=== PATIENT | male | born 1965 | race Caucasian/White ===

== ENCOUNTER → 2018-05-19 13:05 | Outpatient (REF) | payer MEDICARE, SELFPAY ==
[2018-05-19 14:17] LABS: ALT 19 U/L (12-78); AST 14 U/L (15-37); Albumin 3.2 g/dL (3.4-5.0); Alkaline Phosphatase 99 U/L (46-116); Anion Gap 7.9 mmol/L (3-11); BUN 9 mg/dL (7-18); Bilirubin, Total 0.1 mg/dL (0.2-1.0); CO2 28.1 mmol/L (21.0-32.0); CREATININE 0.96 mg/dL (0.70-1.30); Calcium 8.6 mg/dL (8.5-10.1); Chloride 103 mmol/L (98-107); Glucose 87 mg/dL (70-100); Potassium 4.5 mmol/L (3.5-5.1); Sodium 139 mmol/L (136-145); Total Protein 6.6 g/dL (6.4-8.2)
[2018-05-19 14:21] LABS: VALPROIC ACID 70.5 ug/mL (50-100)
== END ==
LOC: NCHCN 13:05
PROVIDERS: PCP Nurse Practitioner Family; Visit Provider Nurse Practitioner Family
DX: R56.9 Unspecified convulsions (principal); Z51.81 Encounter for therapeutic drug level monitoring; Z79.899 Other long term (current) drug therapy
CPT/HCPCS: 80053; 80164

== ENCOUNTER → 2018-07-23 09:44 | Outpatient (BNVA) | payer MEDICARE, SELFPAY | PROVIDERS: Visit Provider Psychiatry & Neurology Neurology | DX: G44.40 Drug-induced headache, not elsewhere classified, not intractable; G43.709 Chronic migraine without aura, not intractable, without status migrainosus; G40.109 Localization-related (focal) (partial) symptomatic epilepsy and epileptic syndromes with simple partial seizures, not intractable, without status epilepticus; J44.9 Chronic obstructive pulmonary disease, unspecified; F17.210 Nicotine dependence, cigarettes, uncomplicated | CPT/HCPCS: 99205; 99215 ==

== ENCOUNTER 2018-07-29 11:31 | Emergency (ER) | payer MEDICARE, SELFPAY ==
[2018-07-29 11:39] VITALS: BP 100/63; PULSE 70; RESP 16; TEMP 36.3; O2SAT 97
--- NOTE | 2018-07-29 12:44 | W.ED.GENAD ---
Discharge Plan Disposition Patient Disposition: HOME Condition: Good Discharge Details Chief Complaint: Laceration Clinical Impression: Abrasion of scalp Primary Care Provider: Elsie Barrios ED Provider: Efrain Edgar Home Meds and New Rx's Prescriptions: No Action topiramate [Trokendi XR] 200 mg capsule,extended release 24hr 200 mg PO DAILY Qty: 30 RF: 5 gabapentin 800 mg tablet 800 mg PO TID RF: 0 divalproex 500 mg tablet extended release 24 hr 1,500 mg PO DAILY Qty: 90 RF: 11 methadone 40 MG tablet,soluble 105 mg PO DAILY RF: 0 ranitidine HCl 75 MG tablet 75 mg PO 2 tabs daily RF: 0 [id number] [Fiorinal] 1 EACH capsule 1 - 2 tab-cap PO Q4H PRN RF: 0 clotrimazole-betamethasone [Lotrisone] 15 GM cream 15 gm Topical BID RF: 0 acetaminophen 325 MG tablet 975 mg PO QID PRN PRNRF: 0 loperamide 2 MG capsule 2 mg PO Q4H PRN PRNRF: 0 Discharge Instructions Instructions: Acute Wound Care (ED) Additional Instructions: Feel free to return to the emergency department for any further concerns he may have otherwise follow-up with your primary care provider as needed for reassessment Referrals: Elsie Barrios [Primary Care Provider] - (As needed for reassessment) Discharge Data Discharge Date/Time-TO BE ENTERED AT DEPARTURE: 07/29/18 13:08 Medical Decision Making Patient presenting to the emergency department for chief complaint of bleeding from a wound on his head. Patient states years ago he had an injury that healed appropriately but 3 weeks ago he bumped the same area and caused an abrasion to his scalp. Today it was slightly itching and so he accidentally picked the scab off and had mild bleeding. Patient denies any other injury or trauma and states no other complaints at this time. Patient states main concern was possible infection and due to where it is located on his head just wanted somebody to look at it. Visualization of the wound on the right superior parietal aspect of the scalp shows a superficial abrasion with some scabbing still present around the edges but otherwise no concerning findings for infection or other abnormalities are noted. Wound was cleansed and bacitracin was applied to it and patient was given instructions on wound care. After discussion of diagnosis and plan of care patient has no further needs, questions, or concerns and states clear understanding to return to the emergency department for any worsening symptoms. HPI General Mode of arrival: ambulatory. Date/Time Provider Initiated Documentation: 07/29/18 11:55. Limitations to Documentation: no limitations. Information obtained by: patient and RN notes reviewed. History of Present Illness 53 year old M presents to the emergency department with the chief complaint of Head scab, described as mild, with intensity rated at 3. Quality is described as aching, and is localized to the head. Patient started experiencing this week(s) (3) and it has been constant. No relieving factors improve symptom(s), No exacerbating factors reported . Patient notes no other symptoms.. Patient did receive the following treatments prior to arrival, none Related Data Home Medications Medication Instructions Recorded Confirmed acetaminophen 975 mg PO QID PRN PRN 08/15/13 07/23/18 loperamide 2 mg PO Q4H PRN PRN 08/15/13 07/23/18 methadone 105 mg PO DAILY tab-cap 01/13/14 07/29/18 ranitidine HCl 75 mg PO 2 tabs daily tab-cap 01/13/14 07/29/18 [id number]-jabbaal-rldmhdsk 1 - 2 tab-cap PO Q4H PRN tab-cap 06/30/17 07/23/18 [Fiorinal] clotrimazole-betamethasone 15 gm TOPICAL BID 02/05/18 07/23/18 [Lotrisone] divalproex ER 500 mg 1,500 mg PO DAILY #90 tab 07/23/18 07/29/18 tablet,extended release 24 hr gabapentin 800 mg tablet 800 mg PO TID tab-cap 07/23/18 07/29/18 topiramate XR 200 mg 200 mg PO DAILY #30 cap 07/23/18 07/29/18 capsule,extended release 24 hr Previous Rx's Medication Instructions Recorded topiramate XR 200 mg 200 mg PO DAILY #30 cap 07/23/18 capsule,extended release 24 hr Allergies Allergy/AdvReac Type Severity Reaction Status Date / Time paroxetine HCl [From Paxil] AdvReac Intermediate states Unverified 07/29/18 11:43 starts crawling out of skin citalopram AdvReac Mild flushing Verified 07/29/18 11:43 General Stated Complaint: Laceration JESSICA: 4 Review of Systems Constitutional Denies chills and Denies fever(s) Cardiovascular Denies chest pain and Denies syncope Gastrointestinal Denies abdominal pain, Denies nausea and Denies vomiting Integumentary/Breasts Reports as per HPI, Denies changing lesions and Denies rash Neurologic Denies confusion, Denies syncope and Denies sensory deficit Psychiatric Denies confusion PFSH Family History Other Seizure Medical History TBI (traumatic brain injury) (Chronic) Medication overuse headache (Chronic) Headache, chronic migraine without aura (Chronic) Opioid dependence (Chronic) Focal epilepsy (Chronic) Tobacco dependence (Chronic) PTSD (post-traumatic stress disorder) (Chronic) COPD (chronic obstructive pulmonary disease) (Chronic) GERD (gastroesophageal reflux disease) (Chronic) Acute appendicitis with generalized peritonitis (Resolved) Opioid abuse, in remission (Resolved) Seizure disorder (Resolved) Social History household members: children housing: apartment current occupational status: disabled Smoking/Tobacco Use Status: Current every day tobacco type: cigarettes alcohol intake: never substance use type: former substance user Date of last use: benzos, opioids and marijuana additional social history: . Lives with 16 yo son. Has 7 children. Previously incarcerated. Smokes 1/2 ppd. 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 Uses MJ regularly. Surgical History Hx of craniotomy (Acute) History of appendectomy (Chronic) Exam Const General: cooperative, no acute distress and not ill appearing Orientation: alert, awake and oriented x3 HENMT Mouth: moist mucous membranes Resp Effort & Inspection: normal respiratory effort, able to speak in complete sentences and no respiratory distress Skin Trauma: abrasion (To right parietal bone) Neuro General: alert, awake, oriented x3, moves all extremities and no focal motor deficits Sensory Exam: no sensory deficits noted Course Vital Signs Temperature 36.3 C L 07/29/18 11:39 Pulse 70 07/29/18 11:39 Respiratory Rate 16 07/29/18 11:39 Blood Pressure 100/63 07/29/18 11:39 Pulse Oximetry 97 07/29/18 11:39 Temperature 36.3 C L 07/29/18 11:39 Pulse 70 07/29/18 11:39 Respiratory Rate 16 07/29/18 11:39 Respiratory Effort 07/29/18 11:42 Blood Pressure 100/63 07/29/18 11:39 Pulse Oximetry 97 07/29/18 11:39 Oxygen Delivery Method Room Air 07/29/18 11:39 Oxygen Flow Rate 0 07/29/18 11:39 Pain Level 5 07/29/18 11:39
--- NOTE | 2018-07-29 12:50 | ED.GENADUL_ITS ---
Discharge Plan Disposition Patient Disposition: HOME Condition: Good Discharge Details Chief Complaint: Laceration Clinical Impression: Abrasion of scalp Primary Care Provider: Elsie Barrois ED Provider: Efrain Edgar Home Meds and New Rx's Prescriptions: No Action topiramate [Trokendi XR] 200 mg capsule,extended release 24hr 200 mg PO DAILY Qty: 30 RF: 5 gabapentin 800 mg tablet 800 mg PO TID RF: 0 divalproex 500 mg tablet extended release 24 hr 1,500 mg PO DAILY Qty: 90 RF: 11 methadone 40 MG tablet,soluble 105 mg PO DAILY RF: 0 ranitidine HCl 75 MG tablet 75 mg PO 2 tabs daily RF: 0 [id number] [Fiorinal] 1 EACH capsule 1 - 2 tab-cap PO Q4H PRN RF: 0 clotrimazole-betamethasone [Lotrisone] 15 GM cream 15 gm Topical BID RF: 0 acetaminophen 325 MG tablet 975 mg PO QID PRN PRNRF: 0 loperamide 2 MG capsule 2 mg PO Q4H PRN PRNRF: 0 Discharge Instructions Instructions: Acute Wound Care (ED) Additional Instructions: Feel free to return to the emergency department for any further concerns he may have otherwise follow-up with your primary care provider as needed for reassessment Referrals: Elsie Barrios [Primary Care Provider] - (As needed for reassessment) Discharge Data Discharge Date/Time-TO BE ENTERED AT DEPARTURE: 07/29/18 13:08 Medical Decision Making Patient presenting to the emergency department for chief complaint of bleeding from a wound on his head. Patient states years ago he had an injury that healed appropriately but 3 weeks ago he bumped the same area and caused an abrasion to his scalp. Today it was slightly itching and so he accidentally picked the scab off and had mild bleeding. Patient denies any other injury or trauma and states no other complaints at this time. Patient states main concern was possible infection and due to where it is located on his head just wanted somebody to look at it. Visualization of the wound on the right superior parietal aspect of the scalp shows a superficial abrasion with some scabbing still present around the edges but otherwise no concerning findings for infection or other abnormalities are noted. Wound was cleansed and bacitracin was applied to it and patient was given instructions on wound care. After discussion of diagnosis and plan of care patient has no further needs, questions, or concerns and states clear understanding to return to the emergency department for any worsening symptoms. HPI General Mode of arrival: ambulatory . Date/Time Provider Initiated Documentation: 07/29/18 11:55 . Limitations to Documentation: no limitations . Information obtained by: patient and RN notes reviewed . History of Present Illness 53 year old M presents to the emergency department with the chief complaint of Head scab, described as mild, with intensity rated at 3. Quality is described as aching, and is localized to the head. Patient started experiencing this week(s) (3) and it has been constant. No relieving factors improve symptom(s), No exacerbating factors reported . Patient notes no other symptoms.. Patient did receive the following treatments prior to arrival, none Related Data Home Medications Medication Instructions Recorded Confirmed acetaminophen 975 mg PO QID PRN PRN 08/15/13 07/23/18 loperamide 2 mg PO Q4H PRN PRN 08/15/13 07/23/18 methadone 105 mg PO DAILY tab-cap 01/13/14 07/29/18 ranitidine HCl 75 mg PO 2 tabs daily tab-cap 01/13/14 07/29/18 [id number]-glzwwpy-[id number] 1 - 2 tab-cap PO Q4H PRN tab-cap 06/30/17 07/23/18 [Fiorinal] clotrimazole-betamethasone 15 gm TOPICAL BID 02/05/18 07/23/18 [Lotrisone] divalproex ER 500 mg 1,500 mg PO DAILY #90 tab 07/23/18 07/29/18 tablet,extended release 24 hr gabapentin 800 mg tablet 800 mg PO TID tab-cap 07/23/18 07/29/18 topiramate XR 200 mg 200 mg PO DAILY #30 cap 07/23/18 07/29/18 capsule,extended release 24 hr Previous Rx's Medication Instructions Recorded topiramate XR 200 mg 200 mg PO DAILY #30 cap 07/23/18 capsule,extended release 24 hr Allergies Allergy/AdvReac Type Severity Reaction Status Date / Time paroxetine HCl [From Paxil] AdvReac Intermediate states Unverified 07/29/18 11: 43 starts crawling out of skin citalopram AdvReac Mild flushing Verified 07/29/18 11:43 General Stated Complaint: Laceration JESSICA: 4 Review of Systems Constitutional Denies chills and Denies fever(s) Cardiovascular Denies chest pain and Denies syncope Gastrointestinal Denies abdominal pain, Denies nausea and Denies vomiting Integumentary/Breasts Reports as per HPI, Denies changing lesions and Denies rash Neurologic Denies confusion, Denies syncope and Denies sensory deficit Psychiatric Denies confusion PFSH Family History Other Seizure Medical History TBI (traumatic brain injury) (Chronic) Medication overuse headache (Chronic) Headache, chronic migraine without aura (Chronic) Opioid dependence (Chronic) Focal epilepsy (Chronic) Tobacco dependence (Chronic) PTSD (post-traumatic stress disorder) (Chronic) COPD (chronic obstructive pulmonary disease) (Chronic) GERD (gastroesophageal reflux disease) (Chronic) Acute appendicitis with generalized peritonitis (Resolved) Opioid abuse, in remission (Resolved) Seizure disorder (Resolved) Social History household members: children housing: apartment current occupational status: disabled Smoking/Tobacco Use Status: Current every day tobacco type: cigarettes alcohol intake: never substance use type: former substance user Date of last use: benzos, opioids and marijuana additional social history: . Lives with 16 yo son. Has 7 children. Previously incarcerated. Smokes 1/2 ppd. 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 Uses MJ regularly. Surgical History Hx of craniotomy (Acute) History of appendectomy (Chronic) Exam Const General: cooperative, no acute distress and not ill appearing Orientation: alert, awake and oriented x3 HENMT Mouth: moist mucous membranes Resp Effort & Inspection: normal respiratory effort, able to speak in complete sentences and no respiratory distress Skin Trauma: abrasion (To right parietal bone) Neuro General: alert, awake, oriented x3, moves all extremities and no focal motor deficits Sensory Exam: no sensory deficits noted Course Vital Signs Temperature 36.3 C L 07/29/18 11:39 Pulse 70 07/29/18 11:39 Respiratory Rate 16 07/29/18 11:39 Blood Pressure 100/63 07/29/18 11:39 Pulse Oximetry 97 07/29/18 11:39 Temperature 36.3 C L 07/29/18 11:39 Pulse 70 07/29/18 11:39 Respiratory Rate 16 07/29/18 11:39 Respiratory Effort 07/29/18 11:42 Blood Pressure 100/63 07/29/18 11:39 Pulse Oximetry 97 07/29/18 11:39 Oxygen Delivery Method Room Air 07/29/18 11:39 Oxygen Flow Rate 0 07/29/18 11:39 Pain Level 5 07/29/18 11:39
== END 2018-07-29 13:08 | disposition home or self-care (01) ==
PROVIDERS: Emergency Provider Nurse Practitioner Family; PCP Nurse Practitioner Family
DX: S00.01XA Abrasion of scalp, initial encounter (principal); X58.XXXA Exposure to other specified factors, initial encounter; J44.9 Chronic obstructive pulmonary disease, unspecified
CPT/HCPCS: 99282

== ENCOUNTER 2018-09-21 12:55 | Emergency (ER) | payer OTHER, MEDICARE, SELFPAY ==
[2018-09-21] VITALS (10 sets, daily range): BP systolic 110–137; BP diastolic 84–93; PULSE 68–83; RESP 13–25; TEMP 36.6; O2SAT 95–100
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
[2018-09-21 13:19] LABS: Abs Immature Grans 0.03 k/cumm (0.0-0.09); Absolute Basophil Count 0.07 k/cumm (0.0-0.2); Absolute Eosinophil Count 0.13 k/cumm (0.0-0.7); Absolute Lymphocyte Count 3.97 k/cumm (1.2-3.4); Absolute Monocyte Count 0.43 k/cumm (0.11-0.7); Absolute Neutrophil Count 3.75 k/cumm (1.2-6.7); Basophils % 0.8; Eosinophils % 1.6; HGB 12.4 g/dL (13.5-17.5); Immature Grans % 0.4; Lymphocytes % 47.4; Mean Corp. HGB Concentration 31.8 g/dL (32.0-36.0); Mean Corpuscular Hemoglobin 25.7 pg (27.0-33.0); Mean Corpuscular Volume 80.7 fL (80-95); Mean Platelet Volume 8.7 fL (8.0-11.0); Monocytes % 5.1; Neutrophils % 44.7; Platelet Count 339 x1000/uL (130-400); RBC 4.83 m/cumm (4.50-6.00); RBC Distribution Width 15.6 % (11.8-14.1); White Blood Cell Count 8.38 k/cumm (4.4-10.8)
[2018-09-21] MEDS: Lactated Ringers 1,000 ML 150 ML IV (13:33)
[2018-09-21] MEDS: LORazepam 2 MG/ML VIAL 1 MG IVP (13:34)
[2018-09-21 13:57] LABS: ETHANOL BLOOD 163.3 mg/dL (<3)
[2018-09-21 13:58] LABS: ALT 31 U/L (12-78); AST 41 U/L (15-37); Albumin 3.3 g/dL (3.4-5.0); Alkaline Phosphatase 103 U/L (46-116); Anion Gap 9.2 mmol/L (3-11); BUN 10 mg/dL (7-18); Bilirubin, Total 0.2 mg/dL (0.2-1.0); CO2 31.8 mmol/L (21.0-32.0); CREATININE 0.95 mg/dL (0.70-1.30); Calcium 9.4 mg/dL (8.5-10.1); Chloride 101 mmol/L (98-107); Glucose 91 mg/dL (70-100); Magnesium 2.3 mg/dL (1.8-2.4); Potassium 3.6 mmol/L (3.5-5.1); Sodium 142 mmol/L (136-145); Total Protein 7.2 g/dL (6.4-8.2)
[2018-09-21 14:03] LABS: Troponin I < 0.02 ng/mL (0.00-0.06)
[2018-09-21] MEDS: Omnipaque 350 MG/ML 100 ML BTL IV (14:57)
[2018-09-21] MEDS: Ketorolac 30 MG/ML VIAL IVP (15:56)
== END 2018-09-21 16:16 | disposition home or self-care (01) ==
LOC: ER 16:26
PROVIDERS: Emergency Provider Emergency Medicine; PCP Nurse Practitioner Family
DX: S22.31XA Fracture of one rib, right side, initial encounter for closed fracture (principal); S80.211A Abrasion, right knee, initial encounter; V48.6XXA Car passenger injured in noncollision transport accident in traffic accident, initial encounter; F10.129 Alcohol abuse with intoxication, unspecified; Y90.6 Blood alcohol level of 120-199 mg/100 ml; J44.9 Chronic obstructive pulmonary disease, unspecified; F17.210 Nicotine dependence, cigarettes, uncomplicated
CPT/HCPCS: 36415; 74177; 80053; 96361; 96372; 96374; 96375; 99284; 70450; 71260; 72125; 73560; 80320; 83735; 84484; 85025; J1885; J2060; J3490

== ENCOUNTER 2018-11-03 09:21 | Outpatient (REF) | payer MEDICARE, SELFPAY ==
[2018-11-03 14:44] LABS: Cholesterol 267 mg/dL (50-200); HDL Cholesterol 74 mg/dL (40-60); LDL CHOLESTEROL 169 mg/dL (<100); Triglyceride 169 mg/dL (30-150)
== END 2018-11-03 09:41 ==
LOC: NCHCN 09:21
PROVIDERS: PCP Nurse Practitioner Family; Visit Provider Nurse Practitioner Family
DX: E78.89 Other lipoprotein metabolism disorders (principal)
CPT/HCPCS: 80061; 83721

== ENCOUNTER 2018-11-17 18:04 | Emergency (ER) | payer MEDICARE, SELFPAY ==
[2018-11-17] VITALS (63 sets, daily range): BP systolic 103–139; BP diastolic 57–86; PULSE 71–101; RESP 11–24; TEMP 36.8; O2SAT 77–100
--- NOTE | 2018-11-17 18:27 | DI.CT_ITS ---
SYMPTOM/DIAGNOSIS: FELL DOWN STAIRS, TRAUMA, RIB AND BACK PAIN, ALTERED MENTAL STATUS, PAIN NONCONTRAST HEAD CT: No intracranial hemorrhage or skull fracture is seen. There is right frontal scalp soft tissue swelling. There is mild mucosal thickening of the sinuses. The mastoid air cells appear clear. The ventricles are normal in size. IMPRESSION: Right frontal scalp swelling. No skull fracture or acute intracranial abnormality. CERVICAL SPINE CT: There is no evidence of fracture. The alignment appears normal. There are degenerative disc changes. There is no paraspinal hematoma. IMPRESSION: Degenerative disc changes. No acute abnormality. CHEST CT: There are nondisplaced fractures of the right posterior 11th and 12th ribs. No pneumothorax, contusion or pleural or pericardial effusions are seen. There are old right rib fractures seen more superiorly and an old left 1st rib fracture. IMPRESSION: Right 11th and 12th rib fractures. No pneumothorax. ABDOMEN AND PELVIC CT: The liver shows mild fatty infiltration. The gallbladder, spleen, pancreas, kidneys and adrenals are unremarkable. The urinary bladder appears intact. There is no free air or free fluid. There is no bowel dilatation or wall thickening. The spine and pelvis appear intact. IMPRESSION: Mild fatty liver. No acute abnormality in the abdomen or pelvis. THORACIC SPINE CT: There is mild loss of disc height anteriorly and endplate osteophyte formation involving the T 3 vertebral body. The findings are not significantly changed from the previous exam. There is a minimal anterior compression of T 2 with a question of a lucency which could represent an acute fracture. No additional fracture or changes are seen. IMPRESSION: Old mild T 3 compression fracture. Question of a mild acute compression fracture of the anterior superior endplate of T 2. LUMBAR SPINE CT: Comparison is made with chest, abdomen and pelvic CT of 09/12/10. There is no evidence of fracture. The alignment appears normal. There are mild degenerative disc changes. No spondylolysis or spondylolisthesis is seen. IMPRESSION: No acute abnormality.
[2018-11-17 18:48] LABS: Abs Immature Grans 0.02 k/cumm (0.0-0.09); Absolute Basophil Count 0.03 k/cumm (0.0-0.2); Absolute Eosinophil Count 0.02 k/cumm (0.0-0.7); Absolute Monocyte Count 0.71 k/cumm (0.11-0.7); Absolute Neutrophil Count 6.03 k/cumm (1.2-6.7); Basophils % 0.4; Eosinophils % 0.2; HCT 37.2 % (40.0-50.0); HGB 11.5 g/dL (13.5-17.5); Immature Grans % 0.2; Lymphocytes % 18.1; Mean Corp. HGB Concentration 30.9 g/dL (32.0-36.0); Mean Corpuscular Hemoglobin 25.1 pg (27.0-33.0); Mean Corpuscular Volume 81.2 fL (80-95); Mean Platelet Volume 8.9 fL (8.0-11.0); Monocytes % 8.5; Neutrophils % 72.6; Platelet Count 246 x1000/uL (130-400); RBC 4.58 m/cumm (4.50-6.00); RBC Distribution Width 15.6 % (11.8-14.1); White Blood Cell Count 8.31 k/cumm (4.4-10.8)
[2018-11-17 19:02] LABS: Prothrombin Time 9.8 sec (9.3-11.0)
[2018-11-17 19:14] LABS: ALT 33 U/L (12-78); AST 31 U/L (15-37); Alkaline Phosphatase 115 U/L (46-116); Anion Gap 7.5 mmol/L (3-11); BUN 14 mg/dL (7-18); Bilirubin, Total 0.1 mg/dL (0.2-1.0); CO2 29.5 mmol/L (21.0-32.0); CREATININE 1.06 mg/dL (0.70-1.30); Calcium 8.9 mg/dL (8.5-10.1); Chloride 103 mmol/L (98-107); Glucose 134 mg/dL (70-100); Potassium 3.8 mmol/L (3.5-5.1); Sodium 140 mmol/L (136-145); Total Protein 7.3 g/dL (6.4-8.2)
[2018-11-17] MEDS: Omnipaque 350 MG/ML 100 ML BTL IJ (19:14)
[2018-11-17 19:16] LABS: ETHANOL BLOOD < 3.0 mg/dL (<3)
[2018-11-17 19:17] LABS: Troponin I < 0.02 ng/mL (0.00-0.06)
--- NOTE | 2018-11-17 19:17 | ED.GENADUL_ITS ---
Discharge Plan Disposition Patient Disposition: HOME Condition: Good Discharge Details Chief Complaint: Trauma Clinical Impression: Facial laceration, Multiple fractures of ribs of right side, Closed fracture of right distal radius, Abrasion, multiple sites, Fall down stairs Reason For Visit: SHAUNNA Primary Care Provider: Elsie Barrios ED Provider: Dez Marquez [place] Meds and New Rx's Prescriptions: New lidocaine 5 % adhesive patch,medicated 1 patch TP DAILY Qty: 15 RF: 0 ibuprofen 600 mg tablet 600 mg PO TID PRN (Reason: pain) Qty: 20 RF: 0 Continued Trokendi XR 200 mg capsule,extended release 24hr 200 mg PO DAILY Qty: 30 RF: 5 gabapentin 800 mg tablet 800 mg PO TID RF: 0 divalproex 500 mg tablet extended release 24 hr 1,500 mg PO DAILY Qty: 90 RF: 11 methadone 40 MG tablet,soluble 105 mg PO DAILY RF: 0 ranitidine HCl 75 MG tablet 75 mg PO 2 tabs daily RF: 0 clotrimazole-betamethasone [Lotrisone] 15 GM cream 15 gm Topical BID RF: 0 acetaminophen 325 MG tablet 975 mg PO QID PRN PRNRF: 0 loperamide 2 MG capsule 2 mg PO Q4H PRN PRNRF: 0 Discharge Instructions Instructions: How to Use an Incentive Spirometer (ED), Splint Care (ED), Fall Prevention (ED), Facial Laceration (ED) Additional Instructions: Avoid drugs and alcohol. You have a laceration above the right eye with stitches in place. They should come out in 5-7 days. Watch for signs of infection. You have some broken ribs on the right. Use the Lidoderm patch to help. Take Tylenol or Motrin as needed as well. Incentive spirometer as directed. You also have a right wrist fracture. Leave the splint in place and do not get it wet. Keep your arm elevated. You will need to follow-up with orthopedics. You should also follow-up with primary care. Make appointments for both next week. Return to ED for difficulty breathing, fever, neurologic changes, increasing pain, other concerns. Referrals: Elsie Barrios [Primary Care Provider] - Fabrice Salcedo MD [ [facility] STAFF PHYSICIAN] - Discharge Data Discharge Date/Time-TO BE ENTERED AT DEPARTURE: 11/18/18 02:44 Medical Decision Making <Luan Neri MD - Last Filed: 12/15/18 23:21> 19:00 --patient seen immediately on arrival. Patient is a 53-year-old male with history of opioid dependence, on methadone, who used azucena or heroin or some combination and fell down a flight of stairs. Patient is altered -unreliable history and exam. Concerned about potential acute life-threatening traumatic injury. Plan to CT his head, cervical spine, chest and abdomen pelvis. He does have focal tenderness along his low thoracic spine. Consider spinal fracture. I will obtain dedicated images of his thoracic and lumbar spine. Patient has a facial laceration that will require primary closure. Patient is currently obtunded but protecting airway. 20:00 --wound irrigated and closed. Please see lack repair note. CT of the head interpreted by radiology L[place], findings, right frontal scalp swelling associated with small hematoma. CT of the cervical spine interpreted by radiology: No cervical spine fracture, degenerative changes. Nonacute appearing nondisplaced posterior left first rib fracture without significant displacement. CT of chest, abd, pelv, and T and L spines pending. Care signed out to Dr. Marquez. <eDz Marquez MD - Last Filed: 11/18/18 02:30> Lab Data Lab results reviewed: Yes I reviewed the patient's lab results. ECG Data Attestation: I personally reviewed and interpreted this ECG (s) as follows: Prior ECG tracings: not available for review Interpretation: Normal sinus rhythm at 84. Normal axis and intervals. Normal QT segment. HPI <Luan Neri MD - Last Filed: 12/15/18 23:21> General Mode of arrival: ambulatory . Date/Time Provider Initiated Documentation: 11/17/18 18:27 . Limitations to Documentation: altered mental status . Information obtained by: patient and EMS . HPI Narrative: 53-year-old male with multiple medical problems including history of traumatic brain injury, seizure disorder, opioid dependence, on methadone, COPD, presents with EMS after fall down flight of 14 stairs. Patient is altered which limits history and review of systems. EMS note that he did impact his head on the wall at the bottom of the stairs. Patient told EMS that he used heroin. He denies this to me. He states that he used Azucena. Related Data Home Medications Medication Instructions Recorded Confirmed acetaminophen 975 mg PO QID PRN PRN 08/15/13 12/02/18 loperamide 2 mg PO Q4H PRN PRN 08/15/13 12/02/18 methadone 105 mg PO DAILY tab-cap 01/13/14 12/02/18 ranitidine HCl 75 mg PO 2 tabs daily tab-cap 01/13/14 12/02/18 clotrimazole-betamethasone 15 gm TOPICAL BID 02/05/18 12/02/18 [Lotrisone] divalproex ER 500 mg 1,500 mg PO DAILY #90 tab 07/23/18 12/02/18 tablet,extended release 24 hr gabapentin 800 mg tablet 800 mg PO TID tab-cap 07/23/18 12/02/18 topiramate XR 200 mg 200 mg PO DAILY #30 cap 07/23/18 12/02/18 capsule,extended release 24 hr ibuprofen 600 mg PO TID PRN #20 tab 11/18/18 12/02/18 lidocaine 1 patch TP DAILY #15 each 11/18/18 12/02/18 Previous Rx's Medication Instructions Recorded topiramate XR 200 mg 200 mg PO DAILY #30 cap 07/23/18 capsule,extended release 24 hr ibuprofen 600 mg PO TID PRN #20 tab 11/18/18 lidocaine 1 patch TP DAILY #15 each 11/18/18 Allergies Allergy/AdvReac Type Severity Reaction Status Date / Time paroxetine HCl [From Paxil] AdvReac Intermediate states Unverified 12/02/18 09:41 starts crawling out of skin citalopram AdvReac Mild flushing Verified 12/02/18 09:41 General Stated Complaint: Trauma JESSICA: 2 Review of Systems <Luan Neri MD - Last Filed: 12/15/18 23:21> Review of Systems Limited secondary to altered patient -patient notes that he has some back pain, headache, and rib pain PFSH <Luan Neri MD - Last Filed: 12/15/18 23:21> Medical History TBI (traumatic brain injury) (Chronic) Medication overuse headache (Chronic) Headache, chronic migraine without aura (Chronic) Opioid dependence (Chronic) Focal epilepsy (Chronic) Tobacco dependence (Chronic) PTSD (post-traumatic stress disorder) (Chronic) COPD (chronic obstructive pulmonary disease) (Chronic) GERD (gastroesophageal reflux disease) (Chronic) Acute appendicitis with generalized peritonitis (Resolved) Opioid abuse, in remission (Resolved) Seizure disorder (Resolved) Surgical History Hx of craniotomy (Acute) History of appendectomy (Chronic) Family History Other Seizure Social History household members: children housing: apartment current occupational status: disabled Smoking and Tabacco status: Current every day tobacco type: cigarettes alcohol intake: never substance use type: former substance user Date of last use: benzos, opioids and marijuana additional social history: . Lives with 16 yo son. Has 7 children. Previously incarcerated. Smokes 1/2 ppd. 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 Uses MJ regularly. Exam <Luan Neri MD - Last Filed: 12/15/18 23:21> Const General: cooperative HENMT Head: abrasion left frontal, no Patel's sign, laceration (Right forehead), no palpable skull fracture and no raccoon eyes General nose exam: septum normal Mouth: moist mucous membranes Eyes Conjunctivae: normal conjunctivae Sclera: normal sclerae Pupils: PERRL and pupil size bilaterally 40 EOM: EOM intact bilaterally Neck Neck: trachea midline and supple Resp Auscultation: clear to auscultation bilaterally, no rales, no rhonchi and no wheezes Cardio Jugular venous pressure: no JVD Rate: regular rate and not tachycardic Rhythm: regular rhythm GI Palpation: soft, not firm, no guarding, no masses, not rigid and nontender Back/Spine/Pelvis Cervical Spine: other (C-collar intact) Thoracic/Lumbar Spine: thoracic spinal tenderness (No thoracic midline) Skin Trauma: laceration (3 cm right forehead) Neuro General: alert, awake, oriented Patient Orientation: Person, Place and Confused, obtunded and other (Slowed responses) Motor: strength 5/5 throughout Sensory Exam: no sensory deficits noted Extrem General: no edema Psych Affect: blunted Attitude: cooperative Course <Luan Neri MD - Last Filed: 12/15/18 23:21> Vital Signs Temperature 36.8 C 11/17/18 18:05 Pulse 101 H 11/17/18 18:05 Respiratory Rate 18 11/17/18 18:05 Blood Pressure 139/68 11/17/18 18:05 Temperature 36.8 C 11/17/18 18:05 Temperature Source Skin 11/17/18 18:05 Pulse 101 H 11/17/18 18:05 Respiratory Rate 18 11/17/18 18:05 Respiratory Effort Non-Labored 11/17/18 18:19 Respiratory Depth Normal 11/17/18 18:19 Respiratory Pattern Normal 11/17/18 18:19 Blood Pressure 139/68 11/17/18 18:05 Blood Pressure Position Sitting 11/17/18 18:05 Pain Level 6 11/17/18 18:19 Lab/Test Results Lab/Test Results: Laboratory Tests Range/Units 11/17/18 18:35 WBC (4.4-10.8) k/cumm 8.31 RBC (4.50-6.00) m/cumm 4.58 Hgb (13.5-17.5) g/dL 11.5 L Hct (40.0-50.0) % 37.2 L MCV (80-95) fL 81.2 MCH (27.0-33.0) pg 25.1 L MCHC (32.0-36.0) g/dL 30.9 L RDW (11.8-14.1) % 15.6 H Plt Count (130-400) x1000/uL 246 MPV (8.0-11.0) fL 8.9 Immature Gran % 0.2 Neutrophils % 72.6 Lymphocytes % 18.1 Monocytes % 8.5 Eosinophils % 0.2 Basophils % 0.4 Absolute Neutrophils (1.2-6.7) k/cumm 6.03 Absolute Lymphocytes (1.2-3.4) k/cumm 1.50 Absolute Monocytes (0.11-0.7) k/cumm 0.71 H Absolute Eosinophils (0.0-0.7) k/cumm 0.02 Absolute Basophils (0.0-0.2) k/cumm 0.03 Procedures <Luan Neri MD - Last Filed: 12/15/18 23:21> Laceration Laceration 1: Site: face Side (If applicable): right Size (cm): 4 Description: linear Depth: simple, single layer Local Anesthetic: Lidocaine 1% and with Epi Amount of anesthesia used (mL): 3 Skin layer closed with: other (prolene) Size (cm): 5-0 Number of sutures: 4 Technique: horizontal mattress <Dez Marquez MD - Last Filed: 11/18/18 02:30> Orthopedic Splinting/Casting Injury #1: Side: right Upper Extremity Injury Location: wrist Upper Extremity Immobilizer: volar spint and thumb spica Sign Out <Luan Neri MD - Last Filed: 12/15/18 23:21> Sign Out Data: Sign Out Comment: Care signed out to Dr. Marquez. Plan to follow-up on diagnostic testing and reassess patient for disposition. Last updated by Luan Neri MD at 11/17/18 20:04 Post-Handoff Eval: Patient signed out to me pending mental status clearing so we can evaluate for further injury. Of note laboratory studies are unremarkable. He has a mild anemia which is chronic. His alcohol level is 0. Drug screen did come back positive for methadone, benzodiazepines, cocaine, marijuana. Patient's mental status slowly came back to normal. CT of the head and cervical spine are negative. Chest CT shows acute right posterior 11th and 12th rib fractures nondisplaced. Multiple nonacute fractures also noted. Abdominal pelvic CT negative. Thoracic lumbar spine CT negative for acute injury. There are findings at T2 that have been present previously and are not acute. Patient mental status began to clear he began to complain of pain in the ribs in the right wrist. Right wrist does appear swollen. He also woke up and was hav ing difficulty breathing. On reexam he had breath sounds bilaterally but was wheezing throughout. He was given a DuoNeb treatment. Repeat chest x-ray to rule out pneumothorax ordered. Right wrist film ordered. Toradol given for pain. Lidoderm patch applied to the posterior right ribs. Chest x-ray shows no pneumothorax. DuoNeb helped and his saturations came up. His wheezing diminished. Still has rhonchi. Right wrist x-ray shows a distal radius fracture nondisplaced. Questionable scaphoid fracture. Patient began to have nausea. He is on methadone soon EKG is obtained. Sinus rhythm with normal QT intervals. Zofran is given. Because of the distal radius fracture and a questionable scaphoid fracture I elected to place him in a thumb spica splint with reinforcement with a volar short arm splint. Will refer to orthopedics for follow-up. He will be given an incentive spirometer to use for his breathing. He will be asked to use ibuprofen and acetaminophen for pain. Follow-up with primary care next week. Follow-up with orthopedics in 1 week. Return to ED for fever, increasing shortness, increasing pain, neurologic change, abdominal pain, other concerns.
[2018-11-17] MEDS: Lidocaine/Epinephri/Tetracaine Topical Gel 3 ML TP (19:28)
--- NOTE | 2018-11-17 19:49 | DI.VRAD_ITS ---
EXAM: CT Head Without Contrast EXAM DATE/TIME: 11/17/2018 6:30 PM CLINICAL HISTORY: 53 years old, male; Signs and symptoms; Other: Fall down 14 stairs, altered TECHNIQUE: Axial computed tomography images of the head/brain without contrast. All CT scans at this facility use at least one of these dose optimization techniques: automated exposure control; mA and/or kV adjustment per patient size (includes targeted exams where dose is matched to clinical indication); or iterative reconstruction. Coronal and sagittal reformatted images were created and reviewed. COMPARISON: CT HEAD CERVICAL SPINE WO 09/21/2018 2:14 PM FINDINGS: Brain: Mild cerebral atrophy. No edema or hemorrhage. Ventricles: No ventriculomegaly. Bones/joints: No acute fracture. Sinuses: Right frontal, right ethmoid, minimal right maxillary sinus mucosal thickening. Mastoid air cells: No mastoid effusion. Soft tissues: Right frontal scalp swelling associated with a small hematoma. IMPRESSION: 1. No acute intracranial findings. 2. Right frontal scalp swelling associated with a small hematoma. EXAM: CT Cervical Spine Without Contrast EXAM DATE/TIME: 11/17/2018 6:30 PM CLINICAL HISTORY: 53 years old, male; Signs and symptoms; Other: Fall down 14 stairs, altered TECHNIQUE: Axial computed tomography images of the cervical spine without intravenous contrast. All CT scans at this facility use at least one of these dose optimization techniques: automated exposure control; mA and/or kV adjustment per patient size (includes targeted exams where dose is matched to clinical indication); or iterative reconstruction. Coronal and sagittal reformatted images were created and reviewed. COMPARISON: CT HEAD CERVICAL SPINE WO 09/21/2018 2:14 PM FINDINGS: Vertebrae: No acute fracture or subluxation in the cervical spine. Nonacute appearing nondisplaced posterior left first rib fracture without significant displacement. Discs/Spinal canal/Neural foramina: Uncovertebral hypertrophy. Multilevel disc space narrowing. Posterior disc osteophyte complexes, small, most pronounced at C5-C6. Soft tissues: No suspicious lesions. Lungs: No consolidation. IMPRESSION: 1. No cervical spine fracture. Degenerative changes. 2. Nonacute appearing nondisplaced posterior left first rib fracture without significant displacement. Dictated and Authenticated by: Asia Allison MD. Ordering:YASMANY Roland MD
--- NOTE | 2018-11-17 20:00 | DI.VRAD_ITS ---
EXAM: CT Chest With Contrast EXAM DATE/TIME: 11/17/2018 6:30 PM CLINICAL HISTORY: 53 years old, male; Injury or trauma; Fall; Initial encounter; Blunt; Generalized; Blunt trauma (contusions or hematomas); Injury date: 11/17/17; Injury details: Fall down 14 stairs, rib pain and back pain; Patient HX: Fall, back, rib, and neck pain; Additional info: PT unable to give medical HX TECHNIQUE: Axial computed tomography images of the chest with intravenous contrast. All CT scans at this facility use at least one of these dose optimization techniques: automated exposure control; mA and/or kV adjustment per patient size (includes targeted exams where dose is matched to clinical indication); or iterative reconstruction. CONTRAST: 125 ml of Omnipaque 350 administered intravenously. COMPARISON: CT Specials^TRAUMA CAP (Adult) 09/21/2018 2:23 PM FINDINGS: Lungs: Mild centrilobular emphysema. No airspace consolidation. Mild dependent subsegmental atelectasis. Pleural space: No pneumothorax. No pleural effusion. Heart: No cardiomegaly. No pericardial effusion. Aorta: No aortic aneurysm. Lymph nodes: Mildly prominent pretracheal lymph node. Prominent subcarinal lymph node, 11 mm short axis. Bones/joints: Acute nondisplaced right posterior 11th and 12th rib fractures. Nonacute mildly distracted right posterior 10th, nonacute right posterior ninth rib fractures. No acute fracture in the thoracic spine. Nonacute fracture of medial aspect of the right posterior 11th rib. Nonacute appearing left posterior first rib fracture with surrounding periostitis. No significant displacement. Regarding the thoracic spine please see dedicated report below. Soft tissues: No suspicious lesions. IMPRESSION: 1. Acute nondisplaced right posterior 11th and 12th rib fractures. Multiple nonacute rib fractures as described. No pneumothorax. 2. Mild dependent subsegmental atelectasis. 3. Incidental findings as described. EXAM: CT Abdomen and Pelvis With Contrast EXAM DATE/TIME: 11/17/2018 6:30 PM CLINICAL HISTORY: 53 years old, male; Injury or trauma; Fall; Initial encounter; Blunt; Generalized; Blunt trauma (contusions or hematomas); Injury date: 11/17/17; Injury details: Fall down 14 stairs, rib pain and back pain; Patient HX: Fall, back, rib, and neck pain; Additional info: PT unable to give medical HX TECHNIQUE: Axial computed tomography images of the abdomen and pelvis with intravenous contrast. All CT scans at this facility use at least one of these dose optimization techniques: automated exposure control; mA and/or kV adjustment per patient size (includes targeted exams where dose is matched to clinical indication); or iterative reconstruction. CONTRAST: 125 ml of Omnipaque 350 administered intravenously. COMPARISON: CT Specials^TRAUMA CAP (Adult) 09/21/2018 2:23 PM FINDINGS: Lower thorax: Regarding the lung bases, please see same day CT thorax. ABDOMEN: Liver: Mildly fatty liver. No hepatic masses. Gallbladder and bile ducts: No calcified stones. No ductal dilation. Pancreas: No ductal dilation. No masses. Spleen: No splenomegaly or focal lesions. Adrenals: No mass. Kidneys and ureters: No hydronephrosis. No renal masses. Stomach and bowel: No obstruction. No mucosal thickening. Appendix: Appendectomy. PELVIS: Bladder: The urinary bladder is distended. Reproductive: Probable post vasectomy changes bilaterally. ABDOMEN and PELVIS: Intraperitoneal space: No free air. No significant fluid collection. Bones/joints: No acute fracture. No dislocation. Soft tissues: No suspicious lesions. Vasculature: Mild aortoiliac atherosclerosis. No aortic aneurysm. Lymph nodes: No significantly enlarged lymph nodes. IMPRESSION: 1. No acute findings. 2. Incidental findings as described. EXAM: CT Thoracic Spine With Contrast EXAM DATE/TIME: 11/17/2018 6:30 PM CLINICAL HISTORY: 53 years old, male; Injury or trauma; Fall; Initial encounter; Blunt; Generalized; Blunt trauma (contusions or hematomas); Injury date: 11/17/17; Injury details: Fall down 14 stairs, rib pain and back pain; Patient HX: Fall, back, rib, and neck pain; Additional info: PT unable to give medical HX TECHNIQUE: Axial computed tomography images of the thoracic spine with intravenous contrast. COMPARISON: CT Specials^TRAUMA CAP (Adult) 09/21/2018 2:23 PM FINDINGS: Vertebrae: A minor vertical lucency, anterior aspect of the T2 vertebral body, is better seen than on the previous study. However, minimal volume loss at the superior T2 endplate is stable. No definite acute fracture. No listhesis. Loss of height at multiple levels in the upper thoracic spine is mild in severity, generally associated with Schmorl's nodes, and appear similar to the previous study. Discs/Spinal canal/Neural foramina: No spinal stenosis. No neural foraminal narrowing. Soft tissues: No suspicious lesions. IMPRESSION: 1. A minor vertical lucency, anterior aspect of the T2 vertebral body, is better seen than on the previous study. However, minimal volume loss at the superior T2 endplate is stable. Probably nonacute. 2. No displaced fracture. No listhesis. EXAM: CT Lumbar Spine With Contrast EXAM DATE/TIME: 11/17/2018 6:30 PM CLINICAL HISTORY: 53 years old, male; Injury or trauma; Fall; Initial encounter; Blunt; Generalized; Blunt trauma (contusions or hematomas); Injury date: 11/17/17; Injury details: Fall down 14 stairs, rib pain and back pain; Patient HX: Fall, back, rib, and neck pain; Additional info: PT unable to give medical HX TECHNIQUE: Axial computed tomography images of the lumbar spine with intravenous contrast. COMPARISON: CT Specials^TRAUMA CAP (Adult) 09/21/2018 2:23 PM FINDINGS: Vertebrae: No acute fracture or subluxation. Mild anterior hypertrophic endplate changes in the lumbar spine. Mild facet hypertrophy. Minor lower lumbar disc bulges with moderate to severe neuroforaminal stenosis at L5-S1 bilaterally. Discs/Spinal canal/Neural foramina: See Vertebrae Finding. Soft tissues: Unremarkable. IMPRESSION: No acute bony pathology. Dictated and Authenticated by: Asia Allison MD. Ordering:YASMANY Roland MD
[2018-11-17 20:40] LABS: Bilirubin Negative (Negative); Blood Small (Negative); Clarity Clear; Glucose Negative (Negative); Ketones Negative (Negative); Leukocyte Esterase Negative (Negative); Nitrite Negative (Negative); Specific Gravity 1.015 (1.005-1.025); Urobilinogen 0.2 EU/dL (Up TO 0.2)
[2018-11-17 20:53] LABS: Bacteria Few HPF (Negative); C & S Indicated? No; Casts Negative LPF (Negative); Crystals Negative HPF (Negative); Epithelial Cells Rare HPF (Negative); Mucus Negative (Negative); Other Cells Negative (Negative); WBC Negative HPF (0-5)
[2018-11-17 20:53] LABS: *AMPHETAMINES SCREEN URINE Negative (Negative); *BARBITURATES SCREEN URINE Negative (Negative); *BENZODIAZEPINES SCREEN URINE POSITIVE (Negative); Cannabinoids THC POSITIVE (Negative); Cocaine Screen,Urine POSITIVE (Negative); METHADONE URINE SCREEN POSITIVE (Negative); OPIATES URINE SCREEN Negative (Negative)
[2018-11-17 21:07] LABS: Tricyclic Antidepressants Negative (Negative)
[2018-11-18] VITALS (17 sets, daily range): BP systolic 110–127; BP diastolic 59–80; PULSE 75–88; RESP 4–25; TEMP 37.2; O2SAT 87–100
[2018-11-18] MEDS: Albuterol/Ipratropium 3 ML UPD VIAL (00:34)
--- NOTE | 2018-11-18 00:41 | DI.RAD_ITS ---
SYMPTOM/DIAGNOSIS: KNOWN RIB FRACTURES, SOB, DECREASED O2 SATS, TRAUMA, PAIN AP AND LATERAL CHEST: Comparison is made with 05/06/18. The heart size is within normal limits. There is respiratory motion on both views, particularly the lateral view. The lungs are also not well inflated. No infiltrate, effusion or pulmonary edema is visible. IMPRESSION: Limited exam. No acute abnormality. RIGHT WRIST: There is a nondisplaced fracture through the distal radius extending obliquely toward the articular surface. There is no visible separation at the articular surface. The distal ulna appears intact. There is a question of a focal stepoff of the distal pole of the navicular which is likely artifactual. There are mild underlying degenerative changes. There is an old fifth metacarpal fracture. There is a smoothly marginated bony density seen dorsally on the lateral view over the carpal region. This may be related to old trauma. IMPRESSION: Nondisplaced distal radial fracture. Question of artifact versus nondisplaced fracture of the scaphoid.
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
[2018-11-18] MEDS: Lidocaine 5% Patch 1 PATCH TP (01:16)
[2018-11-18] MEDS: Normal Saline Flush 10 ML SYR IVP ×2 (01:16→02:00)
[2018-11-18] MEDS: Ketorolac 15 MG/ML VIAL IVP (01:16)
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
--- NOTE | 2018-11-18 01:42 | DI.VRAD_ITS ---
EXAM: XR Right Wrist Complete, 3 or more Views EXAM DATE/TIME: 11/18/2018 12:42 AM CLINICAL HISTORY: 53 years old, male; Pain; Wrist; Right; Patient HX: Hand pain and swelling. Injury/trauma TECHNIQUE: XR Right wrist 3 or more views. COMPARISON: No relevant prior studies available. FINDINGS: Bones/joints: Acute nondisplaced fracture, distal radial metaphysis. No intra-articular extension is appreciated radiographically. Old, healed fifth metacarpal fracture. Faint lucency along the scaphoid waist, question minimal cortical step-off, seen on a single view only. Minimal degenerative changes, first carpometacarpal joint. Soft tissues: Linear 5 mm calcification overlies the carpus on the lateral view. Medial and dorsal hand soft tissue swelling. Soft tissue swelling about the wrist. IMPRESSION: 1. Acute nondisplaced fracture, distal radial metaphysis. 2. Linear 5 mm calcification overlies the carpus on the lateral view. Could reflect a triquetral fracture acuity difficult to determine on this study. Attention on followup imaging given overlying soft tissue swelling. 3. Faint lucency along the scaphoid waist, question minimal cortical step-off, seen on a single view only. Recommend attention on followup imaging as to the possibility of an acute nondisplaced fracture. Dictated and Authenticated by: Asia Allison MD. Ordering:KAROLINE Garces MD
[2018-11-18] MEDS: Ondansetron 4 MG/2 ML VIAL (02:00)
== END 2018-11-18 02:44 | disposition home or self-care (01) ==
PROVIDERS: Student in an Organized Health Care Education/Training Program; Emergency Provider Emergency Medicine; PCP Nurse Practitioner Family
DX: R41.82 Altered mental status, unspecified (principal); S01.81XA Laceration without foreign body of other part of head, initial encounter; S52.501A Unspecified fracture of the lower end of right radius, initial encounter for closed fracture; S22.41XA Multiple fractures of ribs, right side, initial encounter for closed fracture; R11.0 Nausea; F11.220 Opioid dependence with intoxication, uncomplicated; F19.99 Other psychoactive substance use, unspecified with unspecified psychoactive substance-induced disorder; W10.8XXA Fall (on) (from) other stairs and steps, initial encounter; J44.9 Chronic obstructive pulmonary disease, unspecified; F17.210 Nicotine dependence, cigarettes, uncomplicated
CPT/HCPCS: 12013; 25600; 36415; 51701; 74177; 80053; 80307; 86850; 86900; 86901; 93005; 94640; 96374; 96375; 99285; 70450; 71046; 71260; 72125; 73110; 80320; 81003; 81015; 84484; 85025; 85610; 93010; J1885; J2405; J3490; J7620; L0172

== ENCOUNTER → 2018-12-02 09:18 | Outpatient (BNVA) | payer MEDICARE, SELFPAY | PROVIDERS: PCP Nurse Practitioner Family; Referring Provider Nurse Practitioner Family; Visit Provider Orthopaedic Surgery | DX: S52.501A Unspecified fracture of the lower end of right radius, initial encounter for closed fracture (principal); W10.8XXA Fall (on) (from) other stairs and steps, initial encounter; W17.89XA Other fall from one level to another, initial encounter | CPT/HCPCS: 99201; 99213 ==

== ENCOUNTER 2019-06-17 13:42 | Outpatient (REF) | payer OTHER, SELFPAY ==
[2019-06-17 19:05] LABS: Bilirubin Small (Negative); Blood Trace-intact (Negative); Clarity Clear (Clear); Glucose Negative (Negative); Ketones Trace mg/dL (Negative); Leukocyte Esterase Negative (Negative); Nitrite Negative (Negative); Specific Gravity >= 1.030 (1.005-1.025); Urobilinogen 0.2 EU/dL (Up TO 0.2); pH 5.5 (5-8)
[2019-06-17 19:15] LABS: Bacteria Few HPF (Negative); C & S Indicated? No; Casts Negative LPF (Negative); Crystals Few Amorphous HPF (Negative); Epithelial Cells Moderate HPF (Negative); Mucus Negative (Negative); WBC 0-2 HPF (0-5)
== END 2019-06-17 14:02 ==
LOC: NCHCN 13:42
PROVIDERS: PCP Nurse Practitioner Family; Visit Provider Nurse Practitioner Family
DX: R10.9 Unspecified abdominal pain (principal)
CPT/HCPCS: 81003; 81015

== ENCOUNTER 2019-06-22 00:15 | Outpatient (CLI) | payer OTHER, SELFPAY ==
--- NOTE | 2019-06-22 08:16 | DI.CT_ITS ---
SYMPTOM/DIAGNOSIS: LT FLANK PAIN R10.[address]: 06/22 CT examination of the abdomen and pelvis was performed without contrast administration. The visualized portions of the liver are unremarkable except for very subtle geographic decreased attenuation suggestive of hepatic steatosis. Spleen is unremarkable in appearance. Pancreas appears normal. Gallbladder and bile ducts are CT normal. Adrenals and kidneys are unremarkable in appearance. No urinary tract calcification or obstruction. Urinary bladder is essentially empty. Appendix has been surgically removed. No evidence of bowel obstruction. Abdominal aorta is of normal diameter. No abdominal or pelvic adenopathy. No significant abdominal wall hernia. CONCLUSION: Negative renal colic CT with incidental finding of suspected hepatic steatosis.
== END 2019-06-22 00:35 ==
PROVIDERS: PCP Nurse Practitioner Family; Visit Provider Nurse Practitioner Family
DX: R10.32 Left lower quadrant pain (principal); K76.0 Fatty (change of) liver, not elsewhere classified
CPT/HCPCS: 74176

== ENCOUNTER 2019-06-25 07:50 | Emergency (ER) | payer OTHER, SELFPAY ==
[2019-06-25] VITALS (46 sets, daily range): BP systolic 93–121; BP diastolic 55–79; PULSE 70–152; RESP 5–24; TEMP 37.4; O2SAT 90–97
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
[2019-06-25 08:46] LABS: Abs Immature Grans 0.05 k/cumm (0.0-0.09); Absolute Basophil Count 0.01 k/cumm (0.0-0.2); Absolute Eosinophil Count 0.01 k/cumm (0.0-0.7); Absolute Lymphocyte Count 1.12 k/cumm (1.2-3.4); Absolute Neutrophil Count 11.72 k/cumm (1.2-6.7); Basophils % 0.1; Eosinophils % 0.1; HCT 38.1 % (40.0-50.0); HGB 12.1 g/dL (13.5-17.5); Immature Grans % 0.4; Lymphocytes % 8.1; Mean Corp. HGB Concentration 31.8 g/dL (32.0-36.0); Mean Corpuscular Hemoglobin 24.9 pg (27.0-33.0); Mean Corpuscular Volume 78.6 fL (80-95); Mean Platelet Volume 9.3 fL (8.0-11.0); Monocytes % 6.5; Neutrophils % 84.8; Platelet Count 324 x1000/uL (130-400); RBC 4.85 m/cumm (4.50-6.00); RBC Distribution Width 16.1 % (11.8-14.1); White Blood Cell Count 13.82 k/cumm (4.4-10.8)
[2019-06-25] MEDS: Albuterol/Ipratropium 3 ML UPD VIAL UPD (08:51)
[2019-06-25 09:19] LABS: ALT 17 U/L (16-63); AST 13 U/L (15-37); Albumin 2.9 g/dL (3.4-5.0); Alkaline Phosphatase 83 U/L (46-116); Anion Gap 7.5 mmol/L (3-11); BUN 14 mg/dL (7-18); Bilirubin, Total 0.2 mg/dL (0.2-1.0); CO2 28.5 mmol/L (21.0-32.0); CREATININE 1.14 mg/dL (0.70-1.30); Calcium 8.8 mg/dL (8.5-10.1); Chloride 104 mmol/L (98-107); Glucose 121 mg/dL (70-100); Magnesium 1.7 mg/dL (1.8-2.4); NT-proBNP 337 pg/mL; Potassium 4.4 mmol/L (3.5-5.1); Sodium 140 mmol/L (136-145); Total Protein 6.9 g/dL (6.4-8.2)
[2019-06-25 09:29] LABS: Troponin I < 0.05 ng/mL (0.00-0.06)
--- NOTE | 2019-06-25 09:31 | DI.RAD_ITS ---
SYMPTOM/DIAGNOSIS: COUGH, SOB, CHEST PAIN, R/O PNEUMONIA , CHF PA AND LATERAL CHEST: Comparison is made with 18 Nov 2018. The heart size is normal. There are underlying fibrotic changes. There is a question of increased density in the right mid lung when compared with the previous exam. Thee is also questionable increased densities vs normal vessels seen on the lateral view. No effusions ae seen. The heart size is normal. IMPRESSION: Question of right upper lobe pneumonia.
[2019-06-25] MEDS: Normal Saline 500 ML IV ×2 (10:10→11:17)
[2019-06-25 10:26] LABS: *AMPHETAMINES SCREEN URINE Negative (Negative); *BARBITURATES SCREEN URINE Negative (Negative); *BENZODIAZEPINES SCREEN URINE Negative (Negative); Cannabinoids THC POSITIVE (Negative); Cocaine Screen,Urine Negative (Negative); METHADONE URINE SCREEN POSITIVE (Negative); OPIATES URINE SCREEN Negative (Negative)
[2019-06-25 10:27] LABS: Tricyclic Antidepressants Negative (Negative)
[2019-06-25 10:30] LABS: D-Dimer 496 ng/mlFEU (<500)
[2019-06-25 11:16] LABS: Lactate 1.8 mmol/L (0.6-1.4)
[2019-06-25] MEDS: cefTRIAXone 1 GM/50 ML BAG IVPB (11:16)
[2019-06-25] MEDS: methylPREDNISolone SUCC 125 MG VIAL IVP (11:53)
[2019-06-25] MEDS: DOXYCYCLINE 100 MG in Normal Saline 100 ML IVPB (11:53)
[2019-06-25] MEDS: Acetaminophen 500 MG TAB 1000 MG PO (11:54)
[2019-06-25] MEDS: Albuterol HFA 8 GM 60 PUFF INH IH (13:12)
== END 2019-06-25 13:23 | disposition home or self-care (01) ==
PROVIDERS: Emergency Provider Physician Assistant; PCP Nurse Practitioner Family
DX: J18.9 Pneumonia, unspecified organism (principal); R07.9 Chest pain, unspecified; J44.9 Chronic obstructive pulmonary disease, unspecified; F17.210 Nicotine dependence, cigarettes, uncomplicated
CPT/HCPCS: 36415; 80053; 80307; 87040; 93005; 94640; 96361; 96365; 96367; 96375; 99284; 71046; 83605; 83735; 83880; 84484; 85025; 85379; 93010; 99285; J0696; J2930; J7620

== ENCOUNTER 2019-10-18 09:59 | Emergency (ER) | payer OTHER, SELFPAY ==
[2019-10-18] VITALS (15 sets, daily range): BP systolic 101–130; BP diastolic 63–94; PULSE 59–77; RESP 14–24; TEMP 36.5; O2SAT 93–100
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
[2019-10-18] MEDS: Normal Saline 1,000 ML 1000 ML IV (10:39)
[2019-10-18] MEDS: Albuterol/Ipratropium 3 ML UPD VIAL UPD (10:46)
[2019-10-18 10:54] LABS: Abs Immature Grans 0.03 k/cumm (0.0-0.09); Absolute Basophil Count 0.05 k/cumm (0.0-0.2); Absolute Eosinophil Count 0.16 k/cumm (0.0-0.7); Absolute Lymphocyte Count 3.94 k/cumm (1.2-3.4); Absolute Monocyte Count 0.56 k/cumm (0.11-0.7); Absolute Neutrophil Count 3.06 k/cumm (1.2-6.7); Basophils % 0.6; Eosinophils % 2.1; HCT 36.5 % (40.0-50.0); HGB 11.3 g/dL (13.5-17.5); Immature Grans % 0.4 %; Lymphocytes % 50.5; Mean Corpuscular Hemoglobin 24.7 pg (27.0-33.0); Mean Corpuscular Volume 79.7 fL (80-95); Mean Platelet Volume 9.4 fL (8.0-11.0); Monocytes % 7.2; Neutrophils % 39.2; Platelet Count 363 x1000/uL (130-400); RBC 4.58 m/cumm (4.50-6.00); RBC Distribution Width 16.1 % (11.8-14.1)
[2019-10-18 10:54] LABS: Bilirubin Negative (Negative); Blood Trace-intact (Negative); Clarity Clear (Clear); Glucose Negative (Negative); Ketones Negative (Negative); Leukocyte Esterase Negative (Negative); Nitrite Negative (Negative); Specific Gravity 1.025 (1.005-1.025); Urobilinogen 0.2 EU/dL (Up TO 0.2); pH 7.5 (5-8)
[2019-10-18 11:09] LABS: Bacteria Negative HPF (Negative); Crystals Negative HPF (Negative); Epithelial Cells Few HPF (Negative); Mucus Trace (Negative); WBC 0-2 HPF (0-5)
[2019-10-18 11:09] LABS: Prothrombin Time 9.8 sec (9.3-11.0)
[2019-10-18 11:10] LABS: C & S Indicated? No; Casts Negative LPF (Negative)
[2019-10-18 11:19] LABS: ALT 28 U/L (16-63); AST 23 U/L (15-37); Alkaline Phosphatase 109 U/L (46-116); BUN 11 mg/dL (7-18); Bilirubin, Total 0.1 mg/dL (0.2-1.0); Calcium 8.8 mg/dL (8.5-10.1); Chloride 104 mmol/L (98-107); Glucose 100 mg/dL (74-106); Magnesium 2.2 mg/dL (1.8-2.4); Potassium 4.9 mmol/L (3.5-5.1); Sodium 140 mmol/L (136-145); Total Protein 6.8 g/dL (6.4-8.2)
== END 2019-10-18 11:19 | disposition left against medical advice (07) ==
PROVIDERS: Emergency Provider Student in an Organized Health Care Education/Training Program; PCP Nurse Practitioner Family
DX: K92.0 Hematemesis (principal); K92.1 Melena; M79.604 Pain in right leg; M79.605 Pain in left leg; Z53.29 Procedure and treatment not carried out because of patient's decision for other reasons; J44.9 Chronic obstructive pulmonary disease, unspecified; F17.210 Nicotine dependence, cigarettes, uncomplicated
CPT/HCPCS: 36415; 80053; 93005; 94640; 96360; 99284; 81003; 81015; 83735; 85025; 85610; 93010; J7620

== ENCOUNTER → 2019-10-27 09:38 | Outpatient (BNVA) | payer OTHER, SELFPAY | PROVIDERS: PCP Nurse Practitioner Family; Referring Provider Nurse Practitioner Family; Visit Provider Surgery | DX: K62.5 Hemorrhage of anus and rectum (principal); D64.9 Anemia, unspecified; F17.210 Nicotine dependence, cigarettes, uncomplicated | CPT/HCPCS: 99202; 99213 ==

== ENCOUNTER 2020-04-26 16:35 | Emergency (ER) | payer OTHER, SELFPAY ==
[2020-04-26] VITALS (20 sets, daily range): BP systolic 94–102; BP diastolic 44–72; PULSE 61–73; RESP 8–24; TEMP 36.6; O2SAT 89–99
--- NOTE | 2020-04-26 16:45 | DI.RAD_ITS ---
EXAM: XR PORTABLE CHEST AP CLINICAL HISTORY: cough, sob, r/o acute disease TECHNIQUE: COMPARISON: CT CT CHEST/ABD/PEL W from 11/17/2018 CR XR CHEST 2V PA LATERAL from 11/18/2018 CR XR CHEST 2V PA LATERAL from 06/25/2019 FINDINGS: Heart is not enlarged. Lungs are clear. Question slight pulmonary interstitial prominence, nonspeci fic. No pleural effusion seen. IMPRESSION: Mild interstitial prominence, nonspecific, no evidence of focal consolidation.
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
--- NOTE | 2020-04-26 17:30 | RT.EKG_ITS ---
APPROVED REPORT Exam: Resting ECG Patient Location: E HR:62 bpm ECG Measurements Heart Rate 62 AXIS WA 147 P 16 QRSd 93 QRS 26 QT 464 T 21 QTc 472 <Conclusion> Sinus rhythm...normal P axis, V-rate 60- [address] elevation or depression.
--- NOTE | 2020-04-26 17:43 | DI.VRAD_ITS ---
PROCEDURE INFORMATION: Exam: XR Chest, 1 View Exam date and time: 04/26/2020 5:33 PM Age: 54 years old Clinical indication: Other: Cough, SOB, R/O acute disease TECHNIQUE: Imaging protocol: XR of the chest Views: 1 view. COMPARISON: CR XR CHEST 2V PA LATERAL 06/25/2019 9:27 AM FINDINGS: Lungs: Increased interstitial lung markings suggesting edema, infection or fibrotic changes. Pleural space: Unremarkable. No pleural effusion. No pneumothorax. Heart/Mediastinum: Unremarkable. No cardiomegaly. Bones/joints: Degenerative changes in the spine. IMPRESSION: Increased interstitial lung markings suggesting edema, infection or fibrotic changes. Dictated and Authenticated by: Domenic Peace MD. Ordering:JACK Acosta MD
[2020-04-26] MEDS: predniSONE 20 MG TAB 60 MG PO (17:46)
[2020-04-26] MEDS: Albuterol/Ipratropium 3 ML UPD VIAL UPD (17:46)
[2020-04-26] MEDS: Albuterol HFA 8 GM 60 PUFF INH IH (18:38)
--- NOTE | 2020-04-27 08:56 | PDOC.ERCMACT ---
- If Service Date Differs Date of service: 04/27/20 Time of Service: 08:56 Care Management Activity Note Kaushal was seen in the ED last evening for bronchitis and returned home via RCT upon discharge. This morning, CM completed and faxed transportation authorization form to [facility].
== END 2020-04-26 19:07 | disposition home or self-care (01) ==
PROVIDERS: Emergency Provider Physician Assistant; PCP Nurse Practitioner Family
DX: J44.0 Chronic obstructive pulmonary disease with (acute) lower respiratory infection (principal); J20.9 Acute bronchitis, unspecified; R09.02 Hypoxemia; F17.210 Nicotine dependence, cigarettes, uncomplicated
CPT/HCPCS: 93005; 94640; 99285; 71045; 93010; J7512; J7620

== ENCOUNTER 2020-04-26 21:02 | Outpatient (REF) | payer OTHER, SELFPAY ==
[2020-05-03 19:59] LABS: SARS-CoV-2 RNA Undetected (Undetected); SARS-CoV-2 Specimen Source Nasopharynx
== END 2020-04-26 21:22 ==
LOC: NCHCN 21:02
PROVIDERS: PCP Nurse Practitioner Family; Visit Provider Nurse Practitioner Family
DX: R05 Cough (principal)
CPT/HCPCS: U0003

== ENCOUNTER 2020-10-18 18:49 | Outpatient (REF) | payer OTHER, SELFPAY ==
[2020-10-20 15:56] LABS: COVID-19 RT-PCR UVMMC Result Negative (Negative)
== END 2020-10-18 19:09 ==
LOC: NCHCN 18:49
PROVIDERS: PCP Nurse Practitioner Family; Visit Provider Physician Assistant
DX: Z20.828 Contact with and (suspected) exposure to other viral communicable diseases (principal)
CPT/HCPCS: U0003

== ENCOUNTER 2020-12-07 18:51 | Outpatient (CLI) | payer OTHER, SELFPAY | END 2020-12-07 19:11 | PROVIDERS: PCP Nurse Practitioner Family; Visit Provider Nurse Practitioner Family | DX: R69 Illness, unspecified (principal) ==

== ENCOUNTER 2020-12-07 19:16 | Outpatient (REF) | payer OTHER, SELFPAY ==
[2020-12-07 13:40] LABS: Abs Immature Grans 0.08 10^3/uL (0.0-0.06); Absolute Basophil Count 0.06 10^3/uL (0.0-0.2); Absolute Eosinophil Count 0.17 10^3/uL (0.0-0.7); Absolute Lymphocyte Count 3.47 10^3/uL (1.2-3.4); Absolute Monocyte Count 0.56 10^3/uL (0.1-0.8); Absolute Neutrophil Count 2.58 10^3/uL (1.2-6.7); Basophils % 0.9; Eosinophils % 2.5; HCT 37.6 % (40.0-50.0); HGB 11.7 g/dL (13.5-17.5); Immature Grans % 1.2; Lymphocytes % 50.1; MCH 24.6 pg (27.0-33.0); MCHC 31.1 % (32.0-36.0); MPV 9.5 fL (8.0-11.0); Monocytes % 8.1; Neutrophils % 37.2; Nucleated RBC 0 %; Platelet Count 327 10^3/uL (130-400); RBC 4.76 10^6/uL (4.36-5.78); RDW 16.1 % (11.8-14.1); RDW-SD 46.3 fL; WBC 6.92 10^3/uL (4.4-10.8)
[2020-12-07 14:26] LABS: VALPROIC ACID 33.3 ug/mL (50-100)
[2020-12-08 14:50] LABS: COVID-19 RT-PCR UVMMC Result Negative (Negative)
== END 2020-12-07 19:17 | disposition home or self-care (01) ==
LOC: NCHCN 19:16
PROVIDERS: PCP Nurse Practitioner Family; Visit Provider Nurse Practitioner Family
DX: D64.9 Anemia, unspecified (principal); R56.9 Unspecified convulsions; Z51.81 Encounter for therapeutic drug level monitoring; J06.9 Acute upper respiratory infection, unspecified; Z20.822 Contact with and (suspected) exposure to COVID-19
CPT/HCPCS: U0003; 80164; 85025

== ENCOUNTER 2021-01-12 21:42 | Observation (INO) | payer OTHER, SELFPAY ==
[2021-01-12] VITALS (13 sets, daily range): BP systolic 101–126; BP diastolic 60–79; PULSE 72–103; RESP 17–22; TEMP 36.2–36.4; O2SAT 95–98
--- NOTE | 2021-01-12 21:30 | DI.CT_ITS ---
EXAM: CT HEAD WO CLINICAL HISTORY: Seizure. TECHNIQUE: Imaging Protocol: Axial computed tomography images with coronal and sagittal reformatted images were created and reviewed COMPARISON: CT CT HEAD CERVICAL SPINE WO from 11/17/2018 FINDINGS: The ventricular system is normal in appearance. No evidence of acute intracranial hemorrhage, mass effect, or midline shift. The orbital structures are unremarkable. The temporal bone structures appear intact. Calvarium: Normal. Visualized Paranasal sinuses/Mastoids: Clear. IMPRESSION: Normal cranial CT. RADIATION DOSE DELIVERED: 879.42mGy.cm Total DLP 879.42mGy.cm Total DLP DATA REPOSITORY: All CT scans at this facility are submitted to the National Radiology Data Registry (NRDR) Dose Index Registry (DIR) with the [employer] ([employer]). RADIATION OPTIMIZATION: All CT scans at this facility use at least one of these dose optimization te chniques: automated exposure control; mA and/or kV adjustment per patient size (includes targeted exa ms where dose is matched to clinical indication); or iterative reconstruction.
--- NOTE | 2021-01-12 21:30 | RT.EKG_ITS ---
APPROVED REPORT Exam: Resting ECG Patient Location: E HR:96 bpm ECG Measurements Heart Rate 96 AXIS AK 117 P 33 QRSd 107 QRS 61 QT 394 T 51 QTc 499 Conclusion Sinus rhythm...normal P axis, V-rate 60- 99 Probable anterolateral infarct, old...Q>35mS, abnrm ST-T, V2-V6,I,aVL 2mm ST depression in V3. 1mm ST depression in V2-V4. No STEMI. I have reviewed and interpreted ECG and agree with software generated interpretation.
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
[2021-01-12 22:03] LABS: Abs Immature Grans 0.06 10^3/uL (0.0-0.06); Absolute Basophil Count 0.09 10^3/uL (0.0-0.2); Absolute Lymphocyte Count 4.49 10^3/uL (1.2-3.4); Absolute Monocyte Count 0.92 10^3/uL (0.1-0.8); Basophils % 0.7; Eosinophils % 0.2; HCT 41.4 % (40.0-50.0); HGB 12.5 g/dL (13.5-17.5); Immature Grans % 0.5; Lymphocytes % 36.1; MCH 25.2 pg (27.0-33.0); MCHC 30.2 % (32.0-36.0); MCV 83.3 fL (80-95); MPV 9.2 fL (8.0-11.0); Monocytes % 7.4; Neutrophils % 55.1; Nucleated RBC 0 %; Platelet Count 368 10^3/uL (130-400); RBC 4.97 10^6/uL (4.36-5.78); RDW 16.2 % (11.8-14.1); RDW-SD 49.3 fL; WBC 12.43 10^3/uL (4.4-10.8)
[2021-01-12 22:04] LABS: Absolute Eosinophil Count 0.02 10^3/uL (0.0-0.7); Absolute Neutrophil Count 6.85 10^3/uL (1.2-6.7)
[2021-01-12 22:16] LABS: VALPROIC ACID 46.9 ug/mL (50-100)
--- NOTE | 2021-01-12 22:21 | DI.RAD_ITS ---
EXAM: XR CHEST 1V IN DI DEPT CLINICAL HISTORY: Seizure SOB. TECHNIQUE: 2D digital imaging was performed. COMPARISON: CR,XR XR PORTABLE CHEST AP from 04/26/2020 FINDINGS: LUNGS: Clear. No pleural abnormality seen. HEART: Normal. MEDIASTINUM: Normal. OTHER FINDINGS: None. IMPRESSION: No acute pulmonary findings. DATA REPOSITORY: RADIATION DOSE DELIVERED: Total DLP
[2021-01-12 22:24] LABS: ALT 29 U/L (16-63); AST 30 U/L (15-37); Albumin 3.5 g/dL (3.4-5.0); Alkaline Phosphatase 94 U/L (46-116); Anion Gap 26.5 mmol/L (3-11); BUN 10 mg/dL (7-18); Bilirubin, Total 0.3 mg/dL (0.2-1.0); CO2 13.5 mmol/L (21.0-32.0); CREATININE 1.7 mg/dL (0.70-1.30); Chloride 99 mmol/L (98-107); Estimated GFR 42.21 (mL/min/1.73m2); Glucose 232 mg/dL (74-106); Magnesium 2.3 mg/dL (1.8-2.4); Sodium 139 mmol/L (136-145); Total Protein 7.8 g/dL (6.4-8.2)
[2021-01-12 22:25] LABS: Potassium 3.8 mmol/L (3.5-5.1)
--- NOTE | 2021-01-12 22:38 | DI.VRAD_ITS ---
PROCEDURE INFORMATION: Exam: XR Chest Exam date and time: 01/12/2021 10:19 PM Age: 55 years old Clinical indication: Shortness of breath; Patient HX: Patient unable to follow breathing instruction due to tbi. TECHNIQUE: Imaging protocol: XR of the chest Views: 1 view. COMPARISON: CR XR PORTABLE CHEST AP 04/26/2020 5:26 PM FINDINGS: Lungs: Lung volumes are mildly decreased. No focal consolidation or pulmonary edema. Pleural spaces: No pleural effusion. No pneumothorax. Heart/Mediastinum: Cardiomediastinal contours within normal limits. Diaphragm: Mild asymmetric elevation of the right hemidiaphragm. Bones/joints: No acute osseous finding. Degenerative changes of the left glenohumeral interval are present. IMPRESSION: No acute cardiopulmonary finding. Dictated and Authenticated by: Abhijit Munoz MD. Ordering:KIMBERLEE Polk MD
[2021-01-12 22:44] LABS: Source Nasal/Nares
[2021-01-12 22:45] LABS: Bilirubin Negative (Negative); Blood Moderate (Negative); Clarity Clear (Clear); Glucose Negative (Negative); Ketones 15 mg/dL (Negative); Leukocyte Esterase Negative (Negative); Nitrite Negative (Negative); Specific Gravity 1.025 (1.005-1.025); Urobilinogen 0.2 EU/dL (Up TO 0.2); pH 5.5 (5-8)
--- NOTE | 2021-01-12 22:47 | DI.VRAD_ITS ---
PROCEDURE INFORMATION: Exam: CT Head Without Contrast Exam date and time: 01/12/2021 9:45 PM Age: 55 years old Clinical indication: Patient HX: Tbi 1994, HX of seizure. No recent injury. TECHNIQUE: Imaging protocol: Computed tomography of the head without contrast. Radiation optimization: All CT scans at this facility use at least one of these dose optimization techniques: automated exposure control; mA and/or kV adjustment per patient size (includes targeted exams where dose is matched to clinical indication); or iterative reconstruction. COMPARISON: CT HEAD CERVICAL SPINE WO 11/17/2018 6:56 PM FINDINGS: Brain: There is mild age related parenchymal atrophy with prominence of the cortical sulci. Periventricular and deep white matter hypodensities are consistent with sequela of chronic microvascular ischemic disease. No midline shift or herniation. No acute intracranial hemorrhage. Cerebral ventricles: No ventriculomegaly. Bones/joints: Irregularity of the nasal bone suspicious for old fracture. No acute osseous finding. Paranasal sinuses: Visualized sinuses are unremarkable. No fluid levels. Mastoid air cells: No mastoid effusion. Soft tissues: No focal soft tissue abnormality. IMPRESSION: No acute intracranial finding. Dictated and Authenticated by: Abhijit Munoz MD. Ordering:KIMBERLEE Polk MD
[2021-01-12 22:50] LABS: Lipase 102 U/L (73-393)
[2021-01-12 22:54] LABS: Bacteria Rare HPF (Negative); C & S Indicated? No; Casts Negative LPF (Negative); Crystals Negative HPF (Negative); Epithelial Cells Few HPF (Negative); Mucus Negative (Negative); WBC 0-2 HPF (0-5)
[2021-01-12 23:00] LABS: *AMPHETAMINES SCREEN URINE Negative (Negative); *BARBITURATES SCREEN URINE Negative (Negative); *BENZODIAZEPINES SCREEN URINE Positive (Negative); Cannabinoids THC Positive (Negative); Cocaine Screen,Urine Positive (Negative); METHADONE URINE SCREEN Positive (Negative); OPIATES URINE SCREEN Negative (Negative)
[2021-01-12 23:01] LABS: Tricyclic Antidepressants Negative (Negative)
[2021-01-12] MEDS: Normal Saline 50 ML (23:09)
[2021-01-12 23:30] LABS: Troponin I < 0.05 ng/mL (<0.06)
[2021-01-13 00:08] VITALS: BP 130/83; PULSE 76; RESP 20; TEMP 36.8; O2SAT 98
[2021-01-13] MEDS: Normal Saline 1,000 ML 150 ML IV (00:08)
[2021-01-13] MEDS: Trimethobenzamide 200 MG/2 ML VIAL IM (01:21)
[2021-01-13 01:30] VITALS: BP 160/93; PULSE 87; RESP 20; TEMP 37.6; O2SAT 99
[2021-01-13 01:36] VITALS: TEMP 37.6
[2021-01-13] MEDS: Acetaminophen 325 MG TAB PO (01:36)
[2021-01-13] MEDS: diphenhydrAMINE 25 MG CAP 50 MG PO (02:40)
[2021-01-13 03:09] LABS: Troponin I 0.05 ng/mL (<0.06)
--- NOTE | 2021-01-13 04:58 | NUR.NOTE ---
Pt is a little agitated at this time and wants his methadone. States Now that I'm with it and know whats going on, I want my methadone. PT then stated that he was going to leave. I did help de escalate his agitation with reassurance of why he was here and that we are trying to help him. PT now laying in bed and calmed down. RAJWINDER ZIMMER Nursing Note:
--- NOTE | 2021-01-13 05:52 | NUR.NOTE ---
At 0540 Patient was very restless and said he wanted to sit in chair. Nursing Note:
--- NOTE | 2021-01-13 06:36 | NUR.NOTE ---
Nursing Note: At 0620 hrs. patient increasingly agitated, threatening that he will take off his IV, MANAGER UTILIZATION REVIEW notified the appeals writer and upon discussion with patient he was asking me about the benzoids in his lab result and I confirmed that it is positive on those results.To my knowledge, the patient was already informed that he was already given diazepam in the ambulance. Patient accusing me that I was the one who informed him of diazepam administration. Whatever told by patient was being heard by other RN in his room. I denied the accusations from the patient since I don't have even access to the EMS notes up to this time. Patient was telling me that I was a liar and being aggressive as he tried to rip out his IV as I was trying to explain the labs as they appeared in his chart. When I did his admission, most of the answers I got from patient was I don't know. and patient was so confused and being restless on bed, for that reason cadre was provided for safety.The appeals writer notified charge nurse of the situation that patient is ready to go home against medical advice. The IV stopped per patient's request and saline lock was removed by other RN.
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
[2021-01-13 10:47] LABS: COVID-19 PCR Negative (Negative)
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
== END 2021-01-13 07:25 | disposition left against medical advice (07) ==
LOC: ER 23:01 → MS 23:54
PROVIDERS: Admitting Provider Internal Medicine; Emergency Provider Registered Nurse Emergency; PCP Nurse Practitioner Family; Visit Provider Internal Medicine
DX: G40.109 Localization-related (focal) (partial) symptomatic epilepsy and epileptic syndromes with simple partial seizures, not intractable, without status epilepticus (principal); Z87.820 Personal history of traumatic brain injury; F43.10 Post-traumatic stress disorder, unspecified; K21.9 Gastro-esophageal reflux disease without esophagitis; J44.9 Chronic obstructive pulmonary disease, unspecified; D64.9 Anemia, unspecified; K59.00 Constipation, unspecified; F17.210 Nicotine dependence, cigarettes, uncomplicated; F13.11 Sedative, hypnotic or anxiolytic abuse, in remission; F11.20 Opioid dependence, uncomplicated; Z79.899 Other long term (current) drug therapy
CPT/HCPCS: 36415; 36416; 80048; 80053; 80307; 82962; 83690; 87635; 93005; 96365; 99285; NC; 70450; 71045; 80164; 81003; 81015; 83605; 83735; 84484; 85025; 93010; G0378

== ENCOUNTER 2021-06-22 20:30 | Outpatient (REF) | payer OTHER, SELFPAY ==
[2021-06-24 13:14] LABS: COVID-19 RT-PCR UVMMC Result Negative (Negative)
[2021-06-25 14:06] LABS: Chlamydia Result Negative (Negative); GC Result Negative (Negative)
== END 2021-06-22 20:31 | disposition home or self-care (01) ==
LOC: LBN 20:30
PROVIDERS: PCP Nurse Practitioner Family; Visit Provider Physician Assistant Medical
DX: Z20.2 Contact with and (suspected) exposure to infections with a predominantly sexual mode of transmission (principal); Z20.822 Contact with and (suspected) exposure to COVID-19; J06.9 Acute upper respiratory infection, unspecified
CPT/HCPCS: 87491; 87591; U0003

== ENCOUNTER 2021-09-17 22:53 | Outpatient (REF) | payer OTHER, SELFPAY ==
[2021-09-19 17:19] LABS: COVID-19 RT-PCR UVMMC Result Negative (Negative)
== END 2021-09-17 22:54 | disposition home or self-care (01) ==
LOC: LBN 22:53
PROVIDERS: PCP Nurse Practitioner Family; Visit Provider Nurse Practitioner Family
DX: Z20.822 Contact with and (suspected) exposure to COVID-19 (principal); R05.8 Other specified cough
CPT/HCPCS: U0003

== ENCOUNTER 2021-11-16 15:55 | Outpatient (REF) | payer MEDICARE, SELFPAY ==
[2021-11-16 15:34] LABS: HCT 34.1 % (40.0-50.0); MCHC 29.3 % (32.0-36.0); MCV 78.4 fL (80-95); MPV 9.7 fL (8.0-11.0); Platelet Count 390 10^3/uL (130-400); RBC 4.35 10^6/uL (4.36-5.78); RDW-SD 45.5 fL; WBC 7.51 10^3/uL (4.4-10.8)
[2021-11-16 15:57] LABS: ALT 18 U/L (16-63); AST 14 U/L (15-37); Albumin 2.7 g/dL (3.4-5.0); Alkaline Phosphatase 93 U/L (46-116); Anion Gap 7.1 mmol/L (3-11); BUN 15 mg/dL (7-18); Bilirubin, Total 0.1 mg/dL (0.2-1.0); CO2 29.9 mmol/L (21.0-32.0); CREATININE 0.9 mg/dL (0.70-1.30); Calcium 9.3 mg/dL (8.5-10.1); Chloride 103 mmol/L (98-107); Glucose 86 mg/dL (74-106); Potassium 4.9 mmol/L (3.5-5.1); Sodium 140 mmol/L (136-145); Total Protein 6.7 g/dL (6.4-8.2)
[2021-11-16 16:00] LABS: VALPROIC ACID 19.7 ug/mL
[2021-11-16 16:07] LABS: Hemoglobin A1C 6.8 % (<5.7)
== END 2021-11-16 15:56 | disposition home or self-care (01) ==
LOC: NCHCN 15:55
PROVIDERS: PCP Nurse Practitioner Family; Visit Provider Nurse Practitioner Family
DX: D64.9 Anemia, unspecified (principal); R56.9 Unspecified convulsions; Z00.00 Encounter for general adult medical examination without abnormal findings; Z13.220 Encounter for screening for lipoid disorders; E11.9 Type 2 diabetes mellitus without complications
CPT/HCPCS: 80053; 85027; 80164; 83036; 84443

== ENCOUNTER 2022-05-16 15:11 | Outpatient (REF) | payer MEDICARE, SELFPAY ==
[2022-05-16 15:49] LABS: HCT 36.7 % (40.0-50.0); HGB 11.2 g/dL (13.5-17.5); MCH 23.5 pg (27.0-33.0); MCHC 30.5 % (32.0-36.0); MCV 77 fL (80-95); MPV 9.5 fL (8.0-11.0); Platelet Count 375 10^3/uL (130-400); RBC 4.77 10^6/uL (4.36-5.78); RDW 17.9 % (11.8-14.1); RDW-SD 49.9 fL; WBC 8.22 10^3/uL (4.4-10.8)
[2022-05-16 16:09] LABS: ALT 16 U/L (16-63); AST 24 U/L (15-37); Albumin 3.2 g/dL (3.4-5.0); Alkaline Phosphatase 86 U/L (46-116); BUN 16 mg/dL (7-18); Bilirubin, Total 0.1 mg/dL (0.2-1.0); CREATININE 1.5 mg/dL (0.70-1.30); Calcium 8.8 mg/dL (8.5-10.1); Chloride 98 mmol/L (98-107); Estimated GFR 48.59 (mL/min/1.73m2); Ferritin 11 ng/mL (26-388); Glucose 136 mg/dL (74-106); Sodium 136 mmol/L (136-145); Total Protein 7.4 g/dL (6.4-8.2)
[2022-05-16 16:39] LABS: Iron 33 ug/dL (65-175); Total Iron Binding Capacity 522 ug/dL (250-450); Transferrin Sat 6 % (20-55)
== END 2022-05-16 15:12 | disposition home or self-care (01) ==
LOC: NCHCN 15:11
PROVIDERS: PCP Nurse Practitioner Family; Visit Provider Nurse Practitioner Family
DX: D64.9 Anemia, unspecified (principal); E11.9 Type 2 diabetes mellitus without complications; M54.89 Other dorsalgia; R82.998 Other abnormal findings in urine
CPT/HCPCS: 80053; 85027; 82728; 83540; 83550; 87086

== ENCOUNTER 2022-05-24 18:56 | Outpatient (REF) | payer MEDICARE, SELFPAY | END 2022-05-24 18:57 | disposition home or self-care (01) | LOC: LBN 18:56 | PROVIDERS: PCP Nurse Practitioner Family; Visit Provider Physician Assistant | DX: R10.9 Unspecified abdominal pain (principal) | CPT/HCPCS: 87086 ==

== ENCOUNTER 2022-08-14 14:51 | Outpatient (REF) | payer MEDICARE, SELFPAY ==
[2022-08-14 15:28] LABS: VALPROIC ACID 86.8 ug/mL
== END 2022-08-14 14:52 | disposition home or self-care (01) ==
LOC: NCHCN 14:51
PROVIDERS: PCP Nurse Practitioner Family; Visit Provider Nurse Practitioner Family
DX: R56.9 Unspecified convulsions (principal)
CPT/HCPCS: 80164

== ENCOUNTER → 2022-09-27 09:14 | Outpatient (BNVA) | payer MEDICARE, SELFPAY | PROVIDERS: PCP Nurse Practitioner Family; Referring Provider Nurse Practitioner Family; Visit Provider Surgery | DX: Z12.11 Encounter for screening for malignant neoplasm of colon (principal); F43.10 Post-traumatic stress disorder, unspecified; K21.9 Gastro-esophageal reflux disease without esophagitis; D64.9 Anemia, unspecified; K62.5 Hemorrhage of anus and rectum | CPT/HCPCS: 36415; 99213 ==

== ENCOUNTER 2022-09-27 10:11 | Outpatient (REF) | payer MEDICARE, SELFPAY ==
[2022-09-27 10:51] LABS: Abs Immature Grans 0.04 10^3/uL (0.0-0.06); Absolute Basophil Count 0.07 10^3/uL (0.0-0.2); Absolute Eosinophil Count 0.12 10^3/uL (0.0-0.7); Absolute Lymphocyte Count 3.38 10^3/uL (1.2-3.4); Absolute Monocyte Count 0.58 10^3/uL (0.1-0.8); Absolute Neutrophil Count 3.89 10^3/uL (1.2-6.7); Basophils % 0.9; Eosinophils % 1.5; HCT 34.8 % (40.0-50.0); HGB 11.1 g/dL (13.5-17.5); Immature Grans % 0.5; Lymphocytes % 41.8; MCH 25.6 pg (27.0-33.0); MCHC 31.9 % (32.0-36.0); MCV 80 fL (80-95); MPV 9.7 fL (8.0-11.0); Monocytes % 7.2; Neutrophils % 48.1; Platelet Count 208 10^3/uL (130-400); RBC 4.34 10^6/uL (4.36-5.78); RDW 15.4 % (11.8-14.1); RDW-SD 45.1 fL; WBC 8.08 10^3/uL (4.4-10.8)
[2022-09-27 11:36] LABS: Ferritin 35 ng/mL (26-388); Folate 7.5 ng/mL (8.6-20.0); Vitamin B12 616 pg/mL (193-986)
[2022-09-27 12:02] LABS: Iron 73 ug/dL (65-175); Total Iron Binding Capacity 368 ug/dL (250-450); Transferrin Sat 20 % (20-55)
== END 2022-09-27 10:12 | disposition home or self-care (01) ==
LOC: LBN 10:11
PROVIDERS: PCP Nurse Practitioner Family; Visit Provider Surgery
DX: D64.9 Anemia, unspecified (principal); E11.9 Type 2 diabetes mellitus without complications; K62.5 Hemorrhage of anus and rectum; F11.20 Opioid dependence, uncomplicated; F95.8 Other tic disorders; Z79.899 Other long term (current) drug therapy
CPT/HCPCS: 82607; 82728; 82746; 83540; 83550; 85025

== ENCOUNTER 2022-10-09 08:09 | Day surgery (SDC) | payer MEDICARE, SELFPAY ==
[2022-10-09 08:23] VITALS: BP 134/81; PULSE 69; RESP 16; TEMP 36.2; O2SAT 96
[2022-10-09] MEDS: Lactated Ringers 1,000 ML 80 ML IV (08:46)
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
[2022-10-09 10:10] VITALS: BMI 33.0
--- NOTE | 2022-10-09 10:43 | BOWEL_PTH ---
PATIENT: Kaushal Malcolm LOC: [facility] U#:[id number] AGE/SX: 57/M ROOM: RE10/09/[address]: Senthil Abrams : 1965 BED: DIS: 10/09/2022 SPEC #: [id number] RECD: 10/09/22 14:36 STATUS: ASHLEY RE #: [id number] HERB: 10/09/22 10:[address]: Senthil Abrams DEPT: Surgical Specimen RECD BY: Anjana Beckham ENTERED: 10/09/22 14:39 SP TYPE: Bowel OTHR DR: Elsie Barrios Tissues: 1 - STOMACH BIOPSY 2 - STOMACH BIOPSY 3 - BIOPSY BOWEL Procedures: GROSS AND MICRO LEVEL 4 Comments: [id number]
--- NOTE | 2022-10-09 11:08 | W.COLOREPORT ---
Date of service: 10/09/22 Time of Service: 11:08 Colonoscopy Report Procedure Description: Procedures performed: 1. Colonoscopy with snare polypectomy x1 Preoperative diagnosis: Anemia Postoperative diagnosis: Colon polyps, Poor Prep Surgeon: Kenyon Abrams Anesthesia: Claritza Indication for procedure: Patient is a 57 yo man with no reported symptoms who has chronic anemia (10-11 range over 3+ years) without explanation. No family history of CR cancer. No prior colonoscopy. FINDINGS: Poor prep - presumably secondary to chronic Methadone use. Was able to reach cecum and thus tumors and large(2+ cm) polyps are essentially ruled out. Small and medium polyps could have been missed and mucosal inflammation could also have been missed in the majority of the exam. A 3 to 5 mm sessile polyp was removed from the sigmoid colon with hot snare technique.? No diverticular or hemorrhoidal disease appreciated. Surveillance/follow-up recommendations: A repeat colonoscopy should be performed with an extended prep. All future colonoscopies should have an extended prep. Complications: None Blood loss: Minimal Prep: Quite Poor - needs extended prep next time. Specimens: YES Procedure in detail: Written consent was obtained from the patient who was in agreement with the risks, benefits and indications of the procedure.? He was turned from upper endoscopy (see separate procedure note) and kept in the same left lateral position and anesthesia was continued. Digital rectal exam and visual examination was performed and within normal limits.? A well?lubricated colonoscope was advanced without difficulty all the way to the cecum identified by the ileocecal valve, and triangular folds and appendiceal orifice.? The prep was poor which significantly impaired the quality and meaningful results of this exam. The scope was then slowly withdrawn.?? Retroflexion was performed in the rectum.? The findings/interventions are noted above. The scope was then removed and the patient tolerated the procedure well and was then taken back to the PACU in hemodynamically stable condition.
[2022-10-09 11:14] VITALS: BP 143/96; PULSE 56; RESP 16; TEMP 36.1; O2SAT 98
--- NOTE | 2022-10-09 11:16 | W.PM.ENDDOP ---
Date of service: 10/09/22 Time of Service: 11:16 Endoscopy Report PROCEDURE DESCRIPTION: Procedures performed: 1.? Esophagogastroduodenoscopy with cold forceps biopsies Preoperative diagnosis: Anemia Postoperative diagnosis: Small(1-2cm) type I sliding hiatal hernia, Chronic Gastritis or Gastropathy Surgeon: Kenyon Abrams Anesthesia: Claritza Indication for procedure: 57 yo man on chronic Methadone has chronic epigastric discomfort and chronic anemia without explanation. Findings: - D3, D2 and D1 - normal - no inflammation or ulcers - Pylorus - patent. No bile reflux visualized during procedure. - Antrum - looks mildly inflamed and with chronic appeance - biopsies taken to rule out incidental H. pylori - Stomach Body - chronic gastritis/gastropathy appearance. Biopsies taken to confirm. - Fundus - Normal.? No polyps. - Hiatus - Retroflexion showed a small type I sliding hiatal hernia (1-2 cm slide) - Esophagus - distal esophagus does not look inflamed at al despite small hernia. No stricture or evidence of Escoto's. The mid and proximal esophagus was also normal. - Cords/hypopharynx - Normal OVERALL - nothing found/seen which would explain chronic anemia. Surveillance/follow-up recommendations: Pending biopsy results. Unlikely to be necessary. Complications: None Blood loss: Minimal Specimens: YES Procedure in detail: Written consent was obtained from the patient who was in agreement with the risks, benefits and indications of the procedure.? We went to the endoscopy suite and laid the patient in left lateral decubitus position.? Anesthesia was administered which was tolerated well.? A timeout was performed and when we are all in agreement we began the procedure. A well?lubricated endoscope was advanced without difficulty down the esophagus, into the stomach, through a patent pylorus and into the duodenum.? It was then slowly pulled back with findings noted above. The scope was then removed and the patient tolerated the procedure well and was then turned for the colonoscopy portion of the procedure (see separate procedure note).
--- NOTE | 2022-10-09 11:31 | W.ANESPOSTOP ---
Postoperative Evaluation Date, Time and Location Date Performed: 10/09/22 Time Performed: 11:15 Patient Location: Day Surgery Unit Vital Signs Most Recent Imported Vital Signs: Most Recent Vital Signs Temp Pulse Resp BP Pulse Ox 36.1 C L 56 L 16 143/96 H 98 10/09/22 11:14 10/09/22 11:14 10/09/22 11:14 10/09/22 11:14 10/09/22 11:14 Pain Score Most Recent Pain Score: Most Recent Pain Score Pain Level 0 10/09/22 11:14 Assessment Mental Status: Awake (Alert & Oriented to Patient Baseline) Airway and Respiratory Function: Patent airway with normal (patient baseline) respiratory exam Cardiovascular Function: Hemodynamically Stable Hydration Status: Adequately Hydrated Nausea & Vomiting: No Nausea or Vomiting Pain: Pt. Denies Any Pain Peripheral Nerve Block: Patient did not receive a nerve block
[2022-10-09 11:40] VITALS: BP 119/75; PULSE 56; RESP 16; TEMP 36; O2SAT 97
== END 2022-10-09 12:15 | disposition home or self-care (01) ==
PROVIDERS: PCP Nurse Practitioner Family; Visit Provider Student in an Organized Health Care Education/Training Program
PROC: (CPT 45385; principal; 2022-10-09 10:30)
DX: D64.9 Anemia, unspecified (principal); K44.9 Diaphragmatic hernia without obstruction or gangrene; K29.50 Unspecified chronic gastritis without bleeding; K63.5 Polyp of colon; K62.5 Hemorrhage of anus and rectum; E11.9 Type 2 diabetes mellitus without complications; F11.20 Opioid dependence, uncomplicated; B96.81 Helicobacter pylori [H. pylori] as the cause of diseases classified elsewhere
CPT/HCPCS: 45385; 43239; 88305; J2250

== ENCOUNTER 2022-10-11 09:05 | Day surgery (SDC) | payer MEDICARE, SELFPAY ==
[2022-10-11 09:34] VITALS: BP 121/75; PULSE 59; RESP 16; TEMP 36.1; O2SAT 99
[2022-10-11] MEDS: Lactated Ringers 1,000 ML 80 ML IV (09:46)
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
[2022-10-11 11:22] VITALS: BMI 31.9
--- NOTE | 2022-10-11 12:01 | W.COLOREPORT ---
Date of service: 10/11/22 Time of Service: 12:03 Colonoscopy Report Procedure Description: Procedures performed: 1. Colonoscopy Preoperative diagnosis: Anemia Postoperative diagnosis: Colon polyps Surgeon: Kenyon Abrams Anesthesia: Claritza Indication for procedure: Patient is a 57 yo man who had c-scope 2 days ago and the prep was very poor. He was kept on CLD and re-done today. No family history of CR cancer. Long-standing anemia of unknown etiology. No significant symptoms to report. Polyp removed during the scope 2 days ago. Findings: Good prep this time. No other polyps or lesions. The prior polypectomy site in the sigmoid colon was seen. No findings to suggest the colon is the source of anemia. No inflammation. Surveillance/follow-up recommendations: Pending the polyp pathology from other scope. 3-10 years per histology. Complications: None Blood loss: Minimal Specimens:?? No Quality of Prep:?? Good Procedure in detail: Written consent was obtained from the patient who was in agreement with the risks, benefits and indications of the procedure.? We went to the endoscopy suite and laid the patient in left lateral decubitus position.? Anesthesia was administered which was tolerated well.? A timeout was performed and when we are all in agreement we began the procedure. Digital rectal exam and visual examination was performed and within normal limits.? A well?lubricated colonoscope was advanced without difficulty all the way to the cecum identified by the ileocecal valve, and triangular folds and appendiceal orifice.? It was then slowly withdrawn.?? Retroflexion was performed in the rectum.? The findings/interventions are noted above. The scope was then removed and the patient tolerated the procedure well and was then taken back to the PACU in hemodynamically stable condition.
[2022-10-11 12:08] VITALS: BP 123/77; PULSE 51; RESP 16; TEMP 36.1; O2SAT 94
[2022-10-11] MEDS: Acetaminophen 500 MG TAB 1000 MG PO (12:14)
[2022-10-11 12:40] VITALS: BP 122/68; PULSE 57; RESP 16; TEMP 36; O2SAT 97
--- NOTE | 2022-10-11 13:05 | W.ANESPOSTOP ---
Postoperative Evaluation Date, Time and Location Date Performed: 10/11/22 Time Performed: 12:40 Patient Location: Day Surgery Unit Vital Signs Most Recent Imported Vital Signs: Most Recent Vital Signs Temp Pulse Resp BP Pulse Ox 36.1 C L 51 L 16 123/77 94 10/11/22 12:08 10/11/22 12:08 10/11/22 12:08 10/11/22 12:08 10/11/22 12:08 Assessment Mental Status: Awake (Alert & Oriented to Patient Baseline) Airway and Respiratory Function: Patent airway with normal (patient baseline) respiratory exam Cardiovascular Function: Hemodynamically Stable Hydration Status: Adequately Hydrated Nausea & Vomiting: No Nausea or Vomiting Pain: Pain is tolerable per patient Peripheral Nerve Block: Patient did not receive a nerve block Postoperative Comments:: Patient reports headache is subsiding.
== END 2022-10-11 13:00 | disposition home or self-care (01) ==
PROVIDERS: PCP Nurse Practitioner Family; Visit Provider Student in an Organized Health Care Education/Training Program
PROC: 0DJD8ZZ Inspection of Lower Intestinal Tract, Via Natural or Artificial Opening Endoscopic (ICD-10-PCS; CPT 45378; principal; 2022-10-11 11:30)
DX: D64.9 Anemia, unspecified (principal); Z86.010 Personal history of colon polyps
CPT/HCPCS: 45378

== ENCOUNTER 2023-04-28 06:28 | Emergency (ER) | payer MEDICARE, SELFPAY ==
[2023-04-28 06:33] VITALS: BP 135/84; PULSE 72; RESP 20; TEMP 36.8; O2SAT 98
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
--- NOTE | 2023-04-28 07:05 | DI.RAD_ITS ---
Exam(s) XR HAND RT COMPLETE EXAM: XR HAND RT COMPLETE CLINICAL HISTORY: fall, R 4rth MC pain. TECHNIQUE: 2D digital imaging was performed. Three views. COMPARISON: No exams were available for comparison FINDINGS: BONES: No acute fracture is present. Old 5th metacarpal fracture. No bony destructive lesion is see n. JOINTS: No dislocation present. SOFT TISSUE: Posterior swelling. IMPRESSION: No acute fracture. DATA REPOSITORY: RADIATION DOSE DELIVERED:
[2023-04-28 07:20] VITALS: BP 136/80; PULSE 85; RESP 20; TEMP 36.8; O2SAT 99
--- NOTE | 2023-04-28 07:40 | DI.VRAD_ITS ---
PROCEDURE INFORMATION: Exam: XR Right Hand Exam date and time: 04/28/2023 7:02 AM Age: 57 years old Clinical indication: Injury or trauma; Sprain or strain; Hand; Right; Patient HX: Fall, R 4th mc pain. Tripped on dog TECHNIQUE: Imaging protocol: Radiologic exam of the right hand. Views: 3 or more views. COMPARISON: CR XR wrist RT complete 11/18/2018 1:21 AM FINDINGS: Bones/joints: Possible old, healed 5th metacarpal fracture. No acute fracture seen. No dislocation. Soft tissues: Normal. IMPRESSION: No acute findings. Dictated and Authenticated by: Arely Iqbal MD. Ordering:NISHANT Perla MD
== END 2023-04-28 07:28 | disposition home or self-care (01) ==
PROVIDERS: Emergency Provider Emergency Medicine; PCP Nurse Practitioner Family
DX: S60.221A Contusion of right hand, initial encounter (principal); J44.9 Chronic obstructive pulmonary disease, unspecified; G40.909 Epilepsy, unspecified, not intractable, without status epilepticus; E11.9 Type 2 diabetes mellitus without complications; F17.210 Nicotine dependence, cigarettes, uncomplicated; Z79.84 Long term (current) use of oral hypoglycemic drugs; W01.198A Fall on same level from slipping, tripping and stumbling with subsequent striking against other object, initial encounter; Y93.01 Activity, walking, marching and hiking; Y92.018 Other place in single-family (private) house as the place of occurrence of the external cause; Y99.9 Unspecified external cause status
CPT/HCPCS: 99283; 73130

== ENCOUNTER 2023-06-17 13:37 | Outpatient (REF) | payer MEDICARE, SELFPAY ==
[2023-06-17 19:17] LABS: Abs Immature Grans 0.02 10^3/uL (0.0-0.06); Absolute Basophil Count 0.11 10^3/uL (0.0-0.2); Absolute Eosinophil Count 0.24 10^3/uL (0.0-0.7); Absolute Lymphocyte Count 4.94 10^3/uL (1.2-3.4); Absolute Monocyte Count 0.54 10^3/uL (0.1-0.8); Absolute Neutrophil Count 3.73 10^3/uL (1.2-6.7); Basophils % 1.1; Eosinophils % 2.5; HCT 36.6 % (40.0-50.0); HGB 11.5 g/dL (13.5-17.5); Immature Grans % 0.2; Lymphocytes % 51.6; MCH 25.2 pg (27.0-33.0); MCHC 31.4 % (32.0-36.0); MCV 80 fL (80-95); MPV 9.9 fL (8.0-11.0); Monocytes % 5.6; Platelet Count 242 10^3/uL (130-400); RBC 4.57 10^6/uL (4.36-5.78); RDW 14.8 % (11.8-14.1); RDW-SD 43.4 fL; WBC 9.58 10^3/uL (4.4-10.8)
[2023-06-17 19:39] LABS: Hemoglobin A1C 6.2 % (<5.7)
[2023-06-17 19:46] LABS: ALT 28 U/L (16-63); AST 27 U/L (15-37); Albumin 3.4 g/dL (3.4-5.0); Alkaline Phosphatase 83 U/L (46-116); Anion Gap 8.1 mmol/L (3-11); BUN 16 mg/dL (7-18); Bilirubin, Total 0.3 mg/dL (0.2-1.0); CO2 27.9 mmol/L (21.0-32.0); CREATININE 1.1 mg/dL (0.70-1.30); Calcium 9.5 mg/dL (8.5-10.1); Calculated LDL 135 mg/dL (<100); Chloride 102 mmol/L (98-107); Cholesterol 209 mg/dL (<200); Glucose 76 mg/dL (74-106); HDL Cholesterol 59 mg/dL (40-60); Potassium 3.7 mmol/L (3.5-5.1); Sodium 138 mmol/L (136-145); Total Protein 7.1 g/dL (6.4-8.2); Triglyceride 79 mg/dL (<150)
[2023-06-18 17:56] LABS: Valproic Acid <10 ug/mL (50-100)
== END 2023-06-17 13:38 | disposition home or self-care (01) ==
LOC: NCHCN 13:37
PROVIDERS: PCP Nurse Practitioner Family; Visit Provider Nurse Practitioner Family
DX: D64.9 Anemia, unspecified (principal); E11.9 Type 2 diabetes mellitus without complications; R79.89 Other specified abnormal findings of blood chemistry; R56.9 Unspecified convulsions; Z11.51 Encounter for screening for human papillomavirus (HPV); Z79.899 Other long term (current) drug therapy
CPT/HCPCS: 80053; 80061; 80164; 83036; 85025

== ENCOUNTER 2023-09-15 13:03 | Outpatient (REF) | payer MEDICARE, SELFPAY ==
[2023-09-15 15:09] LABS: Abs Immature Grans 0.05 10^3/uL (0.0-0.06); Absolute Basophil Count 0.17 10^3/uL (0.0-0.2); Absolute Eosinophil Count 0.13 10^3/uL (0.0-0.7); Absolute Lymphocyte Count 3.38 10^3/uL (1.2-3.4); Absolute Monocyte Count 0.67 10^3/uL (0.1-0.8); Absolute Neutrophil Count 4.33 10^3/uL (1.2-6.7); Basophils % 1.9; Eosinophils % 1.5; HCT 39.8 % (40.0-50.0); HGB 12.5 g/dL (13.5-17.5); Immature Grans % 0.6; Lymphocytes % 38.7; MCH 25.3 pg (27.0-33.0); MCHC 31.4 % (32.0-36.0); MCV 80 fL (80-95); MPV 8.9 fL (8.0-11.0); Monocytes % 7.7; Neutrophils % 49.6; Platelet Count 493 10^3/uL (130-400); RBC 4.95 10^6/uL (4.36-5.78); RDW 15.3 % (11.8-14.1); RDW-SD 44.5 fL; WBC 8.73 10^3/uL (4.4-10.8)
[2023-09-15 15:22] LABS: Iron 61 ug/dL (65-175); Total Iron Binding Capacity 417 ug/dL (250-450); Transferrin Sat 15 % (20-55)
[2023-09-15 15:23] LABS: VALPROIC ACID 20.8 ug/mL
[2023-09-15 15:32] LABS: Hemoglobin A1C 6.4 % (<5.7)
[2023-09-15 23:10] LABS: PSA, Screening 0.3 ng/mL (<=3.5)
[2023-09-16 11:05] LABS: Hepatitis C Ab w Rflx HCV PCR Negative (Negative)
[2023-09-16 17:31] LABS: Ferritin 43 ng/mL (26-388)
== END 2023-09-15 13:04 | disposition home or self-care (01) ==
LOC: NCHCN 13:03
PROVIDERS: PCP Nurse Practitioner Family; Visit Provider Nurse Practitioner Family
DX: D64.9 Anemia, unspecified (principal); E11.9 Type 2 diabetes mellitus without complications; R56.9 Unspecified convulsions; R39.12 Poor urinary stream; Z12.5 Encounter for screening for malignant neoplasm of prostate; Z11.59 Encounter for screening for other viral diseases; Z51.81 Encounter for therapeutic drug level monitoring; Z79.899 Other long term (current) drug therapy
CPT/HCPCS: 84153; 86803; 80164; 82728; 83036; 83540; 83550; 85025

== ENCOUNTER 2024-02-16 16:18 | Outpatient (REF) | payer MEDICARE, SELFPAY ==
[2024-02-16 18:52] LABS: *AMPHETAMINES SCREEN URINE Negative (Negative); *BARBITURATES SCREEN URINE Negative (Negative); *BENZODIAZEPINES SCREEN URINE Negative (Negative); Cannabinoids THC Positive (Negative); Cocaine Screen,Urine Negative (Negative); METHADONE URINE SCREEN Positive (Negative); OPIATES URINE SCREEN Negative (Negative)
[2024-02-16 18:54] LABS: Tricyclic Antidepressants Negative (Negative)
== END 2024-02-16 16:19 | disposition home or self-care (01) ==
LOC: NCHCN 16:18
PROVIDERS: Visit Provider Nurse Practitioner Psychiatric/Mental Health
DX: R82.5 Elevated urine levels of drugs, medicaments and biological substances (principal); Z51.81 Encounter for therapeutic drug level monitoring
CPT/HCPCS: 80307

== ENCOUNTER 2024-03-23 18:56 | Outpatient (REF) | payer MEDICARE, SELFPAY ==
[2024-03-23 15:40] LABS: ALT 16 U/L (16-63); AST 13 U/L (15-37); Albumin 3.3 g/dL (3.4-5.0); Anion Gap 3.5 mmol/L (3-11); BUN 10 mg/dL (7-18); CO2 32.5 mmol/L (21.0-32.0); CREATININE 1.1 mg/dL (0.70-1.30); Calcium 8.9 mg/dL (8.5-10.1); Chloride 102 mmol/L (98-107); Glucose 102 mg/dL (74-106); PHOSPHORUS 3.2 mg/dL (2.6-4.7); Potassium 5.4 mmol/L (3.5-5.1); Sodium 138 mmol/L (136-145)
[2024-03-23 15:49] LABS: VALPROIC ACID 26.8 ug/mL
== END 2024-03-23 18:57 | disposition home or self-care (01) ==
LOC: NCHCN 18:56
PROVIDERS: PCP Nurse Practitioner Psychiatric/Mental Health; Visit Provider Nurse Practitioner Psychiatric/Mental Health
DX: Z51.81 Encounter for therapeutic drug level monitoring (principal)
CPT/HCPCS: 80069; 80164; 84450; 84460

== ENCOUNTER 2024-04-01 13:12 | Outpatient (REF) | payer MEDICARE, SELFPAY ==
[2024-04-01 18:48] LABS: Abs Immature Grans 0.03 10^3/uL (0.0-0.06); Absolute Basophil Count 0.05 10^3/uL (0.0-0.2); Absolute Eosinophil Count 0.12 10^3/uL (0.0-0.7); Absolute Lymphocyte Count 3.77 10^3/uL (1.2-3.4); Absolute Neutrophil Count 3.27 10^3/uL (1.2-6.7); Basophils % 0.6 %; Eosinophils % 1.6 %; HCT 36.3 % (40.0-50.0); HGB 11.3 g/dL (13.5-17.5); Immature Grans % 0.4 %; Lymphocytes % 48.7 %; MCH 25.3 pg (27.0-33.0); MCHC 31.1 % (32.0-36.0); MCV 81 fL (80-95); MPV 9.5 fL (8.0-11.0); Monocytes % 6.5 %; Neutrophils % 42.2 %; Platelet Count 333 10^3/uL (130-400); RBC 4.47 10^6/uL (4.36-5.78); RDW 16.4 % (11.8-14.1); RDW-SD 48.9 fL; WBC 7.74 10^3/uL (4.4-10.8)
[2024-04-01 19:05] LABS: Hemoglobin A1C 6.2 % (<5.7)
[2024-04-01 19:21] LABS: Iron 86 ug/dL (65-175); Total Iron Binding Capacity 443 ug/dL (250-450); Transferrin Sat 19 % (20-55)
[2024-04-01 19:32] LABS: ALT 44 U/L (16-63); AST 106 U/L (15-37); Albumin 3.4 g/dL (3.4-5.0); Alkaline Phosphatase 77 U/L (46-116); Anion Gap 4.2 mmol/L (3-11); BUN 8 mg/dL (7-18); Bilirubin, Total 0.27 mg/dL (0.2-1.0); CO2 34.8 mmol/L (21.0-32.0); CREATININE 1.1 mg/dL (0.70-1.30); Calcium 9.4 mg/dL (8.5-10.1); Calculated LDL 176 mg/dL (<100); Chloride 100 mmol/L (98-107); Cholesterol 277 mg/dL (<200); Ferritin 36 ng/mL (26-388); Glucose 76 mg/dL (74-106); HDL Cholesterol 63 mg/dL (40-60); Potassium 4.5 mmol/L (3.5-5.1); Sodium 139 mmol/L (136-145); Total Protein 6.8 g/dL (6.4-8.2); Triglyceride 192 mg/dL (<150)
== END 2024-04-01 13:13 | disposition home or self-care (01) ==
LOC: NCHCN 13:12
PROVIDERS: PCP Nurse Practitioner Psychiatric/Mental Health; Visit Provider Nurse Practitioner Family
DX: D64.9 Anemia, unspecified (principal); E11.9 Type 2 diabetes mellitus without complications; E78.89 Other lipoprotein metabolism disorders
CPT/HCPCS: 80053; 80061; 82728; 83036; 83540; 83550; 85025

== ENCOUNTER 2024-04-19 13:21 | Outpatient (REF) | payer MEDICARE, SELFPAY ==
[2024-04-19 19:04] LABS: VALPROIC ACID < 3 ug/mL
[2024-04-19 19:10] LABS: *AMPHETAMINES SCREEN URINE Negative (Negative); *BARBITURATES SCREEN URINE Negative (Negative); *BENZODIAZEPINES SCREEN URINE Negative (Negative); Cannabinoids THC Positive (Negative); Cocaine Screen,Urine Positive (Negative); METHADONE URINE SCREEN Positive (Negative); OPIATES URINE SCREEN Negative (Negative)
[2024-04-19 19:14] LABS: Tricyclic Antidepressants Negative (Negative)
[2024-04-24 05:10] LABS: Methylphenidate 197 ng/mL (Cutoff: 10)
== END 2024-04-19 13:22 | disposition home or self-care (01) ==
LOC: NCHCN 13:21
PROVIDERS: PCP Nurse Practitioner Psychiatric/Mental Health; Visit Provider Nurse Practitioner Psychiatric/Mental Health
DX: Z51.81 Encounter for therapeutic drug level monitoring (principal); F90.9 Attention-deficit hyperactivity disorder, unspecified type
CPT/HCPCS: 80053; 80307; 80360; 85027; 80164; 83735

== ENCOUNTER 2024-05-17 14:55 | Outpatient (REF) | payer MEDICARE, SELFPAY ==
[2024-05-17 19:25] LABS: *AMPHETAMINES SCREEN URINE Negative (Negative); *BARBITURATES SCREEN URINE Negative (Negative); *BENZODIAZEPINES SCREEN URINE Negative (Negative); Cannabinoids THC Positive (Negative); Cocaine Screen,Urine Positive (Negative); OPIATES URINE SCREEN Negative (Negative); Tricyclic Antidepressants Negative (Negative)
== END 2024-05-17 14:56 | disposition home or self-care (01) ==
LOC: NCHCN 14:55
PROVIDERS: PCP Nurse Practitioner Psychiatric/Mental Health; Visit Provider Nurse Practitioner Psychiatric/Mental Health
DX: R82.5 Elevated urine levels of drugs, medicaments and biological substances (principal); Z51.81 Encounter for therapeutic drug level monitoring
CPT/HCPCS: 80307

== ENCOUNTER 2024-06-01 15:19 | Outpatient (REF) | payer MEDICARE, SELFPAY ==
[2024-06-01 17:13] LABS: VALPROIC ACID 114.1 ug/mL
[2024-06-01 18:44] LABS: Hemoglobin A1C 6.1 % (<5.7)
== END 2024-06-01 15:20 | disposition home or self-care (01) ==
LOC: NCHCN 15:19
PROVIDERS: PCP Nurse Practitioner Psychiatric/Mental Health; Visit Provider Nurse Practitioner Family
DX: E11.9 Type 2 diabetes mellitus without complications (principal)
CPT/HCPCS: 80164; 83036

== ENCOUNTER 2024-06-21 18:36 | Outpatient (REF) | payer MEDICARE, SELFPAY ==
[2024-06-21 22:33] LABS: *AMPHETAMINES SCREEN URINE Negative (Negative); *BARBITURATES SCREEN URINE Negative (Negative); *BENZODIAZEPINES SCREEN URINE Negative (Negative); Cannabinoids THC Positive (Negative); Cocaine Screen,Urine Positive (Negative); OPIATES URINE SCREEN Negative (Negative); Tricyclic Antidepressants Negative (Negative)
[2024-06-26 07:37] LABS: Methylphenidate Negative ng/mL (Cutoff: 10); Ritalinic Acid Negative ng/mL (Cutoff: 50)
== END 2024-06-21 18:37 | disposition home or self-care (01) ==
LOC: NCHCN 18:36
PROVIDERS: PCP Nurse Practitioner Psychiatric/Mental Health; Visit Provider Nurse Practitioner Psychiatric/Mental Health
DX: Z51.81 Encounter for therapeutic drug level monitoring (principal)
CPT/HCPCS: 80307; 80360

== ENCOUNTER 2024-09-01 10:48 | Outpatient (REF) | payer MEDICARE, SELFPAY ==
[2024-09-01 18:47] LABS: Abs Immature Grans 0.03 10^3/uL (0.0-0.06); Absolute Basophil Count 0.06 10^3/uL (0.0-0.2); Absolute Eosinophil Count 0.08 10^3/uL (0.0-0.7); Absolute Lymphocyte Count 3.05 10^3/uL (1.2-3.4); Absolute Monocyte Count 0.66 10^3/uL (0.1-0.8); Absolute Neutrophil Count 3.77 10^3/uL (1.2-6.7); Basophils % 0.8 %; HCT 36.9 % (40.0-50.0); HGB 11.8 g/dL (13.5-17.5); Immature Grans % 0.4 %; Lymphocytes % 39.9 %; MCH 25.9 pg (27.0-33.0); MCV 81 fL (80-95); MPV 9.5 fL (8.0-11.0); Monocytes % 8.6 %; Neutrophils % 49.3 %; Platelet Count 291 10^3/uL (130-400); RBC 4.56 10^6/uL (4.36-5.78); RDW 15.7 % (11.8-14.1); RDW-SD 45.7 fL; WBC 7.65 10^3/uL (4.4-10.8)
[2024-09-01 18:59] LABS: Hemoglobin A1C 6.2 % (<5.7)
[2024-09-01 19:00] LABS: ALT 22 U/L (16-63); AST 18 U/L (15-37); Albumin 3.7 g/dL (3.4-5.0); Alkaline Phosphatase 76 U/L (46-116); Anion Gap 9.2 mmol/L (3-11); BUN 9 mg/dL (7-18); Bilirubin, Total 0.25 mg/dL (0.2-1.0); CO2 28.8 mmol/L (21.0-32.0); Calcium 9.9 mg/dL (8.5-10.1); Chloride 102 mmol/L (98-107); Estimated GFR 87.24 (mL/min/1.73m2); Glucose 88 mg/dL (74-106); Potassium 4.4 mmol/L (3.5-5.1); Sodium 140 mmol/L (136-145); Total Protein 7.2 g/dL (6.4-8.2)
[2024-09-01 19:54] LABS: VALPROIC ACID 14.8 ug/mL
[2024-09-02 17:47] LABS: PSA, Diagnostic 0.2 ng/mL (<=3.5)
== END 2024-09-01 10:49 | disposition home or self-care (01) ==
LOC: NCHCN 10:48
PROVIDERS: PCP Nurse Practitioner Psychiatric/Mental Health; Visit Provider Nurse Practitioner Family
DX: E11.9 Type 2 diabetes mellitus without complications (principal); R39.11 Hesitancy of micturition
CPT/HCPCS: 80053; 80164; 83036; 84153; 85025

== ENCOUNTER 2024-09-13 01:30 | Outpatient (CLI) | payer MEDICARE, SELFPAY ==
--- NOTE | 2024-09-13 | ETT_ITS ---
APPROVED REPORT Exam: Exercise Treadmill Patient Location: Out-Patient Room/Bed: Stress Nurse: Bree Wiggins RN Ordering Provider:ALBERTO REA, Contact Number: [phone] BMI: 33.24 Baseline Rhythm: Sinus Rhythm Indications: chest pain with exertion Medical History Medical History: DM2, anemia, anxiety, mixed anxiety and depression disorder, personality disorder, n icotine dependence, tic disorder, sleep terror disorder, PTSD, ADHD, COPD, GERD, seizures, hx TBI, mi graines, panic disorder, elevated LDL Cardiac Medications: advair, albuterol sulfate, arnuity elipta, atorvastatin, divalproex, ferrous glu conate, fluoxetine, focalin, gabapentin, hydroxyzine, metformin, methadone, omeprazole, prazosin Allergies: paxel Cardiac Risk Factors: family hx, diabetes, HLD, COPD, smoker Previous Cardiac Procedures: none Pretest Chest Pain Characteristics: No chest pain Exercise History: Sedentary Physical Disabilities: none Lung Sounds: right lower lobe expiratory wheeze, dimininshed Heart Sounds: Regular Stress Test Details Test: Exercise stress testing was performed using a Garrick protocol. Rest Stress HR Resting HR Supine: 75 bpm Max Heart Rate (APMHR): 162 bpm Resting HR Standin bpm Target HR (85% APMHR): 138 bpm Max HR Achieved: 145 bpm % of APMHR: 90 Recovery HR: 76 bpm HR response to stress: Accelerated HR response to stress BP Resting BP Supine: 150/86 mmHg Resting BP Standin/76 mmHg Max BP: 180/102 mmHg Recovery BP: 140/84 mmHg BP response to stress: Normal blood pressure response to stress. ECG Resting ECG: Sinus Rhythm Comment: occasional PACs Stress ECG: Sinus Tachycardia ST Change: No significant ST segment changes noted Arrhythmia: occasional PACs Recovery ECG: Sinus Rhythm Recovery ST Change: No significant ST segment changes noted Recovery Arrhythmia: frequent PACs, bigeminy Clinical Reason for Termination: Target HR Achieved Stress Symptoms: Dyspnea Exercise duration: 01 min37 sec Highest Stage Reached: Stage 1: 1.7 mph at 10% grade. Exercise capacity: 3.72 METs Angina Score: None Fuller Treadmill Score: 1.5 Rate Pressure Product: 32982 Stress ECG Conclusion 1. Resting electrocardiogram was normal 2. Patient exercised briefly on the Garrick protocol for 1 minute and 37 seconds, a workload of 3.72 ME TS 3. Rapid heart rate increase with exercise suggest deconditioning. Peak heart rate was 90% of samreen l predicted for age 4. There was no electrocardiographic evidence of myocardial ischemia 5. There were no significant dysrhythmias Fuller Treadmill Score is 1.5 which is Moderate risk. Stress Test Summary STAGE Time (mins) Speed (mph) Grade (%) HR BP SpO2 SYMPTOMS METS Supine 75 150/86 96 Standing 79 146/70 1 3 1.7 10 140 96 mod-severe SOB 4.5 1 min recovery 119 180/102 3 min recovery 87 170/94 6 min recovery 76 140/84 98 SOB resolved during recovery, patient left ambulatory in no acute distress.
== END 2024-09-13 01:50 ==
PROVIDERS: PCP Nurse Practitioner Psychiatric/Mental Health; Visit Provider Internal Medicine Cardiovascular Disease
DX: R07.89 Other chest pain (principal)
CPT/HCPCS: 93016; 93018; 93017

== ENCOUNTER 2024-10-11 11:46 | Outpatient (REF) | payer MEDICARE, SELFPAY ==
[2024-10-19 10:19] LABS: Misc Referral (MAYO) See Comments
== END 2024-10-11 11:47 | disposition home or self-care (01) ==
LOC: NCHCN 11:46
PROVIDERS: PCP Nurse Practitioner Psychiatric/Mental Health; Visit Provider Nurse Practitioner Family
DX: R56.9 Unspecified convulsions (principal)
CPT/HCPCS: 80165

== ENCOUNTER 2024-12-07 12:42 | Outpatient (REF) | payer MEDICARE, SELFPAY ==
[2024-12-07 15:37] LABS: Abs Immature Grans 0.04 10^3/uL (0.0-0.06); Absolute Basophil Count 0.08 10^3/uL (0.0-0.2); Absolute Eosinophil Count 0.13 10^3/uL (0.0-0.7); Absolute Lymphocyte Count 4.21 10^3/uL (1.2-3.4); Absolute Monocyte Count 0.41 10^3/uL (0.1-0.8); Absolute Neutrophil Count 3.61 10^3/uL (1.2-6.7); Basophils % 0.9 %; Eosinophils % 1.5 %; HCT 37.3 % (40.0-50.0); HGB 11.8 g/dL (13.5-17.5); Immature Grans % 0.5 %; Lymphocytes % 49.6 %; MCH 25.2 pg (27.0-33.0); MCHC 31.6 % (32.0-36.0); MCV 80 fL (80-95); MPV 9.9 fL (8.0-11.0); Monocytes % 4.8 %; Neutrophils % 42.7 %; Platelet Count 325 10^3/uL (130-400); RBC 4.68 10^6/uL (4.36-5.78); RDW 14.5 % (11.8-14.1); RDW-SD 41.8 fL; WBC 8.48 10^3/uL (4.4-10.8)
[2024-12-07 16:37] LABS: VALPROIC ACID 89.4 ug/mL
[2024-12-07 17:30] LABS: Iron 47 ug/dL (65-175); Total Iron Binding Capacity 429 ug/dL (250-450); Transferrin Sat 11 % (20-55)
[2024-12-07 18:10] LABS: Hemoglobin A1C 6.4 % (<5.7)
[2024-12-07 18:14] LABS: ALT 14 U/L (16-63); AST 12 U/L (15-37); Albumin 3.5 g/dL (3.4-5.0); Alkaline Phosphatase 85 U/L (46-116); Anion Gap 11.1 mmol/L (3-11); BUN 20 mg/dL (7-18); Bilirubin, Total 0.18 mg/dL (0.2-1.0); CO2 26.9 mmol/L (21.0-32.0); CREATININE 1.1 mg/dL (0.70-1.30); Calcium 9.4 mg/dL (8.5-10.1); Chloride 102 mmol/L (98-107); Estimated GFR 77.81 (mL/min/1.73m2); Ferritin 26 ng/mL (26-388); Glucose 92 mg/dL (74-106); Potassium 4.6 mmol/L (3.5-5.1); Sodium 140 mmol/L (136-145); Total Protein 6.9 g/dL (6.4-8.2)
== END 2024-12-07 12:43 | disposition home or self-care (01) ==
LOC: NCHCN 12:42
PROVIDERS: PCP Nurse Practitioner Psychiatric/Mental Health; Visit Provider Nurse Practitioner Family
DX: R56.9 Unspecified convulsions; E11.9 Type 2 diabetes mellitus without complications
CPT/HCPCS: 80053; 80164; 82728; 83036; 83540; 83550; 85025

== ENCOUNTER 2025-02-02 16:58 | Outpatient (REF) | payer MEDICARE, SELFPAY ==
[2025-02-02 16:24] LABS: COMMENT (LAB VIEW ONLY) 134.57 mg/dL; Microalb ug/mg Crea 8.8 ug/mg Cr
== END 2025-02-02 16:59 | disposition home or self-care (01) ==
LOC: NCHCN 16:58
PROVIDERS: PCP Nurse Practitioner Psychiatric/Mental Health; Visit Provider Nurse Practitioner Family
DX: E11.9 Type 2 diabetes mellitus without complications (principal)
CPT/HCPCS: 82043; 82570

== ENCOUNTER 2025-05-16 01:20 | Outpatient (CLI) | payer MEDICARE, OTHER, SELFPAY ==
--- NOTE | 2025-05-16 | DI.CTLCSR_ITS ---
Exam(s) CT CHEST LUNG CANCER SCREEN EXAM: CT CHEST LUNG CANCER SCREEN CLINICAL HISTORY: NICOTINE DEPENDENCE F17.210 SCREENING FOR LUNG CANCER TECHNIQUE: Imaging Protocol: Axial computed tomography images with coronal and sagittal reformatted images were created and reviewed. Lung Computer Aided Detection (CAD) was utilized. COMPARISON: CT CT CHEST/ABD/PEL W from 11/17/2018 CR,XR XR CHEST 1V IN [facility] DEPT from 01/12/2021 FINDINGS: Tracheobronchial tree: Patent where visualized. No bronchiectasis. Pulmonary parenchyma: No consolidation or dominant measurable mass. Mild centrilobular emphysematous changes are present. Mild scarring or atelectasis is seen in the left upper lobe and the right middle lobe. Lung Nodules: There is a 4 mm nodule associated with the right minor fissure (series 4, image 70). There is a 2 mm nodule in the left lingula. Mediastinum and Sharon: No dominant adenopathy or fluid collection. The esophagus is unremarkable. Thyroid gland: Unremarkable. Lymph nodes: Unremarkable. Pleura: No effusion or pneumothorax. Heart: The heart is not dilated. There is mild single-vessel coronary artery calcification. No pericardial effusion. Aorta: Thoracic aorta non-dilated.Mild atherosclerotic calcification is present. Upper abdomen: Unremarkable. Soft Tissues: Minimal gynecomastia is present. Bones: Within normal limits. There are old right rib fracture deformities. IMPRESSION: Two lung nodules are visualized. The largest measures 4 mm. Lung RADS Cat 3 - Probably Benign: Probably benign finding(s) - short term follow-up suggested; include nodules with a low likelihood of becoming a clinically active cancer. Lung-RADS 1.0 CATEGORIES: Category 0 - Prior chest CT exam(s) being located for comparison. Category 1 - Annual screening in 12 months. No nodules or definitely benign nodules. Category 2 - Annual screening in 12 months. Benign appearance. Nodules with low likelihood of becoming active cancer. Category 3 - 6-month follow-up. Probably benign. Short-term follow-up suggested. Nodules with low likelihood of becoming active cancer. Category 4A - 3-month follow-up and CT/PET if >8 mm in size. Suspicious finding. Findings which require additional testing. Category 4B - Findings which require additional testing and tissue sampling. Suspicious finding. Category 4X - Category 3 or 4 nodules with additional features or imaging findings that increases the suspicion of malignancy. Modifier S- Potentially clinically significant finding. (Non lung cancer) RADIATION DOSE DELIVERED: 35.85mGy.cm Total DLP 35.85mGy.cmTotal DLP DATA REPOSITORY: All CT scans at this facility are submitted to the National Radiology Data Registry (NRDR) Dose Index Registry (DIR) with the [employer] ([employer]). RADIATION OPTIMIZATION: All CT scans at this facility use at least one of these dose optimization techniques: automated exposure control; mA and/or kV adjustment per patient size (includes targeted exams where dose is matched to clinical indication); or iterative reconstruction.
== END 2025-05-16 01:40 ==
PROVIDERS: PCP Nurse Practitioner Psychiatric/Mental Health; Visit Provider Physician Assistant
DX: Z12.2 Encounter for screening for malignant neoplasm of respiratory organs (principal); F17.210 Nicotine dependence, cigarettes, uncomplicated; R91.8 Other nonspecific abnormal finding of lung field
CPT/HCPCS: 71271

== ENCOUNTER 2025-07-04 01:10 | Inpatient (IN) | payer MEDICARE, SELFPAY ==
[2025-07-04] VITALS (70 sets, daily range): BP systolic 112–175; BP diastolic 64–109; PULSE 55–227; RESP 13–33; TEMP 36–37.9; O2SAT 78–98
--- NOTE | 2025-07-04 01:00 | RT.EKG_ITS ---
APPROVED REPORT Exam: Resting ECG Reason for Exam: sob Patient Location: E HR:54 bpm ECG Measurements Heart Rate 54 AXIS OK 160 P 2 QRSd 91 QRS 31 QT 612 T 4 QTc 581 Conclusion Sinus bradycardia...rate< 60 Prolonged QT interval...QTc >500mS Normal [place] No acute ST changes.
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
--- NOTE | 2025-07-04 01:15 | DI.RAD_ITS ---
Exam(s) XR ANKLE RT COMPLETE XR TIB/FIB RT EXAM: XR TIB/FIB RT CLINICAL HISTORY: trauma. TECHNIQUE: 2D digital imaging was performed. Two views of the tibia and fibula. Three views of the ankle. COMPARISON: CR,XR XR ANKLE RT COMPLETE from 07/04/2025 FINDINGS: BONES: The lower leg and ankle are viewed within a splint which somewhat limits visualization of bony detail. There is a fracture extending transversely through the medial malleolus with mild displacement. There is a comminuted fracture of the distal fibula, also with mild displacement. There is a fracture of the posterior malleolus with mild separation at the articular surface. The ankle mortise is mildly widened. No talar dome defect is seen. No additional fractures are seen more superiorly in the tibia or fibula. The knee is unremarkable. SOFT TISSUE: Obscured by cast material. IMPRESSION: Trimalleolar fracture. The preliminary [facility] report was reviewed. DATA REPOSITORY: RADIATION DOSE DELIVERED:
--- NOTE | 2025-07-04 01:15 | DI.CT_ITS ---
Exam(s) CT HEAD CERVICAL SPINE WO EXAM: CT HEAD CERVICAL SPINE WO CLINICAL HISTORY: altered mental status/fall. TECHNIQUE: Imaging Protocol: Axial computed tomography images with coronal and sagittal reformatted images were created and reviewed COMPARISON: CT CT HEAD WO from 01/12/2021 FINDINGS: Head CT Ventricles and Extra axial spaces: Normal in size and morphology for the patient's age. Hemorrhage: None. Cerebral parenchyma: No evidence of mass or acute infarct. Midline shift: None. Brainstem/Cerebellum: Normal. Calvarium: Normal. Visualized Paranasal sinuses/Mastoids: Clear. Soft tissues: Unremarkable. Cervical Spine CT Exam is limited by patient motion BONES: Vertebral body heights are maintained. Alignment is normal. There is no evidence of acute fracture. Degenerative disc changes and facet degenerative changes are seen . SOFT TISSUES: No paraspinal hematoma. The airway appears intact. No pneumothorax is seen at the lung apices. IMPRESSION: Head CT: No acute abnormality. C-spine CT: Degenerative changes, no acute abnormality. The preliminary [facility] report was reviewed. RADIATION DOSE DELIVERED: 1,591.68mGy.cm Total DLP DATA REPOSITORY: All CT scans at this facility are submitted to the National Radiology Data Registry (NRDR) Dose Index Registry (DIR) with the [employer] ([employer]). RADIATION OPTIMIZATION: All CT scans at this facility use at least one of these dose optimization techniques: automated exposure control; mA and/or kV adjustment per patient size (includes targeted exams where dose is matched to clinical indication); or iterative reconstruction.
--- NOTE | 2025-07-04 01:15 | DI.CT_ITS ---
Exam(s) CT CHEST/ABD/PEL W EXAM: CT CHEST/ABD/PEL W CLINICAL HISTORY: altered mental status/fall. TECHNIQUE: Imaging Protocol: Axial computed tomography images with coronal and sagittal reformatted images were created and reviewed. Computer aided detection (CAD) was utilized. CONTRAST MATERIAL: Intravenous: Omnipaque 350 Contrast volume:100 ml Oral: yes / no COMPARISON: CT CT CHEST LUNG CANCER SCREEN from 05/16/2025 FINDINGS: CHEST: Pulmonary parenchyma: No consolidation. Emphysematous changes. Tracheobronchial tree: No bronchiectasis. No mucous plugging.No bronchial wall thickening. Pleura: No effusion or pneumothorax. Mediastinum: Within normal limits. Pulmonary arteries: No visible emboli. Cardiovascular: Coronary artery calcifications. No pericardial effusion. Thoracic aorta non-dilated. Bones: Acute mildly displaced right 5th and 6th rib fractures. Old posterior lower right rib fractures. No lytic or blastic lesions. No acute compression fractures. There are stable minimal compression deformities of upper thoracic vertebral bodies. Soft tissues: Unremarkable. ABDOMEN and PELVIS: Exam is limited by motion and artifact due to patient arm positioning. Liver: Normal density. No suspicious mass. Gallbladder and biliary tract: No evidence of stones or wall thickening. No biliary dilatation. Pancreas: No somewhat atrophic. No abnormal calcifications or inflammatory process. Spleen: Normal. Kidneys: Normal size, contour and axis. No radiodense stones. No obstructive uropathy. No suspicious masses seen. Adrenal glands: No masses seen. Aorta: Abdominal portion non-dilated. Lymph nodes: Within normal limits. Soft tissues: Unremarkable. Bladder: Over distended but unremarkable. Bowel: No obstruction or bowel wall thickening. Peritoneal cavity: No ascites. No focal collection. No mesenteric inflammatory response. No free air. Bones: Unremarkable for age. Reproductive organs: Unremarkable for age. IMPRESSION: Exam is limited by motion. There are mildly displaced right 5th and 6th rib fractures. No pneumothorax or pulmonary contusion. Lung no acute abnormality in the abdomen or pelvis. The preliminary [facility] report was reviewed. RADIATION DOSE DELIVERED: 1,405.62mGy.cm Total DLP DATA REPOSITORY: All CT scans at this facility are submitted to the National Radiology Data Registry (NRDR) Dose Index Registry (DIR) with the [employer] (ACR). RADIATION OPTIMIZATION: All CT scans at this facility use at least one of these dose optimization techniques: automated exposure control; mA and/or kV adjustment per patient size (includes targeted exams where dose is matched to clinical indication); or iterative reconstruction.
[2025-07-04 01:37] LABS: BE (Venous) 3 mmol/L (-2-3); HCO3 (Venous) 28 mmol/L (23-28); O2 Sat (Venous) 53 %; TCO2 (Venous) 26 mmol/L (24-29); pCO2 (Venous) 46 mmHg (41-51); pO2 (Venous) 32 mmHg
[2025-07-04 01:39] LABS: Abs Immature Grans 0.05 10^3/uL (0.0-0.06); HCT 32.3 % (40.0-50.0); HGB 10.5 g/dL (13.5-17.5); Immature Grans % 0.5 %; MCH 24.9 pg (27.0-33.0); MCHC 32.5 % (32.0-36.0); MCV 77 fL (80-95); MPV 9.1 fL (8.0-11.0); Platelet Count 278 10^3/uL (130-400); RBC 4.22 10^6/uL (4.36-5.78); RDW 14.7 % (11.8-14.1); RDW-SD 40.3 fL; WBC 9.89 10^3/uL (4.4-10.8)
[2025-07-04] MEDS: Lactated Ringers 1,000 ML 1000 ML IV (01:41)
[2025-07-04] MEDS: Ketorolac 15 MG/ML VIAL IVP (01:41)
[2025-07-04] MEDS: Omnipaque 350 MG/ML 100 ML BTL IJ (01:42)
[2025-07-04] MEDS: Normal Saline Flush 10 ML SYR IVP ×3 (01:42→19:53)
[2025-07-04] MEDS: Normal Saline - Diluent 50 ML VIAL IJ (01:43)
[2025-07-04 01:57] LABS: ALT 34 U/L (16-63); AST 114 U/L (15-37); Albumin 3.0 g/dL (3.4-5.0); Alkaline Phosphatase 104 U/L (46-116); Anion Gap 6.2 mmol/L (3-11); BUN 22 mg/dL (7-18); Bilirubin, Total 0.7 mg/dL (0.2-1.0); CO2 29.8 mmol/L (21.0-32.0); Calcium 9.0 mg/dL (8.5-10.1); Chloride 96 mmol/L (98-107); Estimated GFR 63.28 (mL/min/1.73m2); Glucose 114 mg/dL (74-106); Lipase 16 U/L (<78); Magnesium 2.1 mg/dL (1.8-2.4); Potassium 4.0 mmol/L (3.5-5.1); Sodium 132 mmol/L (136-145); Total Protein 6.7 g/dL (6.4-8.2)
[2025-07-04 01:59] LABS: Troponin I 264 ng/L (<or=76)
--- NOTE | 2025-07-04 02:34 | DI.[facility]_ITS ---
PROCEDURE INFORMATION: Exam: CT Head Without Contrast Exam date and time: 07/04/2025 1:35 AM Age: 60 years old Clinical indication: Injury or trauma; Blunt trauma (contusions or hematomas); With loss of consciousness; Not specified; Injury date: 07/04/25; Injury details: Ams/ fall TECHNIQUE: Imaging protocol: Computed tomography of the head without contrast. Radiation optimization: All CT scans at this facility use at least one of these dose optimization techniques: automated exposure control; mA and/or kV adjustment per patient size (includes targeted exams where dose is matched to clinical indication); or iterative reconstruction. COMPARISON: CT HEAD WO 01/12/2021 10:10 PM FINDINGS: Brain: No acute intracranial hemorrhage or mass lesions. No midline shift. Normal feliciano-white differentiation. Cerebral ventricles: No ventriculomegaly. Paranasal sinuses: Visualized sinuses are unremarkable. No fluid levels. Mastoid air cells: Visualized mastoid air cells are well aerated. Bones: Unremarkable. No acute fracture. Soft tissues: Unremarkable. IMPRESSION: No acute intracranial findings. PROCEDURE INFORMATION: Exam: CT Cervical Spine Without Contrast Exam date and time: 07/04/2025 1:35 AM Age: 60 years old Clinical indication: Injury or trauma; Blunt trauma (contusions or hematomas); With loss of consciousness; Not specified; Injury date: 07/04/25; Injury details: Ams/ fall TECHNIQUE: Imaging protocol: Computed tomography of the cervical spine without contrast. Radiation optimization: All CT scans at this facility use at least one of these dose optimization techniques: automated exposure control; mA and/or kV adjustment per patient size (includes targeted exams where dose is matched to clinical indication); or iterative reconstruction. COMPARISON: CT HEAD CERVICAL SPINE WO 09/21/2018 2:14 PM FINDINGS: Limitations: The examination is markedly motion limited. Bones: No acute fracture. Normal alignment. No significant disc bulge or herniation. No severe spinal canal stenosis. No significant neural foraminal narrowing. Lungs: Lung apices are normal. Soft tissues: Unremarkable. IMPRESSION: Markedly motion limited study. No acute cervical spine injury where visualized. Dictated and Authenticated by: Kimi Wolf MD. Orderin Jimmy Garces MD
--- NOTE | 2025-07-04 02:39 | DI.[facility]_ITS ---
PROCEDURE INFORMATION: Exam: CT Chest With Contrast; Diagnostic Exam date and time: 07/04/2025 1:59 AM Age: 60 years old Clinical indication: Injury or trauma; Generalized; Blunt trauma (contusions or hematomas); Injury date: 07/04/25; Injury details: AMS fall; Prior surgery; Surgery date: 6+ months; Surgery type: Appendectomy TECHNIQUE: Imaging protocol: Diagnostic computed tomography of the chest with contrast. Radiation optimization: All CT scans at this facility use at least one of these dose optimization techniques: automated exposure control; mA and/or kV adjustment per patient size (includes targeted exams where dose is matched to clinical indication); or iterative reconstruction. Contrast material: OMNIPAQUE 350; Contrast volume: 100 ml; Contrast route: INTRAVENOUS (IV); COMPARISON: CT CHEST LUNG CANCER SCREEN 05/16/2025 7:42 AM FINDINGS: Limitations: The examination is motion limited. Lungs: There is moderate centrilobular emphysema with an apical predominance. The lungs are clear. Pleural spaces: Unremarkable. No pneumothorax. No pleural effusion. Heart: Unremarkable. No cardiomegaly. No pericardial effusion. Lymph nodes: Unremarkable. No enlarged lymph nodes. Vasculature: Unremarkable. No aortic aneurysm. Bones/joints: There is a displaced right lateral 5th and 6th rib fracture. No other acute fracture or dislocation. Soft tissues: Unremarkable. IMPRESSION: 1. Displaced right lateral 5th and 6th rib fractures. No pneumothorax. 2. No other acute pulmonary findings. PROCEDURE INFORMATION: Exam: CT Abdomen And Pelvis With Contrast Exam date and time: 07/04/2025 1:59 AM Age: 60 years old Clinical indication: Injury or trauma; Generalized; Blunt trauma (contusions or hematomas); Injury date: 07/04/25; Injury details: AMS fall; Prior surgery; Surgery date: 6+ months; Surgery type: Appendectomy TECHNIQUE: Imaging protocol: Computed tomography of the abdomen and pelvis with contrast. Radiation optimization: All CT scans at this facility use at least one of these dose optimization techniques: automated exposure control; mA and/or kV adjustment per patient size (includes targeted exams where dose is matched to clinical indication); or iterative reconstruction. Contrast material: OMNIPAQUE 350; Contrast volume: 100 ml; Contrast route: INTRAVENOUS (IV); COMPARISON: CT renal colic wo 06/22/2019 8:10 AM FINDINGS: Liver: The liver has a normal appearance. Gallbladder and biliary ducts: The gallbladder is unremarkable. No biliary ductal dilatation. Pancreas: The pancreas is atrophic. Spleen: The spleen demonstrates normal size. Adrenal glands: The adrenal glands have a normal appearance. Kidneys and ureters: The kidneys are normal in size. No hydronephrosis. No hydroureter or ureterolithiasis. Stomach and bowel: The bowel demonstrates overall normal caliber and wall thickness. Appendix: The appendix is surgically absent. Intraperitoneal space: Unremarkable. No free air. No significant fluid collection. Vasculature: There are scattered atheromatous calcifications throughout the aorta and iliac arteries. Lymph nodes: Unremarkable. No enlarged lymph nodes. Urinary bladder: The bladder is thin walled and fluid filled. Reproductive: Unremarkable as visualized. Bones/joints: Bones have a normal appearance. No acute fracture or suspicious bone lesion. Soft tissues: Unremarkable. IMPRESSION: No acute intra-abdominal findings. Dictated and Authenticated by: Kimi Wolf MD. Orderin Jimmy Garces MD
--- NOTE | 2025-07-04 02:40 | DI.VRAD_ITS ---
Addendum created by Kimi Wolf MD on 07/04/2025 2:41:26 AM EDT: Please note, there is a displaced medial malleolar fracture which is poorly characterized on this study and is better visualized on the associated three views of the right ankle from the same date. Initial report created on 07/04/2025 2:40:30 AM EDT: PROCEDURE INFORMATION: Exam: XR Right Tibia and Fibula Exam date and time: 07/04/2025 2:18 AM Age: 60 years old Clinical indication: Injury or trauma; Fall; Blunt trauma; Lower leg; Right; Injury date: 07/04/25 TECHNIQUE: Imaging protocol: Radiologic exam of the right tibia and fibula. Views: 2 views. COMPARISON: CR XR knee RT 2V AP,lat 09/21/2018 2:46 PM FINDINGS: Bones/joints: There is a comminuted displaced distal fibular fracture. No other acute fracture or dislocation. No suspicious bony lesions. Soft tissues: Cast material obscures soft tissue detail. IMPRESSION: Comminuted displaced distal fibular fracture. Dictated and Authenticated by: Kimi Wolf MD. Orderin Jimmy Garces MD
--- NOTE | 2025-07-04 02:43 | DI.VRAD_ITS ---
PROCEDURE INFORMATION: Exam: XR Right Ankle Exam date and time: 07/04/2025 2:20 AM Age: 60 years old Clinical indication: Injury or trauma; Fall; Blunt trauma; Ankle; Right; Injury date: 07/04/25; Injury details: Post reduction of fx/dislocation TECHNIQUE: Imaging protocol: Radiologic exam of the right ankle. Views: 3 or more views. COMPARISON: CR XR TIB/FIB RT 07/04/2025 2:18 AM FINDINGS: Bones/joints: There is a comminuted displaced distal fibular fracture. There is a displaced medial malleolar fracture. There is likely a displaced posterior tibial fracture. The distal medial malleolar fracture fragment is displaced approximately 7 mm lateral to the proximal fracture fragment. No other fracture or dislocation. Soft tissues: Unremarkable. IMPRESSION: Trimalleolar fracture, as above. Dictated and Authenticated by: Kimi Wolf MD. Orderin Jimmy Garces MD
[2025-07-04 02:50] LABS: Glucose Negative (Negative)
[2025-07-04 02:59] LABS: Creatine Kinase 9679 U/L (39-308)
[2025-07-04] MEDS: Normal Saline 1,000 ML 200 ML IV (03:00)
[2025-07-04 03:08] LABS: Troponin I 246 ng/L (<or=76)
[2025-07-04 03:09] LABS: Cannabinoids THC Positive (Negative); METHADONE URINE SCREEN Positive (Negative)
[2025-07-04 03:11] LABS: C & S Indicated? No; RBC 0-2 HPF (0-2); WBC Negative HPF (0-5)
[2025-07-04 03:46] LABS: Lab Add On Test DONE
[2025-07-04] MEDS: ACETAMINOPHEN 1,000 MG/100 ML BAG 400 MG IVPB (04:49)
[2025-07-04] MEDS: MORPHine 4 MG/ML SYR IVP ×2 (06:55→10:16)
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
[2025-07-04] MEDS: Methadone Liquid 10 MG/ML 95 MG PO (08:03)
[2025-07-04] MEDS: Normal Saline 1,000 ML 125 ML IV ×2 (10:15→18:23)
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
[2025-07-04] MEDS: Acetaminophen 325 MG TAB 650 MG PO ×2 (11:35→22:07)
[2025-07-04] MEDS: HYDROmorphone 2 MG/ML SYR IVP ×4 (11:55→23:26)
[2025-07-04] MEDS: Omeprazole 20 MG CAPCR 40 MG PO (12:38)
[2025-07-04] MEDS: Gabapentin 600 MG TAB PO ×3 (12:38→22:07)
[2025-07-04] MEDS: Divalproex Sodium 500 MG TAB.ER.24H PO ×2 (12:38→19:52)
[2025-07-04] MEDS: Polyethylene Glycol 3350 17 GM PACKET PO (12:43)
--- NOTE | 2025-07-04 12:46 | PHACLINREV_ITS ---
Pharmacy Admission Review Admission Clinical Review Admission Pharmacy Review: Trimalleolar fracture of right ankle (Acute) Elevated troponin (Acute) Polysubstance abuse (Acute) Rhabdomyolysis (Acute) Fracture of right sixth rib (Acute) Closed fracture dislocation of right ankle (Acute) paroxetine HCl (From Paxil) Adverse Reaction (Intermediate, Unverified 07/04/25 01:12) states starts crawling out of skin Resuscitation Status Full Code Height 5 ft 5 in Weight 91.777 kg Comments Comments/Follow Ups: Watch VS, labs and for med changes (possible renal dose adjustments, VTE prophylaxis postop). Pharmacy Admission Review Renal Dosing Renal Dosing: BUN 22 mg/dL (7-18) H 07/04/25 01:31 Creatinine 1.3 mg/dL (0.70-1.30) 07/04/25 01:31 Medications needing adjustments: Intervened (Crcl ~63.7 mL/min. Recommended gabapentin dosing 600 mg TID with patients current renal function, dose adjusted per provider) Anticoagulation Anticoagulation: Hgb 10.5 g/dL (13.5-17.5) L 07/04/25 01:31 Hct 32.3 % (40.0-50.0) L 07/04/25 01:31 Plt Count 278 10^3/uL (130-400) 07/04/25 01:31 Creatinine 1.3 mg/dL (0.70-1.30) 07/04/25 01:31 DVT Prophylaxis: Reviewed (on hold per provider) Opiate Usage Evaluate Pain Scale/Pains Meds: Reviewed Scheduled Bowel Reg ordered if on Opiates?: No (has PRN miralax ordered) Relevant Labs Relevant Labs: Sodium 132 mmol/L (136-145) L 07/04/25 01:31 Potassium 4.0 mmol/L (3.5-5.1) 07/04/25 01:31 Chloride 96 mmol/L (98-107) L 07/04/25 01:31 Magnesium 2.1 mg/dL (1.8-2.4) 07/04/25 01:31 Electrolytes, C-Reactive P, ESR: Reviewed DM Control DM Control: Glucose 114 mg/dL (74-106) H 07/04/25 01:31 Finger Stick Blood Glucose 81 Finger Stick Blood Glucose 81 Finger Stick Blood Glucose 81 DM Control: Reviewed Insulin Dosing, Diabetic Medication: Home metformin on hold. Sliding scale insulin aspart ordered. Cardiac Review Cardiac Review: Troponin I 246 ng/L (<or=76) H* 07/04/25 02:38 BP, HR, EF%: Reviewed (BP has been normal to high and HR has been low to normal most of admission so far.) QTc Review QTc: Intervened (QTc 581 on EKG done this morning. Patient is on methadone and fluoxetine. Provider held fluoxetine.) IV to PO Switch IV Medications: Reviewed Home Meds Home Med List reviewed: Intervened (MS nursing talked to the patient regarding a bunch of questions I had about the home med list. Using that information and after talking to the provider, the home med list was updated as were the active med orders that were ordered from the original home med list that needed to be updated/adjusted.) Relevent Home Meds Not ordered & why?: atorvastatin- being held for now (rhabdo). dexmethylphenidate- on hold per provider. fluoxetine- being held for now (QTc). metformin- on hold (iohexol given/has sliding scale aspart while here). dulera- inhaler not confirmed but this was the last inhaler filled per the external med history. Patient has symbicort ordered while here as dulera is non- formulary and the patient said they were taking symbicort daily. Current Meds Current Medication Order Review: Intervened (Discontinued duplicate medication orders and talked to provider about med orders that needed adjusting following update of home med list.) Comments Comments/Follow Ups: Watch VS, labs and for med changes (possible renal dose adjustments, VTE prophylaxis postop).
[2025-07-04] MEDS: HYDROmorphone 4 MG TAB 6 MG PO ×2 (13:27→19:52)
[2025-07-04] MEDS: Budesonide/Formoterol 160/4.5 6 GM 60 PUFF INH IH ×2 (14:23→20:36)
[2025-07-04] MEDS: Senna TAB 1 TAB PO (15:09)
[2025-07-04] MEDS: Nicotine 21 MG/24 HR PATCH TD (15:09)
[2025-07-04] MEDS: Methadone Liquid 10 MG/ML 85 MG PO (15:59)
[2025-07-04 17:00] LABS: Troponin I 158 ng/L (<or=76)
[2025-07-04] MEDS: Prazosin 5 MG CAP PO (19:52)
[2025-07-04 20:17] LABS: Creatine Kinase > 10000 U/L (39-308)
[2025-07-05] VITALS (54 sets, daily range): BP systolic 119–189; BP diastolic 73–131; PULSE 80–109; RESP 16–22; TEMP 35.9–36.9; O2SAT 95–98
[2025-07-05] MEDS: HYDROmorphone 4 MG TAB 6 MG PO ×2 (02:03→08:35)
[2025-07-05] MEDS: Normal Saline 1,000 ML 125 ML IV ×3 (02:07→20:11)
[2025-07-05] MEDS: HYDROmorphone 2 MG/ML SYR IVP ×3 (03:29→14:03)
[2025-07-05 06:37] LABS: HCT 29.1 % (40.0-50.0); HGB 9.6 g/dL (13.5-17.5); MCH 25.2 pg (27.0-33.0); MCHC 33.0 % (32.0-36.0); MCV 76 fL (80-95); MPV 9.9 fL (8.0-11.0); Platelet Count 220 10^3/uL (130-400); RBC 3.81 10^6/uL (4.36-5.78); RDW 15.5 % (11.8-14.1); RDW-SD 42.7 fL; WBC 6.34 10^3/uL (4.4-10.8)
[2025-07-05] MEDS: Acetaminophen 325 MG TAB 650 MG PO ×4 (07:34→19:41)
[2025-07-05] MEDS: Polyethylene Glycol 3350 17 GM PACKET PO (07:35)
[2025-07-05] MEDS: Gabapentin 600 MG TAB PO ×3 (07:35→19:40)
[2025-07-05] MEDS: Insulin Aspart 300 UNITS/3 ML PEN SC ×2 (07:35→11:44)
[2025-07-05] MEDS: Omeprazole 20 MG CAPCR 40 MG PO (07:35)
[2025-07-05] MEDS: Senna TAB 1 TAB PO (07:35)
[2025-07-05] MEDS: Divalproex Sodium 500 MG TAB.ER.24H PO ×3 (07:35→19:40)
[2025-07-05] MEDS: Nicotine 21 MG/24 HR PATCH TD (07:35)
[2025-07-05 07:43] LABS: BUN 8 mg/dL (7-18); Calcium 8.0 mg/dL (8.5-10.1); Estimated GFR 98.38 (mL/min/1.73m2); Glucose 148 mg/dL (74-106); Magnesium 2.2 mg/dL (1.8-2.4)
[2025-07-05 07:52] LABS: Lab Add On Test DONE
[2025-07-05 07:53] LABS: Anion Gap 12.9 mmol/L (3-11); CO2 25.1 mmol/L (21.0-32.0); Chloride 103 mmol/L (98-107); Sodium 141 mmol/L (136-145)
[2025-07-05] MEDS: Budesonide/Formoterol 160/4.5 6 GM 60 PUFF INH IH ×2 (08:01→20:22)
[2025-07-05] MEDS: Methadone Liquid 10 MG/ML 95 MG PO (08:34)
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
--- NOTE | 2025-07-05 11:23 | W.PM.PROGNOT ---
Date of Service Date of service: 07/05/25 Time of Service: Assessment and Plan Assessment and plan (1) Closed fracture dislocation of right ankle: Status: Acute Assessment and plan: -likely resulted from seziure (as noted below) -right trimalleolar fracture as noted on Xray -Orthopedic surgery plans to take patient to the OR on Friday, allowing time for resolution of rhabdo, improvement of elevated trop, results from TTE, and allowing therapeutic levels of depakote - now up to 8mg dilaudid every 4 hours as needed pain (2) Seizure disorder: Status: Chronic Assessment and plan: -patient states he is normally compliant with his home depakote -it is presumed that the patient had a seziure due to cocaine and THC which were found in his urine (patient does not remember what happeend over the weekend) -seizure led to rhabdo and elevated trop, rib and ankle fractures -patient given IV depakote in the ED to help get back to therapeutic levels -will continue home PO depakote (3) Elevated troponin: Status: Acute Assessment and plan: -without chest pain or changes in EKG -likely secondary to seizure (as noted above) -trop up to 264, repeat down to 158 -will obtain TTE for surgical clearance (4) Rhabdomyolysis: Status: Acute Assessment and plan: -secondary to presumed seizure (as noted above) -CK 9679 without increase in Cr -up to 10K as of PM 07/04 -repeat on AM 07/04 down to ~6k -will continue NS at 125ml/hr, follow up repeat CK mid afternoon (5) Polysubstance abuse: Status: Acute Assessment and plan: -urine positive for cocaine, THC and methadone -likely cause or contributing factor in presumed seizure (as noted above) (6) Fracture of right sixth rib: Status: Acute Assessment and plan: -likely sustained during presumed seiazure along with right 5th rib fracture and right ankle fracture (as noted above) (7) GERD (gastroesophageal reflux disease): Status: Chronic Assessment and plan: -continue home PPI (8) Opioid dependence: Status: Chronic Assessment and plan: -confirming methadone dose, will continue once confirmed (9) Type 2 diabetes mellitus: Assessment and plan: -on metformin, will hold during hospitalization -SSI, CCD Subjective Subjective Interval history since last seen: Patient states that he is still in pain and appreciates that we are uptitrating his pain regimen. Exam Narrative Exam Narrative: Well-appearing gentleman in pain secondary to right ankle fracture, AOx4, heart regular rhythm, lungs good auscultation bilaterally, abdomen soft, nontender, nondistended Objective Last Vital Signs Temp 97.5 F L 07/05/25 10:56 Pulse 91 H 07/05/25 10:56 Resp 20 07/05/25 10:56 BP 189/96 H 07/05/25 10:56 Pulse Ox 95 07/05/25 10:56 Laboratory Results - last 24 hr 07/04/25 07/04/25 07/05/25 16:20 18:17 05:53 WBC 6.34 RBC 3.81 L Hgb 9.6 L Hct 29.1 L MCV 76 L MCH 25.2 L MCHC 33.0 RDW 15.5 H Plt Count 220 MPV 9.9 Sodium 141 Potassium Chloride 103 Carbon Dioxide 25.1 Anion Gap 12.9 H BUN 8 Creatinine 0.9 Est GFR (CKD-EPI 2020) 98.38 Glucose 148 H Calcium 8.0 L Magnesium 2.2 Creatine Kinase > 45996 H Troponin I 158 H* Add-On Test Request DONE PAWSS Have you Been Recently Intoxicated or Drunk Within the Last 30 days?: No Have you Ever Experienced Previous Episodes of Alcohol Withdrawal?: No Have you ever Experienced Withdrawal Seizures?: No Have you ever Experienced Delirium Tremens(DT)s?: No Have you ever undergone Alcohol Rehabilitation Treatment (i.e, inpt ot outpatient treatment programs)?: No Have you ever Experienced Blackouts?: No Have you ever Combined Alcohol with other Downers within the last 90 days?: No Have you ever Combined Alcohol with any other Substance of Abuse during the last 90 days?: No Positive Blood Alcohol level on Presentation? [PCS.BAL]: No Evidence of Increased Autonomic Activity (i.e. HR>120, tremor, sweating, agitation, nausea)?: No Result: 0 Time Spent with Patient Time Spent with Patient: >50 minutes Time was spent: preparing to see the patient(eg.review tests), obtaining and/or reviewing separately otained hiistory, ordering medications,tests, procedures, referring, communicating with other health neurocritical care physician, indepentently interpreting results, counseling the patient and care coordination
[2025-07-05] MEDS: HYDROmorphone 4 MG TAB 8 MG PO ×4 (11:45→23:24)
[2025-07-05 11:59] LABS: Creatine Kinase 6177 U/L (39-308)
--- NOTE | 2025-07-05 12:09 | PGE_ITS ---
Date of Service Date of service: 07/05/25 Time of Service: 12:46 Assessment and Plan Assessment and plan (1) Closed fracture dislocation of right ankle: Status: Acute (2) Trimalleolar fracture of right ankle: Status: Acute Assessment and plan: Mr. Malcolm is a 60-year-old male with orthopedic consult for right ankle fracture dislocation that happened after fall sustained during an unwitnessed seizure one day ago on 07/04/25. Due to unstable fracture plan is to proceed with ORIF of right ankle, however educated patient based on skin appearance/breakdown that will be assessed once splint is removed Dr. Salcedo may recommend applying a new splint/cast for 1 week+ prior to proceeding with surgery. Patient gives verbal understanding and is okay to proceed with either next step. He had opportunity to have questions answered to his satisfaction. Patient will continue to remain n.p.o. after midnight for expected surgical intervention tomorrow Patient does not wish to continue with ice due to increased sensitivity. Recommend continue to keep elevated. His Luc bandage had started to get folded higher along area of splint. This was adjusted so splint was fully covered with Luc bandage. Repositioned the leg on pillows for elevation. Patient's labs are improving - today's creatine kinase 6177H down from >96748B; last troponin was 07/04/25 16:20 was 158H down from 246H. Will continue to follow and proceed with surgical intervention pending hospitalist team and anesthesia recommendations. Subjective Subjective Interval history since last seen: Mr. Malcolm is a 60-year-old male who is currently hospitalized for rhabdomyolysis, elevated troponin, seizure disorder, polysubstance abuse including recent cocaine use as well as opioid dependence on methadone, right 5th and 6th rib fractures; he is on orthopedic consult for right ankle fracture dislocation that happened after fall sustained during an unwitnessed seizure. Patient continues to report discomfort diffusely along his right lower extremity. He feels that the discomfort is not isolated to his ankle but radiating into his lower leg. Continues to have leg elevated with splint in place. Reports ice pack are causing more discomfort. Denies numbness or tingling. Exam Narrative Exam Narrative: Right lower extremity examination: Splint is in place and dry; no areas of skin breakdown noted along edges of splint. Along area of ankle Lcu bandage has been pulled up and splint material is visible. Small area of abrasion is noted along anterior knee without signs of surrounding erythema, edema or calor. Sensation to light touch is intact along toes and knee. Patient is able to demonstrate gentle flexion and extension of toes including great toe. Calf is soft to palpation without discomfort elicited. Const General: cooperative, comfortable and no acute distress Resp Effort & Inspection: normal respiratory effort and able to speak in complete sentences Objective Last Vital Signs Temp 97.5 F L 07/05/25 10:56 Pulse 85 07/05/25 12:05 Resp 20 07/05/25 10:56 BP 189/96 H 07/05/25 10:56 Pulse Ox 95 07/05/25 10:56 Laboratory Results - last 24 hr 07/04/25 07/04/25 07/05/25 16:20 18:17 05:53 WBC 6.34 RBC 3.81 L Hgb 9.6 L Hct 29.1 L MCV 76 L MCH 25.2 L MCHC 33.0 RDW 15.5 H Plt Count 220 MPV 9.9 Sodium 141 Potassium Chloride 103 Carbon Dioxide 25.1 Anion Gap 12.9 H BUN 8 Creatinine 0.9 Est GFR (CKD-EPI 2020) 98.38 Glucose 148 H Calcium 8.0 L Magnesium 2.2 Creatine Kinase > 66655 H 6177 H Troponin I 158 H* Add-On Test Request DONE PAWSS Have you Been Recently Intoxicated or Drunk Within the Last 30 days?: No Have you Ever Experienced Previous Episodes of Alcohol Withdrawal?: No Have you ever Experienced Withdrawal Seizures?: No Have you ever Experienced Delirium Tremens(DT)s?: No Have you ever undergone Alcohol Rehabilitation Treatment (i.e, inpt ot outpatient treatment programs)?: No Have you ever Experienced Blackouts?: No Have you ever Combined Alcohol with other Downers within the last 90 days?: No Have you ever Combined Alcohol with any other Substance of Abuse during the last 90 days?: No Positive Blood Alcohol level on Presentation? [PCS.BAL]: No Evidence of Increased Autonomic Activity (i.e. HR>120, tremor, sweating, agitation, nausea)?: No Result: 0 Time Spent with Patient Time Spent with Patient: 25-34 minutes Time was spent: preparing to see the patient(eg.review tests), obtaining and/or reviewing separately otained hiistory, referring, communicating with other health emergency care tech, counseling the patient and care coordination
[2025-07-05 12:40] LABS: Potassium 2.6 mmol/L (3.5-5.1)
[2025-07-05] MEDS: guaiFENesin 600 MG TABCR PO ×2 (13:01→19:40)
[2025-07-05] MEDS: POTASSIUM CHLORIDE 20 MEQ/100 ML BAG 50 MEQ IV_INF ×2 (13:03→14:55)
[2025-07-05] MEDS: Methadone Liquid 10 MG/ML 85 MG PO (15:57)
[2025-07-05 16:47] LABS: Anion Gap 9.7 mmol/L (3-11); BUN 6 mg/dL (7-18); CO2 27.3 mmol/L (21.0-32.0); Calcium 8.6 mg/dL (8.5-10.1); Chloride 103 mmol/L (98-107); Estimated GFR 101.95 (mL/min/1.73m2); Glucose 128 mg/dL (74-106); Potassium 3.5 mmol/L (3.5-5.1); Sodium 140 mmol/L (136-145)
--- NOTE | 2025-07-05 17:22 | CHAPLAIN ---
I had a brief visit with Yoan. He said his pain is better controlled now. I explained my role and offered support. I will continue to visit.
[2025-07-05] MEDS: Prazosin 5 MG CAP PO (19:40)
[2025-07-05] MEDS: Normal Saline Flush 10 ML SYR IVP (19:41)
[2025-07-06] VITALS (27 sets, daily range): BP systolic 100–173; BP diastolic 60–98; PULSE 60–99; RESP 11–20; TEMP 35.5–36.6; O2SAT 92–98; BMI 33.6
[2025-07-06] MEDS: HYDROmorphone 4 MG TAB 8 MG PO ×4 (03:52→20:10)
[2025-07-06] MEDS: Normal Saline 1,000 ML 125 ML IV ×3 (03:58→17:47)
[2025-07-06] MEDS: HYDROmorphone 2 MG/ML SYR IVP ×2 (06:37→10:38)
[2025-07-06 07:13] LABS: HCT 30.3 % (40.0-50.0); HGB 9.6 g/dL (13.5-17.5); MCH 25.0 pg (27.0-33.0); MCHC 31.7 % (32.0-36.0); MCV 79 fL (80-95); MPV 9.7 fL (8.0-11.0); Platelet Count 226 10^3/uL (130-400); RBC 3.84 10^6/uL (4.36-5.78); RDW 15.9 % (11.8-14.1); RDW-SD 45.1 fL; WBC 7.24 10^3/uL (4.4-10.8)
[2025-07-06 07:47] LABS: Anion Gap 8.9 mmol/L (3-11); BUN 3 mg/dL (7-18); CO2 27.1 mmol/L (21.0-32.0); Calcium 8.9 mg/dL (8.5-10.1); Chloride 103 mmol/L (98-107); Estimated GFR 106.14 (mL/min/1.73m2); Glucose 101 mg/dL (74-106); Potassium 3.3 mmol/L (3.5-5.1); Sodium 139 mmol/L (136-145)
[2025-07-06] MEDS: Budesonide/Formoterol 160/4.5 6 GM 60 PUFF INH IH ×2 (08:09→19:28)
[2025-07-06] MEDS: Omeprazole 20 MG CAPCR 40 MG PO (08:18)
[2025-07-06] MEDS: Gabapentin 600 MG TAB PO ×2 (08:19→20:11)
[2025-07-06] MEDS: Acetaminophen 325 MG TAB 650 MG PO (08:19)
[2025-07-06] MEDS: Divalproex Sodium 500 MG TAB.ER.24H PO ×2 (08:19→20:11)
[2025-07-06] MEDS: Nicotine 21 MG/24 HR PATCH TD (08:19)
[2025-07-06] MEDS: guaiFENesin 600 MG TABCR PO ×2 (08:19→20:10)
[2025-07-06] MEDS: Methadone Liquid 10 MG/ML 95 MG PO (08:20)
--- NOTE | 2025-07-06 09:25 | PDOC.CMPRO ---
Date of service: 07/06/25 Time of Service: 09:26 Care Management Progress Note Progress Note Text Progress Note Text: Yoan was sitting up in bed when CM met with him. He was waiting to go to surgery and admitted that he was a little nervous. Yoan also stated that he continues to have a lot of pain in his ankle; at the time he rated it at an 8. He reported that he would be getting pain medicine soon however. Yoan lives with his son who is also his caregiver. He plans to return home when discharged, possibly with new home health services, and his son will assist him as needed. Discharge Potential Discharge Needs: PCP F/U Appt and Surgical F/U Appt Anticipated Barriers to Discharge: None Identified Patient/Family Education Needs: Review discharge instructions, discuss Ask Me Three Transportation: RCT Plan: Anticipate Yoan will discharge home with new home health PT, when medically cleared. He will follow up with his community providers and plan of care and will transport via RCT. CM will follow and continue to support discharge planning considerations. Social Determinants of Health Screening Social Determinants of health last assessed in clinic: 07/06/25 Will the Patient Participate in the Screening?: Yes Do you worry about having a steady place to live?: no Problems where you live: no known problems In the past 12 months, have you had to go without electric, gas, oil or water in your home?: no 1. Within the past 12 months, we worried whether our food would run out before we got money to buy more.: Never true 2. Within the past 12 months, the food we bought just didn't last and we didn't have money to get more.: Never true Has lack of transportation kept you from medical appointments or from doing things needed for daily living?: no Has anyone in your life made you feel unsafe or unsupported?: no How hard is it for you to pay for the very basics like food, housing, medical care, and heating? Would you say it is:: Not hard at all Do you want help finding or keeping work or a job?: I do not need or want help If for any reason you need help with day-to-day activities such as bathing, preparing meals, shopping, managing finances, etc., do you get the help you need?: I don?t need any help How often do you feel lonely or isolated from those around you?: Never Do you speak a language other than Hebrew at home?: No Does the patient want assistance with any of the above?: No
--- NOTE | 2025-07-06 11:12 | PGE_ITS ---
Date of Service Date of service: 07/06/25 Time of Service: 11:15 Assessment and Plan Assessment and plan (1) Closed fracture dislocation of right ankle: Status: Acute Assessment and plan: -likely resulted from seziure (as noted below) -right trimalleolar fracture as noted on Xray -Orthopedic surgery plans to take patient to the OR this afternoon, 07/06/2025 - now up to 8mg dilaudid every 4 hours as needed pain (2) Seizure disorder: Status: Chronic Assessment and plan: -patient states he is normally compliant with his home depakote -it is presumed that the patient had a seziure due to cocaine and THC which were found in his urine (patient does not remember what happeend over the weekend) -seizure led to rhabdo and elevated trop, rib and ankle fractures -patient given IV depakote in the ED to help get back to therapeutic levels -will continue home PO depakote (3) Elevated troponin: Status: Acute Assessment and plan: -without chest pain or changes in EKG -likely secondary to seizure (as noted above) -trop up to 264, repeat down to 158 - TTE with EF 60% and no regional wall motion abnormality (4) Rhabdomyolysis: Status: Acute Assessment and plan: -secondary to presumed seizure (as noted above) -CK 9679 without increase in Cr -up to 10K as of PM 07/04 -repeat on AM 07/04 down to ~6k -will continue NS at 125ml/hr, follow up repeat CK mid afternoon (5) Polysubstance abuse: Status: Acute Assessment and plan: -urine positive for cocaine, THC and methadone -likely cause or contributing factor in presumed seizure (as noted above) (6) Fracture of right sixth rib: Status: Acute Assessment and plan: -likely sustained during presumed seiazure along with right 5th rib fracture and right ankle fracture (as noted above) (7) GERD (gastroesophageal reflux disease): Status: Chronic Assessment and plan: -continue home PPI (8) Opioid dependence: Status: Chronic Assessment and plan: -confirming methadone dose, will continue once confirmed (9) Type 2 diabetes mellitus: Assessment and plan: -on metformin, will hold during hospitalization -SSI, CCD Subjective Subjective Interval history since last seen: Patient states that he is doing well and appreciates that his pain regimen is beginning to work. He understands he is going to surgery this afternoon for his right ankle and has no other complaints concerns at this time. Exam Narrative Exam Narrative: Well-appearing gentleman in pain secondary to right ankle fracture, AOx4, heart regular rhythm, lungs good auscultation bilaterally, abdomen soft, nontender, nondistended Objective Last Vital Signs Temp 97.9 F 07/06/25 07:54 Pulse 99 H 07/06/25 07:54 Resp 16 07/06/25 07:54 BP 139/98 H 07/06/25 07:54 Pulse Ox 97 07/06/25 07:54 Laboratory Results - last 24 hr 07/05/25 07/05/25 07/06/25 05:53 15:37 06:12 WBC 7.24 RBC 3.84 L Hgb 9.6 L Hct 30.3 L MCV 79 L MCH 25.0 L MCHC 31.7 L RDW 15.9 H Plt Count 226 MPV 9.7 Sodium 140 139 Potassium 2.6 L* D 3.5 3.3 L Chloride 103 103 Carbon Dioxide 27.3 27.1 Anion Gap 9.7 8.9 BUN 6 L 3 L Creatinine 0.8 0.7 Est GFR (CKD-EPI 2020) 101.95 106.14 Glucose 128 H 101 Calcium 8.6 8.9 Creatine Kinase 6177 H PAWSS Have you Been Recently Intoxicated or Drunk Within the Last 30 days?: No Have you Ever Experienced Previous Episodes of Alcohol Withdrawal?: No Have you ever Experienced Withdrawal Seizures?: No Have you ever Experienced Delirium Tremens(DT)s?: No Have you ever undergone Alcohol Rehabilitation Treatment (i.e, inpt ot outpatient treatment programs)?: No Have you ever Experienced Blackouts?: No Have you ever Combined Alcohol with other Downers within the last 90 days?: No Have you ever Combined Alcohol with any other Substance of Abuse during the last 90 days?: No Positive Blood Alcohol level on Presentation? [PCS.BAL]: No Evidence of Increased Autonomic Activity (i.e. HR>120, tremor, sweating, agitation, nausea)?: No Result: 0 Time Spent with Patient Time Spent with Patient: >50 minutes Time was spent: preparing to see the patient(eg.review tests), obtaining and/or reviewing separately otained hiistory, ordering medications,tests, procedures, referring, communicating with other health career orientation teacher, indepentently interpreting results, counseling the patient and care coordination
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
[2025-07-06] MEDS: Albuterol/Ipratropium 3 ML UPD VIAL UPD (12:53)
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
--- NOTE | 2025-07-06 13:30 | DI.RAD_ITS ---
Exam(s) XR ANKLE RT 2V EXAM: XR ANKLE RT 2V CLINICAL HISTORY: Closed fracture dislocation of right ankle. TECHNIQUE: 2D and realtime digital imaging was performed. COMPARISON: CR,XR XR ANKLE RT COMPLETE from 07/04/2025 FINDINGS: Hard copy images show placement of 2 screws through the medial malleolus and a fixation plate along the lateral malleolus. The fracture alignment is anatomic. Please see procedure note for details. Fluoro time: 30.4seconds RADIATION DOSE DELIVERED: jorge luis Bruce=1.18 mGy
[2025-07-06] MEDS: Lactated Ringers 1,000 ML 125 ML IV (14:29)
[2025-07-06] MEDS: ceFAZolin 2 GM/50 ML BAG 100 GM (14:40)
[2025-07-06] MEDS: TRANEXAMIC ACID/SOD. CHL. 1,000 MG/100 ML BAG 600 MG (14:50)
[2025-07-06] MEDS: Bupivacaine 0.5% Pres-Free W/EPI 30 ML VIAL (15:07)
--- NOTE | 2025-07-06 15:16 | W.ANESNERVE ---
Nerve Block Single Injection Procedure Date and Time Date Performed: 07/06/25 Procedure Start: 13:49 Location Where Procedure Performed Procedure Location: PACU Reason Performed: Postoperative Analgesia Requesting Provider: Fabrice Salcedo Timeout Performed Timeout Performed: Yes Monitoring Used ECG, Blood Pressure, SpO2 and See EMR for corresponding vital signs Sterility Sterility: Hand Hygiene, Surgical Cap, Surgical Mask, Sterile Gloves, Eye Protection and Chlorhexidine Sedation Given During Procedure Sedation Given (Indicate Dose Given): Versed IV Dose:: 5mg IVP Patient Mental Status Patient Mental Status: Sedate with meaningful communication Nerve Block 1st Nerve Block: Laterality: Right Block Type: Adductor Canal Ultrasound Image Saved?: Yes Needle / Catheter Used: 100mm SonoPlex II Local Anesthetic Bolus (Indicate Dose Given): Lidocaine used for local infiltration of skin, Injected in 3-5ml increments after negative blood aspiration, Bupivacaine 0.5% Dose:: 10cc/0.5%n (50mg) and Exparel Dose:: 10cc/1.3% (133mg) Additives (Indicate Dose Given): Epinephrine to make 1:200,000 (5mcg/ml) Dose:: 50mcg (added to 0.5% Bupiv) Ultrasound: Sterile probe cover and gel used Nerve Stimulator: Not Used Paresthesia: None Procedure Tolerated: No Complications and Patient tolerated well Procedure Outcome: Successful Procedure Comment: Performed by JOHN Holloway with direct supervision. Purvi Mckeon CRNA Performed By: Petr Mckeon 2nd Nerve Block: Laterality: Right Block Type: Popliteal Sciatic Ultrasound Image Saved?: Yes Needle / Catheter Used: 80mm SonoPlex II Local Anesthetic Bolus (Indicate Dose Given): Lidocaine used for local infiltration of skin, Injected in 3-5ml increments after negative blood aspiration and Bupivacaine 0.5% Dose:: 10cc/0.5% (50mg) Additives (Indicate Dose Given): Epinephrine to make 1:200,000 (5mcg/ml) Dose:: 50mcg Ultrasound: Sterile probe cover and gel used Nerve Stimulator: Not Used Paresthesia: None Procedure Tolerated: No Complications and Patient tolerated well Procedure Outcome: Successful Performed By: Petr Mckeon
--- NOTE | 2025-07-06 15:19 | PHA.REVIEW2 ---
Pharmacy Admission Review Admission Clinical Review Admission Pharmacy Review: Trimalleolar fracture of right ankle (Acute) Elevated troponin (Acute) Polysubstance abuse (Acute) Rhabdomyolysis (Acute) Fracture of right sixth rib (Acute) Closed fracture dislocation of right ankle (Acute) paroxetine HCl (From Paxil) Adverse Reaction (Intermediate, Unverified 07/04/25 01:12) states starts crawling out of skin Resuscitation Status Full Code Height 5 ft 5 in Weight 91.777 kg Pharmacy Admission Review Renal Dosing Renal Dosing: BUN 3 mg/dL (7-18) L 07/06/25 06:12 Creatinine 0.7 mg/dL (0.70-1.30) 07/06/25 06:12 Medications needing adjustments: Reviewed (CrCl 118.3 mL/min) List of meds needing interventions: Current medications are okay Anticoagulation Anticoagulation: Hgb 9.6 g/dL (13.5-17.5) L 07/06/25 06:12 Hct 30.3 % (40.0-50.0) L 07/06/25 06:12 Plt Count 226 10^3/uL (130-400) 07/06/25 06:12 Creatinine 0.7 mg/dL (0.70-1.30) 07/06/25 06:12 DVT Prophylaxis: Reviewed (none at this time - surgery today) Opiate Usage Evaluate Pain Scale/Pains Meds: Reviewed (hydromorphone 8mg PO q4h IJEOMA + hydromorphone 2mg IVP q4h PRN - 4mg/24hrs + methadone 95mg qAM and 85mg @1400) Relevant Labs Relevant Labs: Sodium 139 mmol/L (136-145) 07/06/25 06:12 Potassium 3.3 mmol/L (3.5-5.1) L 07/06/25 06:12 Chloride 103 mmol/L (98-107) 07/06/25 06:12 Magnesium 2.2 mg/dL (1.8-2.4) 07/05/25 05:53 Cardiac Review Cardiac Review: Troponin I 158 ng/L (<or=76) H* 07/04/25 16:20
--- NOTE | 2025-07-06 16:54 | W.ANESPOSTOP ---
Postoperative Evaluation Date, Time and Location Date Performed: 07/06/25 Time Performed: 16:54 Patient Location: PACU Vital Signs Most Recent Imported Vital Signs: Most Recent Vital Signs Temp Pulse Resp BP Pulse Ox 36.4 C L 63 14 155/82 H 93 07/06/25 16:47 07/06/25 16:50 07/06/25 16:50 07/06/25 16:50 07/06/25 16:50 Pain Score Most Recent Pain Score: Most Recent Pain Score Pain Level 0 07/06/25 16:47 Assessment Mental Status: Awake (Alert & Oriented to Patient Baseline) Airway and Respiratory Function: Patent airway with normal (patient baseline) respiratory exam Cardiovascular Function: Hemodynamically Stable Hydration Status: Adequately Hydrated Nausea & Vomiting: No Nausea or Vomiting Pain: Pt. Denies Any Pain Peripheral Nerve Block: Regional nerve block not resolved at time of post operative discharge
--- NOTE | 2025-07-06 17:20 | ROE_ITS ---
Operative Note Operative Note PRE-OP DIAGNOSIS: Right Trimalleolar Ankle Fracture POST-OP DIAGNOSIS: same PROCEDURE: Open Reduction and Internal Fixation of RIGHT Ankle - Lateral and Medial Malleolus SURGEON: Fabrice Salcedo [employer] SUPERVISOR: Tavares Garibay ANESTHESIA TYPE: General LMA/ETT Refer to Anesthesia Record ESTIMATED BLOOD LOSS: 50 PATHOLOGY: none sent TOURNIQUET TIME: 0 COMPLICATIONS: None Patient was transported to: PACU Patient's condition: stable Indications: Mikey who presented to the Emergency Department after a fall. X-rays confirmed the diagnosis of an ankle fracture-dislocation, reduced in the ED. I reviewed the possible treatment options and given the fracture, I recommended operative fixation. I discussed the technical details of the surgery. I reviewed the risks such as bleeding, infection, pain, stiffness, malunion, nonunion, hardware prominence, hardware faiilure, malrotation, damage to nerves and vessels, blood clot. Despite these risks, he agreed to proceed. Findings: There was a grossly unstable trimalleolar ankle fracture. There was a small area of skin where the edge of the medial tibia was prominent while it was dislocated which appeared threatened but without defect. No blisters. Skin had wrinkles. Medial and lateral malleolus were fixed with screws and plate. Procedure Description: Kaushal was greeted in the preoperative area. Consent was reviewed and signed. A popliteal as well as adductor canal block was administered in the PACU. He was then taken to the operating room and transferred to the operating room table. General anesthesia was administered. The right leg was placed onto a bone foam ramp. All bony prominences were well padded. Arms were placed out to the side, padded, and secured. A single dose of TXA, 1 gram, was then administered IV. Prophylactic antibiotics, Cefazolin 2 grams, was given for prophylactic antibiotics. A timeout was performed for safe surgery. The right leg was prepped with Chloraprep. The leg was draped with a stockinette and extremity drape. The area of skin overlying the anteromedial tibia was threatened but not open. There is no blistering. The skin also had wrinkles and thus was deemed safe for proceeding with surgical fixation. A curved anteromedial incision was then made over the anteromedial aspect of the ankle just distal anterior to the area of threatened skin. This was taken down sharply the skin and deep dissection clearly showed the fracture. Fracture mentum was released. There was a portion of the deltoid ligament which was entrapped in the fracture. The deltoid ligament periosteum was elevated around the fracture edges for better visualization. The fracture was opened up and the joint was then irrigated. The talus and tibial surfaces were visualized and showed no signs of defect and there was no loose bodies. Attention was then turned to the lateral side. A longitudinal incision was made along the fibula. This is taken out sharply through the skin. Deeper dissection was carried down with blunt dissection with scissors. There is no crossing or vascular structures. Starting distally, periosteum was incised and a kay elevator was utilized to elevate off periosteum from the lateral aspect of the fibula. The fracture was identified as a primary long oblique fracture. This was reduced and clamped into position. I then placed a 3.5 mm lag screw proximally. A second screws placed distally. Both of the screws were placed utilizing lag technique. With the second screw there is excellent fixation of the distal oblique fracture line. There is a small posterior split which was not addressed nor included in this fixation. I then contoured an 8 hole one third tubular plate to fit against the lateral fibula. This was position and confirmed to be adequately contoured and with appropriate length based on fluoroscopy. With the plate held in position, I placed a single 3.5 mm cortex screw just distal to the fracture. This was used to bring the plate down to the bone. Small adjustments of the plate were made and confirmed once again with direct visualization and with fluoroscopy. A 3.5 mm nonlocking screw was placed proximal to the fracture line securing the proximal portion of the plate to the fibula. 2 locking screws were then placed in the distal aspect of the plate in unicortical fashion as did not penetrate the ankle joint. 2 additional 3.5 mm nonlocking screws were placed proximally with excellent fixation. X-rays showed that the most proximal hole in the distal aspect was slightly long at the level of the tibiotalar joint. This was switched to a locking screw in unicortical fashion. Attention was then turned to the medial side again. The medial fragment was reduced keying in the anterior surface at the shoulder of the tibiotalar joint. This was secured with 2 K wires from the 4.0 mm cannulated screw system. With these in position x-rays showed appropriate alignment. 2 screws then placed with excellent compression. Final x-rays were obtained. The deltoid ligament was reapproximated with a 0 Vicryl in the medial wound. The deep fascia was closed with 0 Vicryl laterally covering the plate and screws. The next layer was closed with 3-0 Vicryl. The skin was closed with 3- 0 nylon in interrupted fashion. The wounds were dressed with Xeroform, 4 x 4, ABD and Webril. A short leg splint was placed. At the end of the case, all counts were correct. Kaushal tolerated the procedure well without known complication and was taken to the PACU for recovery. Physical therapy will start post-operatively, nonweightbearing with a splint. Anticoagulation will start tomorrow. Date of Procedure: 07/06/25
[2025-07-06] MEDS: ceFAZolin 1 GM/50 ML BAG IVPB (17:59)
[2025-07-06] MEDS: Prazosin 5 MG CAP PO (20:10)
[2025-07-06] MEDS: ALPRAZolam 0.5 MG TAB 2 MG PO (20:27)
[2025-07-06] MEDS: Methadone Liquid 10 MG/ML 85 MG PO (20:49)
[2025-07-06] MEDS: Insulin Aspart 300 UNITS/3 ML PEN SC (23:24)
[2025-07-07] MEDS: ceFAZolin 1 GM/50 ML BAG IVPB ×2 (01:36→09:28)
[2025-07-07] MEDS: Normal Saline 1,000 ML 125 ML IV ×3 (02:31→21:58)
[2025-07-07 02:33] VITALS: BP 127/73; PULSE 70; RESP 20; TEMP 36.6; O2SAT 95
[2025-07-07] MEDS: HYDROmorphone 4 MG TAB 8 MG PO ×5 (03:35→20:05)
[2025-07-07 07:51] VITALS: BP 136/81; PULSE 73; RESP 16; TEMP 36.8; O2SAT 98
[2025-07-07] MEDS: guaiFENesin 600 MG TABCR PO ×2 (08:29→19:52)
[2025-07-07] MEDS: Divalproex Sodium 500 MG TAB.ER.24H PO ×3 (08:29→19:52)
[2025-07-07] MEDS: Omeprazole 20 MG CAPCR 40 MG PO (08:29)
[2025-07-07] MEDS: Methadone Liquid 10 MG/ML 95 MG PO (08:29)
[2025-07-07] MEDS: Gabapentin 600 MG TAB PO ×3 (08:29→19:52)
[2025-07-07] MEDS: Nicotine 21 MG/24 HR PATCH TD (08:31)
[2025-07-07] MEDS: Normal Saline Flush 10 ML SYR IVP ×3 (08:32→19:52)
[2025-07-07] MEDS: Budesonide/Formoterol 160/4.5 6 GM 60 PUFF INH IH ×2 (08:46→19:20)
--- NOTE | 2025-07-07 10:23 | CMPROGNOTE_ITS ---
Date of service: 07/07/25 Time of Service: 10:23 Care Management Progress Note Progress Note Text Progress Note Text: Yoan was awake and sitting up in a chair when CM met with him. He reports to be doing well overall, though he notes that the nerve block is beginning to wear off and his pain is increasing, currently 8/10. Nursing was notified. Yoan is planning on returning home once he is medically ready. He anticipates support from his son following discharge and is agreeable to [facility]. While pt does not believe he will require a lift assist to access his apartment on discharge, he is open to the option if needed. Discharge Potential Discharge Needs: PCP F/U Appt and Other (Ortho) Anticipated Barriers to Discharge: None Identified Patient/Family Education Needs: Review discharge instructions, discuss Ask Me Three Transportation: Private vehicle Plan: Home with PT, will issue FWW prior to discharge. Will likely require lift assist into home upon discharge (per PT.) Anticipate. Kaushal will discharge home with [facility] once medically ready for discharge. He will follow up with community providers and continue per his discharge plan of care. CM will follow. Social Determinants of Health Screening Social Determinants of health last assessed in clinic: 07/07/25 Will the Patient Participate in the Screening?: Yes Do you worry about having a steady place to live?: no Problems where you live: no known problems In the past 12 months, have you had to go without electric, gas, oil or water in your home?: no 1. Within the past 12 months, we worried whether our food would run out before we got money to buy more.: Never true 2. Within the past 12 months, the food we bought just didn't last and we didn't have money to get more.: Never true Has lack of transportation kept you from medical appointments or from doing thin gs needed for daily living?: no Has anyone in your life made you feel unsafe or unsupported?: no How hard is it for you to pay for the very basics like food, housing, medical care, and heating? Would you say it is:: Not hard at all Do you want help finding or keeping work or a job?: I do not need or want help If for any reason you need help with day-to-day activities such as bathing, preparing meals, shopping, managing finances, etc., do you get the help you need?: I don?t need any help How often do you feel lonely or isolated from those around you?: Never Do you speak a language other than Indonesian at home?: No Does the patient want assistance with any of the above?: No
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
[2025-07-07 11:24] VITALS: BP 167/89; PULSE 62; RESP 16; TEMP 36.7; O2SAT 98
[2025-07-07] MEDS: ALPRAZolam 0.5 MG TAB 2 MG PO (12:33)
--- NOTE | 2025-07-07 15:02 | PGE_ITS ---
Date of Service Date of service: 07/07/25 Time of Service: 15:02 Assessment and Plan Assessment and plan (1) Closed fracture dislocation of right ankle: Status: Acute Assessment and plan: -likely resulted from seziure (as noted below) -right trimalleolar fracture as noted on Xray -Orthopedic surgery plans to take patient to the OR this afternoon, 07/06/2025 - now up to 8mg dilaudid every 4 hours as needed pain 07/07/25 S/P Surgical correction. (2) Seizure disorder: Status: Chronic Assessment and plan: -patient states he is normally compliant with his home depakote -it is presumed that the patient had a seziure due to cocaine and THC which were found in his urine (patient does not remember what happeend over the weekend) -seizure led to rhabdo and elevated trop, rib and ankle fractures -patient given IV depakote in the ED to help get back to therapeutic levels -will continue home PO depakote 07/07/15 Depakote ER 500mg po tid. Pt has asked for benzo's twice 2/2 auras. Will add prn Depakote level will be ordered but I believe these are send outs (3) Elevated troponin: Status: Acute Assessment and plan: -without chest pain or changes in EKG -likely secondary to seizure (as noted above) -trop up to 264, repeat down to 158 - TTE with EF 60% and no regional wall motion abnormality 07/07/25 264->246->158 No symptoms (4) Rhabdomyolysis: Status: Acute Assessment and plan: -secondary to presumed seizure (as noted above) -CK 9679 without increase in Cr -up to 10K as of PM 07/04 -repeat on AM 07/04 down to ~6k -will continue NS at 125ml/hr, follow up repeat CK mid afternoon 07/07/25 9679->10,000->6177 CK values Will check in am. Pt still on NS@125/hour (5) Polysubstance abuse: Status: Acute Assessment and plan: -urine positive for cocaine, THC and methadone -likely cause or contributing factor in presumed seizure (as noted above) (6) Fracture of right sixth rib: Status: Acute Assessment and plan: -likely sustained during presumed seiazure along with right 5th rib fracture and right ankle fracture (as noted above) (7) GERD (gastroesophageal reflux disease): Status: Chronic Assessment and plan: -continue home PPI (8) Opioid dependence: Status: Chronic Assessment and plan: -confirming methadone dose, will continue once confirmed (9) Type 2 diabetes mellitus: Assessment and plan: -on metformin, will hold during hospitalization -SSI, CCD Subjective Subjective Interval history since last seen: Pt in chair resting comfortably Exam Narrative Exam Narrative: NCAT MMM NO RESPIRATORY DISTRESS NO AMU RLE BANDAGED TO [place] Objective Last Vital Signs Temp 36.7 C 07/07/25 11:24 Pulse 62 07/07/25 11:24 Resp 16 07/07/25 11:24 BP 167/89 H 07/07/25 11:24 Pulse Ox 98 07/07/25 11:24 PAWSS Have you Been Recently Intoxicated or Drunk Within the Last 30 days?: No Have you Ever Experienced Previous Episodes of Alcohol Withdrawal?: No Have you ever Experienced Withdrawal Seizures?: No Have you ever Experienced Delirium Tremens(DT)s?: No Have you ever undergone Alcohol Rehabilitation Treatment (i.e, inpt ot outpatient treatment programs)?: No Have you ever Experienced Blackouts?: No Have you ever Combined Alcohol with other Downers within the last 90 days?: No Have you ever Combined Alcohol with any other Substance of Abuse during the last 90 days?: No Positive Blood Alcohol level on Presentation? [PCS.BAL]: No Evidence of Increased Autonomic Activity (i.e. HR>120, tremor, sweating, agitation, nausea)?: No Result: 0 Time Spent with Patient Time Spent with Patient: 25-34 minutes Time was spent: preparing to see the patient(eg.review tests), obtaining and/or reviewing separately otained hiistory, ordering medications,tests, procedures, referring, communicating with other health college and career counselor, indepentently interpreting results, counseling the patient and care coordination
--- NOTE | 2025-07-07 15:03 | PT.INTREAT ---
PT Notes Visit Reasons: Right Ankle Fracture, Seizure, Rhabdo Date: 07/07/2025 PRECAUTIONS: Fall. Standard. NWB RLE, Activity as tolerated. SUBJECTIVE: Pt in recliner when approached for therapy this afternoon, pt agreed to participating with therapy session. ? VITALS: monitored by nursing Therapeutic Activities 61045: Direct one-on-one instruction in dynamic activities to improve functional performance. ?? BED MOBILITY/TRANSFERS? Supine-sit: ? ?CGA ? Sit-supine: ? ?CGA? Sit-stand: ? ?CGA ? Stand-sit: ?? CGA? Provided skilled cues and instruction on performance and technique throughout. ? Therapeutic Exercises 88222: Direct one-on-one instruction in therapeutic exercises to develop strength, endurance, range of motion and flexibility. Exercises: BLE SLR [id number] LE abduction/adductio 08p5gte Heel slides 25y0ryg BUE horizontal abduction/adduction 91u1emc BUE abduction/adduction 30p1sef Elbow flexion 53r2dmz Forearm pronation/supination 75w9itp Wrist flexion/extension 09k6fuh ? Provided skilled instruction in proper exercise performance Provided skilled manual cues to facilitate proper muscle recruitment and/or form: Neuromuscular Re-education 88564: Activities that facilitate re-education of movement balance, posture, coordination, and proprioception or kinesthetic sense, requiring skilled tactile and verbal cues Exercises/techniques: ? Static LLE SLS 3mins x1, LLE SLS 6mins x1? ASSESSMENT:?Pt tolerating activity well, did not report chest discomfort during session, pt requested to stay in recliner after session. PLAN: Continue with balance training, global strengthening and general conditioning for improved safety, mobility and activity tolerance until pt is ready for DC. TREATMENT CODE/TIME: 55409u1, 92918j2, 53151e1 30mins (2:00-2:30pm)
[2025-07-07] MEDS: Methadone Liquid 10 MG/ML 85 MG PO (16:30)
--- NOTE | 2025-07-07 17:58 | PGE_ITS ---
Date of Service Date of service: 07/07/25 Time of Service: 07:45 Assessment and Plan Assessment and plan (1) Trimalleolar fracture of right ankle: Status: Acute Assessment and plan: Yoan is a 60-year-old who is now status post ORIF of a right trimalleolar ankle fracture. He seems to be doing well. We will mobilize physical therapy today. Nonweightbearing right lower extremity. He should keep the leg elevated is much as possible with the foot higher than the knee. Splint will stay on for 2 weeks. I will see him back in the office in 2 weeks for x-rays and splint re moval, wound check, suture removal, and likely placement into a fracture walker boot. He may DC when considered stable by the medicine team and physical therapy. Subjective Subjective Interval history since last seen: Yoan is postop day #1 status post ORIF of a right trimalleolar ankle fracture. He reports be doing well. The pain has been well-controlled. He has been keeping the leg elevated. He denies any chest pain shortness of breath. He has been able to move his toes. Exam Narrative Exam Narrative: Laying in the hospital bed. No acute distress. Right lower extremity shows clean, dry, intact dressings with a splint. He is able to demonstrate active toe extension and flexion endorse sensation about the deep and superficial peroneal nerve and tibial nerve. No pain with rotation of the right leg. Objective Last Vital Signs Temp 36.7 C 07/07/25 11:24 Pulse 62 07/07/25 11:24 Resp 16 07/07/25 11:24 BP 167/89 H 07/07/25 11:24 Pulse Ox 98 07/07/25 11:24 PAWSS Have you Been Recently Intoxicated or Drunk Within the Last 30 days?: No Have you Ever Experienced Previous Episodes of Alcohol Withdrawal?: No Have you ever Experienced Withdrawal Seizures?: No Have you ever Experienced Delirium Tremens(DT)s?: No Have you ever undergone Alcohol Rehabilitation Treatment (i.e, inpt ot outpatient treatment programs)?: No Have you ever Experienced Blackouts?: No Have you ever Combined Alcohol with other Downers within the last 90 days?: No Have you ever Combined Alcohol with any other Substance of Abuse during the last 90 days?: No Positive Blood Alcohol level on Presentation? [PCS.BAL]: No Evidence of Increased Autonomic Activity (i.e. HR>120, tremor, sweating, agitation, nausea)?: No Result: 0 Time Spent with Patient Time Spent with Patient: <25 minutes Time was spent: preparing to see the patient(eg.review tests), obtaining and/or reviewing separately otained hiistory and ordering medications,tests, procedures
[2025-07-07 19:44] VITALS: BP 135/79; PULSE 79; RESP 16; TEMP 36.4; O2SAT 94
[2025-07-07] MEDS: Prazosin 5 MG CAP PO (19:52)
[2025-07-08] MEDS: HYDROmorphone 4 MG TAB 8 MG PO ×6 (00:16→20:05)
[2025-07-08] MEDS: Normal Saline 1,000 ML 125 ML IV (04:25)
[2025-07-08] MEDS: Omeprazole 20 MG CAPCR 40 MG PO (06:19)
[2025-07-08 06:40] LABS: Abs Immature Grans 0.13 10^3/uL (0.0-0.06); HCT 27.9 % (40.0-50.0); HGB 8.6 g/dL (13.5-17.5); Immature Grans % 1.9 %; MCH 24.7 pg (27.0-33.0); MCHC 30.8 % (32.0-36.0); MCV 80 fL (80-95); MPV 9.5 fL (8.0-11.0); Platelet Count 233 10^3/uL (130-400); RBC 3.48 10^6/uL (4.36-5.78); RDW 16.5 % (11.8-14.1); RDW-SD 47.4 fL; WBC 6.77 10^3/uL (4.4-10.8)
[2025-07-08 07:14] LABS: ALT 21 U/L (16-63); AST 32 U/L (15-37); Albumin 2.1 g/dL (3.4-5.0); Alkaline Phosphatase 75 U/L (46-116); Anion Gap 9.5 mmol/L (3-11); BUN 18 mg/dL (7-18); Bilirubin, Total 0.2 mg/dL (0.2-1.0); CO2 27.5 mmol/L (21.0-32.0); Calcium 8.5 mg/dL (8.5-10.1); Chloride 104 mmol/L (98-107); Estimated GFR 106.14 (mL/min/1.73m2); Glucose 85 mg/dL (74-106); Potassium 3.7 mmol/L (3.5-5.1); Sodium 141 mmol/L (136-145); Total Protein 6.1 g/dL (6.4-8.2)
[2025-07-08 07:44] LABS: Creatine Kinase 807 U/L (39-308)
[2025-07-08 07:53] VITALS: BP 158/95; PULSE 77; RESP 16; TEMP 37.1; O2SAT 98
[2025-07-08] MEDS: Budesonide/Formoterol 160/4.5 6 GM 60 PUFF INH IH ×2 (08:22→19:56)
[2025-07-08] MEDS: Nicotine 21 MG/24 HR PATCH TD (08:28)
[2025-07-08] MEDS: Gabapentin 600 MG TAB PO ×3 (08:28→20:06)
[2025-07-08] MEDS: guaiFENesin 600 MG TABCR PO ×2 (08:29→20:13)
[2025-07-08] MEDS: Methadone Liquid 10 MG/ML 95 MG PO (08:29)
[2025-07-08] MEDS: Divalproex Sodium 500 MG TAB.ER.24H PO ×3 (08:30→20:05)
[2025-07-08] MEDS: Normal Saline Flush 10 ML SYR IVP ×2 (08:30→20:06)
--- NOTE | 2025-07-08 08:36 | PDOC.CMPRO ---
Date of service: 07/08/25 Time of Service: 08:36 Care Management Progress Note Progress Note Text Progress Note Text: Yoan was awake and sitting up in a chair when CM met with him. He continues to report that he is doing well overall and is eager to discharge home and is hopeful it will be today or tomorrow as he misses being home. He anticipates support from his son following discharge and is agreeable to [facility] PT. He is agreeable to the recommendation of a lift assist when he is discharge. Discharge Potential Discharge Needs: PCP F/U Appt and Surgical F/U Appt Anticipated Barriers to Discharge: None Identified Patient/Family Education Needs: Review discharge instructions, discuss Ask Me Three Transportation: RCT (With lift assist) RCT Transportation: Wheel chair van Plan: Home with New PT, will issue FWW prior to discharge. Will likely require lift assist into home upon discharge (per PT.) Anticipate. Kaushal will discharge home with New [facility] PT once medically ready for discharge. He will need RCT w/c van and a lift assist. He will follow up with community providers and continue per his discharge plan of care. CM will follow. Social Determinants of Health Screening Social Determinants of health last assessed in clinic: 07/08/25 Will the Patient Participate in the Screening?: Yes Do you worry about having a steady place to live?: no Problems where you live: no known problems In the past 12 months, have you had to go without electric, gas, oil or water in your home?: no 1. Within the past 12 months, we worried whether our food would run out before we got money to buy more.: Never true 2. Within the past 12 months, the food we bought just didn't last and we didn't have money to get more.: Never true Has lack of transportation kept you from medical appointments or from doing things needed for daily living?: no Has anyone in your life made you feel unsafe or unsupported?: no How hard is it for you to pay for the very basics like food, housing, medical care, and heating? Would you say it is:: Not hard at all Do you want help finding or keeping work or a job?: I do not need or want help If for any reason you need help with day-to-day activities such as bathing, preparing meals, shopping, managing finances, etc., do you get the help you need?: I don?t need any help How often do you feel lonely or isolated from those around you?: Never Do you speak a language other than [place] at home?: No Does the patient want assistance with any of the above?: No
--- NOTE | 2025-07-08 09:43 | PT.INTREAT ---
PT Notes Visit Reasons: Right Ankle Fracture, Seizure, Rhabdo Inpatient Physical Therapy Treatment Note [facility] Date: 07/08/25 PRECAUTIONS: NWB RLE SUBJECTIVE: Yoan is agreeable to PT intervention. Had pain meds approx 20 minutes prior to session. Rating pain as 7/10. Estimates 25' ambulation to get to the bathroom in his apartment OBJECTIVE: ? Therapeutic Activities (87255g1): Direct one-on-one instruction in dynamic activities to improve functional performance. ? BED MOBILITY/TRANSFERS? Supine-sit: supervision ? Sit-supine: supervision ? Sit-stand: supervision? from recliner and from bed at standard height? Stand-sit: supervision, with need for minimal cues for hand placement ? Bed-Chair: supervision with FWW ,NWB RLE ? Chair-bed: supervision with FWW, NWB RLE Provided skilled cues and instruction on performance and technique throughout. Instructed in sit-stand transfers x3, with minimal cues for technique, good carry over and good safety awareness Fitted with FWW, which is required for safe ambulation to maintain NWB status GAIT? Assistive Device: FWW? Weight bearing: NWB RLE Assist: SBA initially, progressing to supervision only as patient demonstrates good safety awareness and balance ? Distance:? 25'x1, 6'x2 ? Deviation: MIRANDA after 25' ambulation ? STAIRS: unable ? Therapeutic Exercises (96879d4): Direct one-on-one instruction in therapeutic exercises to develop strength, endurance, range of motion and flexibility. ? Exercises ? SLR 10x LAQ 10x toe wiggles 10x ? ASSESSMENT:? Improving independence and balance. Requires FWW for all transfers and ambulation. Demonstrating safe ambulation for necessary household distances. Will require lift assist into home, as he has 6 ESTELLA and is unable to manage stairs at this time. PLAN: Continue PT intervention to maximize mobility during acute care stay. Appropriate for discharge home once medically stable. TREATMENT CODE/TIME: 84914 ([id number]) DISCHARGE RECOMMENDATION: Home with PT, lift assist into apartment. Requires FWW for transfers and ambulation (issued today) Kellen Ellis, PT, DPT [facility]
[2025-07-08 12:00] VITALS: BP 162/94; PULSE 82; RESP 16; TEMP 37.2; O2SAT 96
--- NOTE | 2025-07-08 13:12 | W.PM.PROGNOT ---
Date of Service Date of service: 07/08/25 Time of Service: 13:53 Assessment and Plan Assessment and plan (1) Closed fracture dislocation of right ankle: Status: Acute (2) Trimalleolar fracture of right ankle: Status: Acute Assessment and plan: Mr. Malcolm is a 60-year-old male who is postop day #2 status post ORIF of right trimalleolar ankle fracture Patient has been doing well. Patient will continue with physical therapy. Will remain nonweightbearing for his right lower extremity. Encourage patient he continue to keep leg elevated as tolerated. Would recommend discharge pending hospitalist and physical therapy. Will follow-up with orthopedic clinic in 2 weeks following surgery for evaluation and x-rays. Subjective Subjective Interval history since last seen: Mr. Malcolm is s postop day #2 status post ORIF of a right trimalleolar ankle fracture. Overall patient has been doing very well. Reports his pain has been well-controlled. Has continued to keep leg elevated most of the time. He denies any chest pain or shortness of breath. He has been able to move his toes. Exam Narrative Exam Narrative: Right lower extremity examination: Splint is in place and dry; no areas of skin breakdown noted along edges of splint. Small area of abrasion is noted along anterior knee without signs of surrounding erythema, edema or calor. Sensation to light touch is intact along toes and knee. Patient is able to demonstrate gentle flexion and extension of toes including great toe. Calf is soft to palpation without discomfort elicited. Const General: cooperative, comfortable and no acute distress Resp Effort & Inspection: normal respiratory effort and able to speak in complete sentences Objective Last Vital Signs Temp 98.8 F 07/08/25 07:53 Pulse 77 07/08/25 07:53 Resp 16 07/08/25 07:53 BP 158/95 H 07/08/25 07:53 Pulse Ox 98 07/08/25 07:53 Laboratory Results - last 24 hr 07/08/25 05:50 WBC 6.77 RBC 3.48 L Hgb 8.6 L Hct 27.9 L MCV 80 MCH 24.7 L MCHC 30.8 L RDW 16.5 H Plt Count 233 MPV 9.5 Immature Gran % 1.9 Neutrophils % 45.1 Lymphocytes % 43.0 Monocytes % 7.8 Eosinophils % 1.5 Basophils % 0.7 Nucleated RBC % 0.0 Absolute Neutrophils 3.05 Absolute Lymphocytes 2.91 Absolute Monocytes 0.53 Absolute Eosinophils 0.10 Absolute Basophils 0.05 Sodium 141 Potassium 3.7 Chloride 104 Carbon Dioxide 27.5 Anion Gap 9.5 BUN 18 Creatinine 0.7 Est GFR (CKD-EPI 2020) 106.14 Glucose 85 Calcium 8.5 Total Bilirubin 0.2 AST 32 ALT 21 Alkaline Phosphatase 75 Creatine Kinase 807 H Total Protein 6.1 L Albumin 2.1 L Valproic Acid 53.6 PAWSS Have you Been Recently Intoxicated or Drunk Within the Last 30 days?: No Have you Ever Experienced Previous Episodes of Alcohol Withdrawal?: No Have you ever Experienced Withdrawal Seizures?: No Have you ever Experienced Delirium Tremens(DT)s?: No Have you ever undergone Alcohol Rehabilitation Treatment (i.e, inpt ot outpatient treatment programs)?: No Have you ever Experienced Blackouts?: No Have you ever Combined Alcohol with other Downers within the last 90 days?: No Have you ever Combined Alcohol with any other Substance of Abuse during the last 90 days?: No Positive Blood Alcohol level on Presentation? [PCS.BAL]: No Evidence of Increased Autonomic Activity (i.e. HR>120, tremor, sweating, agitation, nausea)?: No Result: 0 Time Spent with Patient Time Spent with Patient: <25 minutes Time was spent: preparing to see the patient(eg.review tests), obtaining and/or reviewing separately otained hiistory, referring, communicating with other health childcare worker, counseling the patient and care coordination
--- NOTE | 2025-07-08 13:23 | PTTR_ITS ---
PT Notes Visit Reasons: Right Ankle Fracture, Seizure, Rhabdo Date: 07/07/2025 PRECAUTIONS: Fall. Standard. NWB RLE, Activity as tolerated. SUBJECTIVE: Pt in recliner when approached for therapy this afternoon, pt agreed to participating with therapy session. ? VITALS: monitored by nursing Therapeutic Activities 38620: Direct one-on-one instruction in dynamic activities to improve functional performance. ?? BED MOBILITY/TRANSFERS? Supine-sit: ? independent? Sit-supine: ?independent? Sit-stand: ? ?independnet? Stand-sit: ??independent? Provided skilled cues and instruction on performance and technique throughout. Gait Training 97341: Direct one-on-one instruction and skilled instruction in: Employing an assistive device Modified weight-bearing status Movement sequencing Turning and movement with proper form Provided verbal cues for equipment management and technique Provided instruction in gait pattern Patient education regarding pacing and breathing techniques to maximize activity tolerance? GAIT? Assistive Device: ?FWW ? Weight bearing: NWB RLE Assist: Supervision? Distance:?? 40' ? Deviation: ? hop? Therapeutic Exercises 18002: Direct one-on-one instruction in therapeutic exercises to develop strength, endurance, range of motion and flexibility. Exercises: BLE SLR [id number] LE abduction/adduction [id number] Heel slides [id number] BUE horizontal abduction/adduction [id number] BUE abduction/adduction [id number] Elbow flexion [id number] Forearm pronation/supination [id number] Wrist flexion/extension [id number] ? Provided skilled instruction in proper exercise performance Provided skilled manual cues to facilitate proper muscle recruitment and/or form: ASSESSMENT:?Pt tolerating activity well, did not report chest discomfort during session, pt requested to stay in recliner after session. PLAN: Continue with balance training, global strengthening and general condit ioning for improved safety, mobility and activity tolerance until pt is ready for DC. TREATMENT CODE/TIME: 17947w2, 20344d6 20mins (1:05-1:25pm)
[2025-07-08] MEDS: Methadone Liquid 10 MG/ML 85 MG PO (15:51)
--- NOTE | 2025-07-08 16:06 | W.PM.PROGNOT ---
Date of Service Date of service: 07/08/25 Time of Service: 16:06 Assessment and Plan Assessment and plan (1) Closed fracture dislocation of right ankle: Status: Acute Assessment and plan: -likely resulted from seziure (as noted below) -right trimalleolar fracture as noted on Xray -Orthopedic surgery plans to take patient to the OR this afternoon, 07/06/2025 - now up to 8mg dilaudid every 4 hours as needed pain 07/07/25 S/P Surgical correction. (2) Seizure disorder: Status: Chronic Assessment and plan: -patient states he is normally compliant with his home depakote -it is presumed that the patient had a seziure due to cocaine and THC which were found in his urine (patient does not remember what happeend over the weekend) -seizure led to rhabdo and elevated trop, rib and ankle fractures -patient given IV depakote in the ED to help get back to therapeutic levels -will continue home PO depakote 07/07/15 Depakote ER 500mg po tid. Pt has asked for benzo's twice 2/2 auras. Will add prn Depakote level will be ordered but I believe these are send outs 07/08/25 Valproic acid level 53.6. Will need to continue with titration (3) Elevated troponin: Status: Acute Assessment and plan: -without chest pain or changes in EKG -likely secondary to seizure (as noted above) -trop up to 264, repeat down to 158 - TTE with EF 60% and no regional wall motion abnormality 07/07/25 264->246->158 No symptoms (4) Rhabdomyolysis: Status: Acute Assessment and plan: -secondary to presumed seizure (as noted above) -CK 9679 without increase in Cr -up to 10K as of PM 07/04 -repeat on AM 07/04 down to ~6k -will continue NS at 125ml/hr, follow up repeat CK mid afternoon 07/07/25 9679->10,000->6177 CK values Will check in am. Pt still on NS@125/hour 07/08/26 Most recent CK value is 807 indicating essential resolution of rhabdo (5) Polysubstance abuse: Status: Acute Assessment and plan: -urine positive for cocaine, THC and methadone -likely cause or contributing factor in presumed seizure (as noted above) (6) Fracture of right sixth rib: Status: Acute Assessment and plan: -likely sustained during presumed seiazure along with right 5th rib fracture and right ankle fracture (as noted above) (7) GERD (gastroesophageal reflux disease): Status: Chronic Assessment and plan: -continue home PPI (8) Opioid dependence: Status: Chronic Assessment and plan: -confirming methadone dose, will continue once confirmed (9) Type 2 diabetes mellitus: Assessment and plan: -on metformin, will hold during hospitalization -SSI, CCD Subjective Subjective Interval history since last seen: no new complaints Exam Narrative Exam Narrative: NCAT MMM NO RESPIRATORY DISTRESS NO AMU RLE BANDAGED TO [place] Objective Last Vital Signs Temp 37.2 C 07/08/25 12:00 Pulse 82 07/08/25 12:00 Resp 16 07/08/25 12:00 BP 162/94 H 07/08/25 12:00 Pulse Ox 96 07/08/25 12:00 Laboratory Results - last 24 hr 07/08/25 05:50 WBC 6.77 RBC 3.48 L Hgb 8.6 L Hct 27.9 L MCV 80 MCH 24.7 L MCHC 30.8 L RDW 16.5 H Plt Count 233 MPV 9.5 Immature Gran % 1.9 Neutrophils % 45.1 Lymphocytes % 43.0 Monocytes % 7.8 Eosinophils % 1.5 Basophils % 0.7 Nucleated RBC % 0.0 Absolute Neutrophils 3.05 Absolute Lymphocytes 2.91 Absolute Monocytes 0.53 Absolute Eosinophils 0.10 Absolute Basophils 0.05 Sodium 141 Potassium 3.7 Chloride 104 Carbon Dioxide 27.5 Anion Gap 9.5 BUN 18 Creatinine 0.7 Est GFR (CKD-EPI 2020) 106.14 Glucose 85 Calcium 8.5 Total Bilirubin 0.2 AST 32 ALT 21 Alkaline Phosphatase 75 Creatine Kinase 807 H Total Protein 6.1 L Albumin 2.1 L Valproic Acid 53.6 PAWSS Have you Been Recently Intoxicated or Drunk Within the Last 30 days?: No Have you Ever Experienced Previous Episodes of Alcohol Withdrawal?: No Have you ever Experienced Withdrawal Seizures?: No Have you ever Experienced Delirium Tremens(DT)s?: No Have you ever undergone Alcohol Rehabilitation Treatment (i.e, inpt ot outpatient treatment programs)?: No Have you ever Experienced Blackouts?: No Have you ever Combined Alcohol with other Downers within the last 90 days?: No Have you ever Combined Alcohol with any other Substance of Abuse during the last 90 days?: No Positive Blood Alcohol level on Presentation? [PCS.BAL]: No Evidence of Increased Autonomic Activity (i.e. HR>120, tremor, sweating, agitation, nausea)?: No Result: 0 Time Spent with Patient Time Spent with Patient: 25-34 minutes Time was spent: preparing to see the patient(eg.review tests), obtaining and/or reviewing separately otained hiistory, ordering medications,tests, procedures, referring, communicating with other health care transition coordinator, indepentently interpreting results, counseling the patient and care coordination
[2025-07-08] MEDS: Prazosin 5 MG CAP PO (20:04)
[2025-07-08 20:14] VITALS: BP 139/83; PULSE 87; RESP 16; TEMP 36.4; O2SAT 96
[2025-07-08 23:59] VITALS: BP 142/66; PULSE 79; RESP 18; TEMP 36.6; O2SAT 92
[2025-07-09] MEDS: HYDROmorphone 4 MG TAB 8 MG PO ×4 (00:05→12:08)
[2025-07-09] MEDS: Divalproex Sodium 500 MG TAB.ER.24H PO ×2 (07:49→13:25)
[2025-07-09] MEDS: LORazepam 1 MG TAB PO ×2 (07:49→12:12)
[2025-07-09] MEDS: guaiFENesin 600 MG TABCR PO (07:49)
[2025-07-09] MEDS: Nicotine 21 MG/24 HR PATCH TD (07:49)
[2025-07-09] MEDS: Gabapentin 600 MG TAB PO ×2 (07:49→13:25)
[2025-07-09] MEDS: Normal Saline Flush 10 ML SYR IVP (07:50)
[2025-07-09 07:55] VITALS: BP 158/77; PULSE 85; RESP 17; TEMP 36; O2SAT 93
[2025-07-09] MEDS: Budesonide/Formoterol 160/4.5 6 GM 60 PUFF INH IH (08:12)
[2025-07-09] MEDS: Omeprazole 20 MG CAPCR 40 MG PO (08:39)
[2025-07-09] MEDS: Methadone Liquid 10 MG/ML 95 MG PO (08:40)
--- NOTE | 2025-07-09 09:23 | PTTR_ITS ---
PT Notes Visit Reasons: Right Ankle Fracture, Seizure, Rhabdo SUBJECTIVE: Reports he is going home today. Son will be home to help over the weekend. Will have transport home to allow for assist into his home secondary to the stairs to enter. Reports he feels comfortable getting in/out of bed and hopping with his issued walker. Concerned about his ability to have his methadone doses tonight and tomorrow. OBJECTIVE:? MD entered room and patient asked him for assist with methadone dosing. He will discuss with case management. Treatment: Reviewed status. Recommended urinal for home for night time if needed. Discussed option of w/c for moblity if walking is too challenging, rossana during the day while his son is at work. Recommend HHPT assist with shower chair assessment. He has feels comfortable wiggling his toes and moving his LE. Assessment: Kaushal is a 60 year old male with seizure disorder, admitted 07/04/25 with Closed fracture dislocation of right ankle and fracture of the 6th rib sustained during seizure activity, along with rhabdomyolosis. He is s/p right ankle ORIF 07/06/25 with orders for NWB RLE. Plan: Expect d/c to home later today. Billing Charges: Treatment Units Time Duration Manual Therapy (56493) Hands-on techniques to modulate pain increase joint range of motion reduce or eliminate soft tissue swelling, inflammation, or restriction facilitate relaxation and improve contractile and non-contractile tissue extensibility Therapeutic Procedures (67421) Instruction in therapeutic exercises to develop strength and endurance, range of motion and flexibility. HEP instruction and review: Provided skilled instruction in proper exercise performance: Provided skilled manual cues to facilitate proper muscle recruitment and/or movement?pattern: Neurological Re-Education (36532) to improve balance, coordination, kinesthetic and proprioceptive sensations. Ultrasound (15578) to promote healing Gait Training (12401) Therapeutic Activity (31036) instruction in dynamic activitie s with one on one patient contact by the provider to improve functional performance as follows: 1 13 Self Care Training (49634) Time Coded Treatment Minutes: 13 Total Treatment Time: 13
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
--- NOTE | 2025-07-09 09:55 | CMDISCH_ITS ---
Date of service: 07/09/25 Time of Service: 10:02 LACE Index Scoring Tool Questions: Length of Stay (in days): 4 - 6 Was the patient admitted via the E.D.?: Yes Comorbidities: Diabetes w/o Complication and Chronic Pulmonary Disease E.D. Visits: 1 Answers: Total Score: 11 Risk of Readmission: High Risk Care Management Discharge Plan Reason for Hospitalization: Right Ankle fracture, seizure, rhabdo Discharge Plan: Kaushal will discharge home today with new [facility] PT. It is recommended that he follow up with his community providers and continue per his plan of care. He will return to the Emergency Department tomorrow to receive his two scheduled maintenance doses of Methadone, as [facility] is unable to provide the medication and [facility] is not authorized to fill prescriptions for maintenance Methadone; ED and char house supervisor aware. His son will assist with transportation. Today, Kaushal will be transported home via [facility] and will have a lift assist to get into his home, as coordinated by CM. Patient/Family Education Needs: review of discharge instruction, activity, limitation, and discharge plan of care. Discuss ask me three. Services Needed at Discharge: Home Health Care Services
--- NOTE | 2025-07-09 10:10 | PGE_ITS ---
Date of Service Date of service: 07/09/25 Time of Service: 09:05 Assessment and Plan Assessment and plan (1) Trimalleolar fracture of right ankle: Status: Acute Assessment and plan: Marcin is a 60-year-old male who is status post ORIF of a right trimalleolar ankle fracture. Overall is doing well. His rhabdomyolysis has improved his overall medical condition seems to be stable. He is been able to mobilize. At this point, he may be discharged to home based on physical therapy medicine recommendations. He is nonweightbearing. I will see him back in 2 weeks for repeat evaluation, x-rays, splint removal, and likely boot placement. I recommend elevation until that point except when he is mobilizing. Subjective Subjective Interval history since last seen: Marcin reports to doing well. He has been able to mobilize with nursing and with physical therapy. His pain is better than it was before surgery although achy at times. No reported numbness or tingling. No other acute changes. Exam Narrative Exam Narrative: Sitting up in the chair. No acute distress. Alert and oriented x 3. Right lower extremity is elevated. He is able to demonstrate active extension and flexion of the toes. Sensation intact to light touch over the deep and superficial peroneal nerve and tibial nerve. Cap refill less than 3 seconds. Objective Last Vital Signs Temp 36 C L 07/09/25 07:55 Pulse 85 07/09/25 07:55 Resp 17 07/09/25 07:55 BP 158/77 H 07/09/25 07:55 Pulse Ox 93 07/09/25 07:55 PAWSS Have you Been Recently Intoxicated or Drunk Within the Last 30 days?: No Have you Ever Experienced Previous Episodes of Alcohol Withdrawal?: No Have you ever Experienced Withdrawal Seizures?: No Have you ever Experienced Delirium Tremens(DT)s?: No Have you ever undergone Alcohol Rehabilitation Treatment (i.e, inpt ot outpatient treatment programs)?: No Have you ever Experienced Blackouts?: No Have you ever Combined Alcohol with other Downers within the last 90 days?: No Have you ever Combined Alcohol with any other Substance of Abuse during the last 90 days?: No Positive Blood Alcohol level on Presentation? [PCS.BAL]: No Evidence of Increased Autonomic Activity (i.e. HR>120, tremor, sweating, agitation, nausea)?: No Result: 0 Time Spent with Patient Time Spent with Patient: <25 minutes Time was spent: preparing to see the patient(eg.review tests), obtaining and/or reviewing separately otained hiistory and referring, communicating with other health patient care specialist
[2025-07-09] MEDS: Methadone Liquid 10 MG/ML 85 MG PO (14:03)
--- NOTE | 2025-07-11 10:02 | PDOC.HHF2F_ITS ---
Date of service: 07/10/25 Time of Service: 13:00 Home Health Referral Home Health Orders Clinical synopsis of why skilled professionals are needed: ankle fracture Medical diagnosis necessitation home health referral: ankle fracture Physical Therapist: Check all that apply Increase strength & endurance for safe mobility at home: Ordered To design/establish home maintenance program: Ordered Fall reduction therapy program for patient with history of frequent falls: Ordered Home safety evaluation and teaching/gait training including stair management (if applicable): Ordered Encounter Date and Reason: I certify that a FTF encounter for this patient was performed on July 11, 2025 and that such encounter was related to the primary reason the patient requires home health services. The encounter was conducted in the following manner: * By me as the certifying physician, CLINICAL PROGRAM DIRECTOR, PA or * By an inpatient physician, CLINICAL PROGRAM DIRECTOR or PA during an inpatient stay who communicated findings to me, Certification And Authentication I certify that I composed the above information based on my clinical judgment relating to this patient's medical condition and, if applicable, clinical findings communicated to me by the NPP or inpatient physician who performed the FTF encounter. Name of Provider that will be monitoring home health services: Fabrice Salcedo
== END 2025-07-09 14:07 | disposition home health service (06) | DRG 493 ==
LOC: ER 01:15 → MS 09:56
PROVIDERS: Student in an Organized Health Care Education/Training Program; Admitting Provider Family Medicine; Emergency Provider Emergency Medicine; PCP Physician Assistant; Responsible Provider Hospitalist; Visit Provider Family Medicine
PROC: 0QSJ04Z Reposition Right Fibula with Internal Fixation Device, Open Approach (ICD-10-PCS; CPT 27822; principal; 2025-07-06 16:00)
DX: S82.851A Displaced trimalleolar fracture of right lower leg, initial encounter for closed fracture (principal); E87.1 Hypo-osmolality and hyponatremia; F11.20 Opioid dependence, uncomplicated; S22.41XA Multiple fractures of ribs, right side, initial encounter for closed fracture; M62.82 Rhabdomyolysis; G40.109 Localization-related (focal) (partial) symptomatic epilepsy and epileptic syndromes with simple partial seizures, not intractable, without status epilepticus; K21.9 Gastro-esophageal reflux disease without esophagitis; E11.9 Type 2 diabetes mellitus without complications; W19.XXXA Unspecified fall, initial encounter; E66.9 Obesity, unspecified; S06.9XAS Unspecified intracranial injury with loss of consciousness status unknown, sequela; D64.9 Anemia, unspecified; Z79.899 Other long term (current) drug therapy; F19.10 Other psychoactive substance abuse, uncomplicated; J44.9 Chronic obstructive pulmonary disease, unspecified; F43.10 Post-traumatic stress disorder, unspecified; F51.4 Sleep terrors [night terrors]; F41.0 Panic disorder [episodic paroxysmal anxiety]; R74.8 Abnormal levels of other serum enzymes; Z79.84 Long term (current) use of oral hypoglycemic drugs; F14.90 Cocaine use, unspecified, uncomplicated; F12.90 Cannabis use, unspecified, uncomplicated; E87.6 Hypokalemia; Z68.33 Body mass index [BMI] 33.0-33.9, adult
CPT/HCPCS: 27822; 00123; 27818; 36415; 64445; 64447; 74177; 76000; 80048; 80053; 80307; 82550; 82805; 83690; 85027; 93005; 94640; 96361; 96365; 96367; 96375; 97032; 97110; 97162; 97530; 99222; 99232; 99291; 70450; 71260; 72125; 73590; 73600; 73610; 80164; 80320; 81003; 81015; 83735; 84484; 85025; 93010; 93306; 94664; 94760; 99223; 99231; 99233; 99239; J0131; J0166; J0665; J0666; J0690; J1171; J1815; J1885; J2003; J2250; J2270; J2405; J2704; J3480; J3490; J7620

== ENCOUNTER 2025-07-10 05:47 | Emergency (ER) | payer MEDICARE, SELFPAY ==
[2025-07-10 05:55] VITALS: BP 163/86; PULSE 110; RESP 18; O2SAT 91
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
[2025-07-10] MEDS: Methadone Liquid 10 MG/ML 95 MG PO (08:37)
[2025-07-10 08:42] VITALS: BP 126/69; PULSE 78; TEMP 36.6; O2SAT 100
== END 2025-07-10 08:42 | disposition home or self-care (01) ==
PROVIDERS: Emergency Provider Emergency Medicine; PCP Physician Assistant
DX: Z76.0 Encounter for issue of repeat prescription (principal); F11.20 Opioid dependence, uncomplicated
CPT/HCPCS: 99283

== ENCOUNTER 2025-07-10 13:12 | Emergency (ER) | payer MEDICARE, SELFPAY ==
[2025-07-10 13:15] VITALS: BP 134/98; PULSE 99; RESP 20; TEMP 36.7; O2SAT 97
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
[2025-07-10] MEDS: Methadone Liquid 10 MG/ML 85 MG PO (13:50)
== END 2025-07-10 13:53 | disposition home or self-care (01) ==
PROVIDERS: Emergency Provider Emergency Medicine; PCP Physician Assistant
DX: F11.20 Opioid dependence, uncomplicated (principal)
CPT/HCPCS: 99283 ×2

== ENCOUNTER 2025-07-21 14:41 | Outpatient (CLI) | payer MEDICARE, SELFPAY ==
--- NOTE | 2025-07-21 13:00 | DI.RAD_ITS ---
Exam(s) XR ANKLE RT COMPLETE EXAM: XR ANKLE RT COMPLETE CLINICAL HISTORY: ORIF R ankle. TECHNIQUE: 2D digital imaging was performed. COMPARISON: CR,XR XR ANKLE RT COMPLETE from 07/04/2025 XA XR ANKLE RT 2V from 07/06/2025 FINDINGS: 3 views Again noted is recently placed hardware (07/06/2025) comprised of a lateral fixation plate across the distal fibula and 2 screws across the medial malleolus fracture site. Hardware appears stable no loosening and no evidence of osteomyelitis. Fracture line in the medial malleolus is still visible but fragment appears in satisfactory alignment on these images. There is no widening the ankle mortise. Talar dome appears unremarkable. IMPRESSION: Stable satisfactory appearance. DATA REPOSITORY: RADIATION DOSE DELIVERED:
== END 2025-07-21 14:42 | disposition home or self-care (01) ==
LOC: DIORS 14:41
PROVIDERS: PCP Physician Assistant; Referring Provider Physician Assistant; Visit Provider Student in an Organized Health Care Education/Training Program
DX: S82.851D Displaced trimalleolar fracture of right lower leg, subsequent encounter for closed fracture with routine healing (principal); X58.XXXD Exposure to other specified factors, subsequent encounter
CPT/HCPCS: 99024; 73610

== ENCOUNTER 2025-08-04 12:29 | Outpatient (REF) | payer MEDICARE, MEDICAID, SELFPAY ==
[2025-08-04 19:00] LABS: HCT 32.0 % (40.0-50.0); HGB 9.8 g/dL (13.5-17.5); MCH 24.8 pg (27.0-33.0); MCHC 30.6 % (32.0-36.0); MCV 81 fL (80-95); MPV 9.9 fL (8.0-11.0); Platelet Count 266 10^3/uL (130-400); RBC 3.95 10^6/uL (4.36-5.78); RDW 15.6 % (11.8-14.1); RDW-SD 45.5 fL; WBC 7.02 10^3/uL (4.4-10.8)
[2025-08-04 19:13] LABS: ALT 11 U/L (16-63); AST 13 U/L (15-37); Albumin 2.8 g/dL (3.4-5.0); Alkaline Phosphatase 129 U/L (46-116); Anion Gap 8.2 mmol/L (3-11); BUN 19 mg/dL (7-18); Bilirubin, Total 0.1 mg/dL (0.2-1.0); CO2 27.8 mmol/L (21.0-32.0); Calcium 9.0 mg/dL (8.5-10.1); Calculated LDL 129 mg/dL (<100); Chloride 100 mmol/L (98-107); Cholesterol 225 mg/dL (<200); Estimated GFR 69.66 (mL/min/1.73m2); Glucose 120 mg/dL (74-106); HDL Cholesterol 43 mg/dL (>or=40); Potassium 4.3 mmol/L (3.5-5.1); Sodium 136 mmol/L (136-145); Total Protein 6.7 g/dL (6.4-8.2); Triglyceride 266 mg/dL (<150)
[2025-08-04 19:35] LABS: Hemoglobin A1C 6.1 % (<5.7)
== END 2025-08-04 12:30 | disposition home or self-care (01) ==
LOC: NCHCN 12:29
PROVIDERS: PCP Physician Assistant; Visit Provider Physician Assistant
DX: D64.9 Anemia, unspecified (principal); E78.5 Hyperlipidemia, unspecified; E11.9 Type 2 diabetes mellitus without complications; R56.9 Unspecified convulsions
CPT/HCPCS: 80053; 80061; 85027; 80164; 83036

== ENCOUNTER 2025-09-22 15:42 | Outpatient (CLI) | payer MEDICARE, MEDICAID, SELFPAY ==
--- NOTE | 2025-09-22 14:00 | DI.RAD_ITS ---
Exam(s) XR ANKLE RT COMPLETE EXAM: XR ANKLE RT COMPLETE CLINICAL HISTORY: S/P ORIF R ANKLE. TECHNIQUE: 2D digital imaging was performed. Three views. COMPARISON: CR XR ANKLE RT COMPLETE from 07/21/2025 FINDINGS: BONES: Stable fracture and hardware alignment. Continued fracture healing. No acute fracture is present. No bony destructive lesion is seen. Heel spurs again noted. JOINTS: The ankle mortise is normally aligned. SOFT TISSUE: Anterior soft tissue swelling. IMPRESSION: Stable fracture and hardware alignment. DATA REPOSITORY: RADIATION DOSE DELIVERED:
== END 2025-09-22 15:43 | disposition home or self-care (01) ==
LOC: DIORS 15:43
PROVIDERS: PCP Physician Assistant; Referring Provider Physician Assistant; Visit Provider Student in an Organized Health Care Education/Training Program
DX: S82.851D Displaced trimalleolar fracture of right lower leg, subsequent encounter for closed fracture with routine healing (principal); X58.XXXD Exposure to other specified factors, subsequent encounter; G57.31 Lesion of lateral popliteal nerve, right lower limb
CPT/HCPCS: 99024; 73610